=== PATIENT | male | born 1960 | race Caucasian/White ===

== ENCOUNTER 2022-11-29 22:46 | Inpatient (IN) | payer OTHER, SELFPAY ==
--- NOTE | 2022-11-29 | ECG_ITS ---
Test Reason : DYSPENA Blood Pressure : / mmHG Vent. Rate : 154 BPM Atrial Rate : 000 BPM P-R Int : 000 ms QRS Dur : 076 ms QT Int : 300 ms P-R-T Axes : 000 101 061 degrees QTc Int : 480 ms Atrial fibrillation with rapid ventricular response Rightward axis Septal infarct , age undetermined Abnormal ECG No previous ECGs available Referred By: Generic ED Physician Electronically Signed By:ABHISHEK HERNANDEZ
--- NOTE | ~2022-11-29 | XR_ITS ---
EXAMINATION: XR CHEST CLINICAL INFORMATION: SOB COMPARISON: None available. TECHNIQUE: Frontal view of the chest was obtained. FINDINGS: There is mild haziness along the right lung base likely from pleural effusion. There are bilateral patchy opacities throughout both lungs more prominent in the parahilar region suggestive of infiltrates. Heart size and pulmonary vascularity is normal. No gross bony abnormality. XR/XR chest 1V IMPRESSION: 1. Bilateral patchy opacities suggestive of infiltrates. 2. Suspect small to moderate right pleural effusion.
[2022-11-29 22:49] VITALS: BP 168/100; PULSE 95; O2SAT 93
[2022-11-29 22:58] VITALS: PULSE 92; RESP 20; O2SAT 95; BMI 24.5
--- NOTE | 2022-11-29 23:00 | MHC.EDTECH ---
patient came in via ems ,vitals sign taken pt was hooked up to residential monitor ,pt was change into hospital attire .
--- NOTE | 2022-11-29 23:10 | PC.NURSE ---
Valerie, management trainee program stores at at [facility] contacted for more detailed list of pts medications. states she will try to have someone drop it off.
--- NOTE | 2022-11-29 23:30 | ED.GENADULT ---
HPI - General Adult General Chief complaint: Dyspnea Stated complaint: SHORT OF BREATH Time Seen by Provider: 11/29/22 23:25 Source: patient and EMS Mode of arrival: EMS Limitations: no limitations History of Present Illness HPI narrative: 62-year-old male came in by ambulance for evaluation of shortness of breath. Patient has been having shortness of breath for the past 4 days that is worsening when he lay supine in bed, no chest pain, patient overall is a poor historian unable to provide adequate history known history of atrial fibrillation that patient is taking Eliquis for it. No recent travel, no recent prolonged immobilization. Related Data Allergies Allergy/AdvReac Type Severity Reaction Status Date / Time No Known Allergies Allergy Unverified 02/25/20 19:51 [No Known Allergies*] Review of Systems Review of Systems: All other systems are reviewed and are negative Constitutional: Reports as per HPI and Reports no additional constitutional complaints Eyes: Reports as per HPI and Reports no additional eye complaints Reports system reviewed and no additional complaints, except as documented Cardiovascular: Reports as per HPI and Reports no additional cardiovascular complaints Respiratory: Reports as per HPI and Reports no additional respiratory complaints Gastrointestinal: Reports as per HPI and Reports no additional gastrointestinal complaints Genitourinary: Reports no additional female genitourinary complaints Musculoskeletal: Reports no additional musculoskeletal complaints Skin/Breast: Reports system reviewed and no additional complaints, except as docu Psychiatric: Reports no additional psychiatric complaints Endocrine: Reports no additional endocrine complaints Hematologic/Lymphatic: Reports no additional hematologic/lymphatic complaints Allergic/Immunologic: Reports no additional allergic/immunologic complaints Reports system reviewed and no additional complaints, except as documented and Reports Abnormal speech present [facility] Social History Social History Advance Directives: No Advance Directives Information Provided: Yes Physical Exam ED Vital Signs: Vital Signs - 24 hr 11/29/22 22:58 11/29/22 23:32 11/29/22 23:40 Temperature 97.8 F Pulse Rate 92 144 H 161 H Respiratory Rate 20 18 19 Blood Pressure 158/86 H 167/96 H Pulse Oximetry 95 97 96 Oxygen Delivery Method Nasal Cannula Nasal Cannula Room Air Oxygen Flow Rate 2 11/30/22 00:01 11/30/22 00:10 11/30/22 00:32 Temperature Pulse Rate 167 H 155 H 119 H Respiratory Rate 20 20 20 Blood Pressure 148/97 H 143/94 H 128/96 H Pulse Oximetry 94 95 98 Oxygen Delivery Method Nasal Cannula Nasal Cannula Oxygen Flow Rate BMI result Body Mass Index 24.5 Vital signs have been reviewed as appeared to be correct. Blood pressure normal. Heart rate elevated. Respiration rate normal. Temperature normal. Oxygen saturation normal. Appearance: Alert. Oriented X3. No acute distress. Head: Normal external exam. Normocephalic. Atraumatic. No Parker signs noted. No raccoon eyes noted Eyes: PERRLA. EOMI. Conjunctiva and sclera normal. Eyelids normal. ENT: TM's Normal. Pharynx normal. Uvula midline. Moist mucous membranes. No trismus noted. No drooling noted. No muffled voice noted. Neck: Normal inspection. Neck supple. FROM. No adenopathy. Thyroid Normal. No meningeal signs. No neck mass noted. CVS: Irregular rapid heartbeat.. No murmurs noted. Pulses normal throughout. Respiratory: No respiratory distress. Painless inspiration. Breath sounds normal. No wheezes/rales/rhonchi noted. Chest nontender. No accessory muscle usage noted or decreased air movement noted. Abdomen: Soft and nontender. Bowel sounds normal in all 4 quadrants. No distention noted. No organomegaly noted. No visible injury noted. Back: No CVA tenderness. Full range of motion noted. Skin: Skin warm and dry. Normal skin color. Normal skin turgor. No rashes/lesions/lacerations noted. Extremities: No lower extremity edema. Extremities exhibit normal range of motion. Extremities nontender. Neuro: Oriented X 3. Cranial nerve exam: II-XII are grossly intact No motor deficit. No sensory deficit. Reflexes normal. Course Course Course Narrative: 62-year-old male presented with atrial fibrillation with RVR and shortness of breath with mild CHF, patient required multiple doses of Cardizem and started on Cardizem IV drip to control the heart rate. Patient feels better, heart rate now ranging from 80 to 110s. X-ray is suggestive for bilateral pneumonia no sirs criteria, no severe sepsis, no septic shock. Admit to the hospitalist service Medications Administered Generic Name Dose Route Start Last Admin Trade Name Freq PRN Reason Stop Dose Admin Diltiazem HCl 125 mg/ Sodium 125 mls @ 0 mls/hr 11/30/22 00:15 11/30/22 00:33 Chloride IVCONT 10 mg/hr .Q0M ROGE 10 mls/hr Administration Protocol Per Protocol Discontinued Medications Generic Name Dose Route Start Last Admin Trade Name Negrita PRN Reason Stop Dose Admin Diltiazem HCl 20 mg 11/29/22 23:29 11/29/22 23:48 Diltiazem Hcl 50 Mg/10 Ml Vial IVPUSH 11/29/22 23:30 20 mg STAT STA Administration Diltiazem HCl 20 mg 11/30/22 00:07 11/30/22 00:11 Diltiazem Hcl 50 Mg/10 Ml Vial IVPUSH 11/30/22 00:08 20 mg STAT STA Administration Medical Decision Making Differential Diagnosis Differential Diagnoses: The differential diagnosis associated with the presentation includes (AFib with RVR, ACS, CHF, electrolyte abnormalities, severe anemia.) Admission/Observation Consideration of admission/observation: Escalation of care including admission/observation considered Consult Healthcare Provider Management of the patient was discussed with: Hospitalist (Dr. Nagy.) Lab Data MDM Lab Attestation statement: I reviewed the patient's lab results. 11/29/22 23:30 11/29/22 23:30 Labs: Lab Results 11/29/22 11/29/22 11/29/22 Range/Units 23:30 23:30 23:30 WBC 8.6 (4.8-10.8) X10*3/uL RBC 3.87 L (4.60-5.80) X10*6/uL Hgb 11.1 L (14.0-18.0) g/dl Hct 34.6 L (42.0-52.0) % MCV 89.4 (80.0-98.0) fL MCH 28.7 (27.0-33.0) pg MCHC 32.1 (31.0-36.0) g/dl RDW 16.0 (11.0-16.0) % Plt Count 288 (160-400) X10*3/uL MPV 9.4 (9.4-12.4) fL Immature Gran % (Auto) 1.9 H (0.0-0.4) % Neut % (Auto) 72.3 (45-73) % Lymph % (Auto) 11.5 L (20-40) % Charles % (Auto) 13.0 H (2-11) % Eos % (Auto) 0.8 (0-4) % Baso % (Auto) 0.5 (0-2) % Lymph # (Auto) 1.0 L (1.2-4.9) X10*3/uL Charles # (Auto) 1.1 (0.1-1.2) X10*3/uL Eos # (Auto) 0.1 (0.0-0.4) X10*3/uL Baso # (Auto) 0.0 (0.0-0.2) X10*3/uL Abs Immat Gran (auto) 0.16 H (0.00-0.03) X10*3/uL Absolute Neuts (auto) 6.2 (2.0-8.3) x10*3/uL Absolute Nucleated RBC 0.000 (0.0-0.012) X10*3/uL Nucleated RBC % (auto) 0.0 (0.0-0.2) /100WBC PT (10.0-13.1) SEC INR (0.9-1.1) Sodium 134 L (135-145) mmol/L Potassium 4.4 (3.3-5.1) mmol/L Chloride 99 (96-108) mmol/L Carbon Dioxide 23 (22-29) mmol/L Anion Gap 16 (12-20) BUN 20 H (9-16) mg/dL Creatinine 0.82 (0.5-1.4) mg/dL Estim Creat Clear Calc 86.4 Estimated GFR > 60 Random Glucose 423 H* (60-115) mg/dL Lactic Acid (0.5-2.0) mmol/L Calcium 10.0 (8.4-10.2) mg/dL Total Bilirubin 1.7 H (0.0-1.0) mg/dL AST 61 H (5-37) U/L ALT 106 H (0-40) U/L Alkaline Phosphatase 207 H (39-117) U/L Troponin I High Sens (<3.5-35.0) ng/L B-Natriuretic Peptide 1261 H (<100) pg/mL Total Protein 6.9 (6.5-8.0) g/dL Albumin 3.7 (3.5-5.0) g/dL Urine Color Urine Appearance Urine pH (5.0-9.0) Ur Specific Raymond (1.005-1.025) Urine Protein (Neg-Trace) mg/dL Urine Glucose (UA) (Negative) mg/dL Urine Ketones (Negative) mg/dL Urine Blood (Negative) Urine Nitrite (Negative) Ur Leukocyte Esterase (Negative) Urine RBC (0-2) /HPF Urine WBC (0-5) /HPF Ur Squamous Epith Cells (0-2) /HPF Urine Bacteria (None Seen) Hyaline Casts (0-2) /LPF 11/29/22 11/29/22 11/29/22 Range/Units 23:30 23:30 23:36 WBC (4.8-10.8) X10*3/uL RBC (4.60-5.80) X10*6/uL Hgb (14.0-18.0) g/dl Hct (42.0-52.0) % MCV (80.0-98.0) fL MCH (27.0-33.0) pg MCHC (31.0-36.0) g/dl RDW (11.0-16.0) % Plt Count (160-400) X10*3/uL MPV (9.4-12.4) fL Immature Gran % (Auto) (0.0-0.4) % Neut % (Auto) (45-73) % Lymph % (Auto) (20-40) % Charles % (Auto) (2-11) % Eos % (Auto) (0-4) % Baso % (Auto) (0-2) % Lymph # (Auto) (1.2-4.9) X10*3/uL Charles # (Auto) (0.1-1.2) X10*3/uL Eos # (Auto) (0.0-0.4) X10*3/uL Baso # (Auto) (0.0-0.2) X10*3/uL Abs Immat Gran (auto) (0.00-0.03) X10*3/uL Absolute Neuts (auto) (2.0-8.3) x10*3/uL Absolute Nucleated RBC (0.0-0.012) X10*3/uL Nucleated RBC % (auto) (0.0-0.2) /100WBC PT 12.0 (10.0-13.1) SEC INR 1.0 (0.9-1.1) Sodium (135-145) mmol/L Potassium (3.3-5.1) mmol/L Chloride (96-108) mmol/L Carbon Dioxide (22-29) mmol/L Anion Gap (12-20) BUN (9-16) mg/dL Creatinine (0.5-1.4) mg/dL Estim Creat Clear Calc Estimated GFR Random Glucose (60-115) mg/dL Lactic Acid 2.5 H* (0.5-2.0) mmol/L Calcium (8.4-10.2) mg/dL Total Bilirubin (0.0-1.0) mg/dL AST (5-37) U/L ALT (0-40) U/L Alkaline Phosphatase (39-117) U/L Troponin I High Sens 69.6 H (<3.5-35.0) ng/L B-Natriuretic Peptide (<100) pg/mL Total Protein (6.5-8.0) g/dL Albumin (3.5-5.0) g/dL Urine Color Urine Appearance Urine pH (5.0-9.0) Ur Specific Raymond (1.005-1.025) Urine Protein (Neg-Trace) mg/dL Urine Glucose (UA) (Negative) mg/dL Urine Ketones (Negative) mg/dL Urine Blood (Negative) Urine Nitrite (Negative) Ur Leukocyte Esterase (Negative) Urine RBC (0-2) /HPF Urine WBC (0-5) /HPF Ur Squamous Epith Cells (0-2) /HPF Urine Bacteria (None Seen) Hyaline Casts (0-2) /LPF 11/30/22 Range/Units 00:00 WBC (4.8-10.8) X10*3/uL RBC (4.60-5.80) X10*6/uL Hgb (14.0-18.0) g/dl Hct (42.0-52.0) % MCV (80.0-98.0) fL MCH (27.0-33.0) pg MCHC (31.0-36.0) g/dl RDW (11.0-16.0) % Plt Count (160-400) X10*3/uL MPV (9.4-12.4) fL Immature Gran % (Auto) (0.0-0.4) % Neut % (Auto) (45-73) % Lymph % (Auto) (20-40) % Charles % (Auto) (2-11) % Eos % (Auto) (0-4) % Baso % (Auto) (0-2) % Lymph # (Auto) (1.2-4.9) X10*3/uL Charles # (Auto) (0.1-1.2) X10*3/uL Eos # (Auto) (0.0-0.4) X10*3/uL Baso # (Auto) (0.0-0.2) X10*3/uL Abs Immat Gran (auto) (0.00-0.03) X10*3/uL Absolute Neuts (auto) (2.0-8.3) x10*3/uL Absolute Nucleated RBC (0.0-0.012) X10*3/uL Nucleated RBC % (auto) (0.0-0.2) /100WBC PT (10.0-13.1) SEC INR (0.9-1.1) Sodium (135-145) mmol/L Potassium (3.3-5.1) mmol/L Chloride (96-108) mmol/L Carbon Dioxide (22-29) mmol/L Anion Gap (12-20) BUN (9-16) mg/dL Creatinine (0.5-1.4) mg/dL Estim Creat Clear Calc Estimated GFR Random Glucose (60-115) mg/dL Lactic Acid (0.5-2.0) mmol/L Calcium (8.4-10.2) mg/dL Total Bilirubin (0.0-1.0) mg/dL AST (5-37) U/L ALT (0-40) U/L Alkaline Phosphatase (39-117) U/L Troponin I High Sens (<3.5-35.0) ng/L B-Natriuretic Peptide (<100) pg/mL Total Protein (6.5-8.0) g/dL Albumin (3.5-5.0) g/dL Urine Color Yellow Urine Appearance Clear Urine pH 6.5 (5.0-9.0) Ur Specific Raymond >= 1.030 H (1.005-1.025) Urine Protein Trace (Neg-Trace) mg/dL Urine Glucose (UA) >=1000 H (Negative) mg/dL Urine Ketones Negative (Negative) mg/dL Urine Blood Negative (Negative) Urine Nitrite Negative (Negative) Ur Leukocyte Esterase Negative (Negative) Urine RBC 0-2 (0-2) /HPF Urine WBC 0-5 (0-5) /HPF Ur Squamous Epith Cells 0-2 (0-2) /HPF Urine Bacteria None Seen (None Seen) Hyaline Casts 0-2 (0-2) /LPF Independent Interpretation I performed an independent interpretation of an: EKG (Atrial fibrillation at 154 beats per minutes, right axis deviation, normal intervals, no ST-T changes, no old EKG to compare.) and Plain X-Ray (Chest: No acute intrathoracic pathology) Radiology Impression Discussion of test interpretation with radiology: I have reviewed the radiologist's reading. Discharge Plan Discharge Clinical Impression: Congestive heart failure, Atrial fibrillation with RVR, Pneumonia Patient Disposition: Admitted As Inpatient
[2022-11-29 23:32] VITALS: BP 158/86; PULSE 144; RESP 18; TEMP 36.6; O2SAT 97
[2022-11-29 23:40] VITALS: BP 167/96; PULSE 161; RESP 19; O2SAT 96
[2022-11-29 23:43] LABS: MANUAL DIFF FLAG NO
[2022-11-29 23:44] LABS: Basophils Percent Auto 0.5 % (0-2); Eosinophils Absolute Auto 0.1 X10*3/uL (0.0-0.4); Eosinophils Percent Auto 0.8 % (0-4); Hematocrit 34.6 % (42.0-52.0); Hemoglobin 11.1 g/dl (14.0-18.0); Imm Gran Abs Auto 0.16 X10*3/uL (0.00-0.03); Imm Gran Pct Auto 1.9 % (0.0-0.4); Lymphocytes Percent Auto 11.5 % (20-40); Mean Corpuscular HGB Conc 32.1 g/dl (31.0-36.0); Mean Corpuscular Hemoglobin 28.7 pg (27.0-33.0); Mean Corpuscular Volume 89.4 fL (80.0-98.0); Mean Platelet Volume 9.4 fL (9.4-12.4); Monocytes Absolute Auto 1.1 X10*3/uL (0.1-1.2); Neutrophils Absolute Auto 6.2 x10*3/uL (2.0-8.3); Neutrophils Percent Auto 72.3 % (45-73); Platelet Count 288 X10*3/uL (160-400); Red Blood Count 3.87 X10*6/uL (4.60-5.80); White Blood Count 8.6 X10*3/uL (4.8-10.8)
[2022-11-29] MEDS: dilTIAZem HCL 50 MG/10 ML VIAL 20 MG IVPUSH (23:48)
[2022-11-29 23:58] LABS: Lactic Acid 2.5 mmol/L (0.5-2.0)
--- NOTE | 2022-11-29 23:59 | MHC.EDTECH ---
PT 0000 ROUNDING DONE VITALS SIGN TAKEN ,EKG TAKEN AND WAS READ BY PROVIDER ,2ND SET BLOOD CULTURE DRAWN AND SENT TO LAB ,600 ML URINE EMPTY ,WARM BLANKET AND PILLOWS GIVEN ,PT DRANK 120 ML WATER .
[2022-11-30] VITALS (21 sets, daily range): BP systolic 110–188; BP diastolic 60–97; PULSE 67–167; RESP 16–24; TEMP 36.6–37.7; O2SAT 91–98; BMI 25.4
[2022-11-30 00:03] LABS: Alanine Aminotransferase 106 U/L (0-40); Albumin Level 3.7 g/dL (3.5-5.0); Alkaline Phosphatase 207 U/L (39-117); Anion Gap 16 (12-20); Aspartate Amino Transferase 61 U/L (5-37); B Type Natriuretic Peptide 1261 pg/mL (<100); Bilirubin Total 1.7 mg/dL (0.0-1.0); Blood Urea Nitrogen 20 mg/dL (9-16); Carbon Dioxide 23 mmol/L (22-29); Chloride 99 mmol/L (96-108); Creatinine Clr Calc Pharmacy 86.4; Estimated Glomerular Filt Rate > 60; Glucose Random 423 mg/dL (60-115); Potassium 4.4 mmol/L (3.3-5.1); Sodium 134 mmol/L (135-145); Total Protein 6.9 g/dL (6.5-8.0); Troponin-I High Sensitivity 69.6 ng/L (<3.5-35.0)
[2022-11-30] MEDS: dilTIAZem HCL 50 MG/10 ML VIAL 20 MG IVPUSH (00:11)
[2022-11-30 00:18] LABS: Appearance Urine Clear; Color Urine Yellow; Glucose Urine UA >=1000 mg/dL (Negative); Leukocyte Esterase Urine Negative (Negative); Nitrite Urine Negative (Negative); PH 6.5 (5.0-9.0); Specific Gravity - Urine >= 1.030 (1.005-1.025); UMIC TRIGGER UACC YES; Urine Blood Negative (Negative); Urine Ketones Negative (Negative); Urine Protein Trace mg/dL (Neg-Trace)
[2022-11-30 00:20] LABS: Bacteria Urine None Seen (None Seen); Hyaline Casts Urine 0-2 /LPF (0-2); RBC Urine 0-2 /HPF (0-2); Squamous Epithelial Cell Urine 0-2 /HPF (0-2); WBC Urine 0-5 /HPF (0-5)
[2022-11-30] MEDS: dilTIAZem HCL 125 MG in 0.9 % Sodium Chloride 100 ML 10 MG IVCONT (00:33)
--- NOTE | 2022-11-30 00:49 | P.HPHOSP_ITS ---
History of Present Illness Date of Service: 11/30/22 Chief Complaint: Dyspnea This is a 62-year-old male with pertinent history of congestive heart failure, unspecified ejection fraction, AFib on anticoagulation, mood disorder, insulin- dependent diabetes mellitus with neuropathy, essential hypertension, mixed hype rlipidemia presents to the emergency department for evaluation of dyspnea. Patient states he has been having dyspnea for the last 5 days. It has been progressive and worse with ambulation. Also complains of orthopnea and PND. Patient states he stopped taking his Lasix 1 week ago as it made him pee too much. Does endorse palpitations. He denies fever, chills, cough, chest discomfort, abdominal pain, changes in urinary or bowel habits. In the emergency department, patient was found to be in AFib with RVR. He was found to be hypoxemic and placed on supplemental oxygen Review of Systems Constitutional: Constitutional: Reports no additional constitutional complaints Cardiovascular: Cardiovascular: Reports dyspnea on exertion, Reports orthopnea and Reports paroxysmal nocturnal dyspnea Respiratory: Respiratory: Reports dyspnea on exertion Gastrointestinal: Gastrointestinal: Reports no additional gastrointestinal complaints Genitourinary: Genitourinary: Reports no additional male genitourinary complaints [facility] Medical History Atrial fibrillation with RVR Congestive heart failure Insulin dependent type 2 diabetes mellitus Mood disorder Peripheral neuropathy Pertinent family history: No family history of early CAD Social History Advance Directives: No Advance Directives Information Provided: Yes Meds Allergies Allergy/AdvReac Type Severity Reaction Status Date / Time No Known Allergies Allergy Unverified 02/25/20 19:51 [No Known Allergies*] Active Medications: Current Medications Dextrose (Dextrose 50 % 25 Gm/50 Ml Syringe) 25 gm IVPUSH Q15M PRN; Protocol PRN Reason: per Hypoglycemia Standing Ord. Furosemide (Furosemide 40 Mg/4 Ml Vial) 40 mg IVPUSH ONCE ONE; Protocol Stop: 11/30/22 00:42 Furosemide (Furosemide 40 Mg/4 Ml Vial) 40 mg IVPUSH DAILY ROGE; Protocol Glucose (Glucose Gel 15 Gm Gel..Gram.) 15 gm PO Q15M PRN; Protocol PRN Reason: per Hypoglycemia Standing Ord. Diltiazem HCl 125 mg/ Sodium (Chloride) 125 mls @ 0 mls/hr IVCONT .Q0M [facility]; Protocol Last Titration: 11/30/22 00:47 Dose: 15 mg/hr, 15 mls/hr Insulin Human Lispro (Insulin Lispro 100 Unit/Ml 3 Ml Vial) 0 unit SUBCUT QIDACHS [facility]; Protocol Pharmacy Consult (Consult Rx Perform Med Rec) 1 each MISCELLANE ONCE PRN PRN Reason: Consult order Pharmacy Consult (Consult Rx Perform Med Rec) 1 each MISCELLANE ONCE PRN PRN Reason: Consult order Trazodone HCl (Trazodone Hcl 100 Mg Tablet) 100 mg PO ONCE ONE Stop: 11/30/22 00:48 Physical Exam Vital Signs and Narrative: Vital Signs: Last Vital Signs Temp 97.8 F 11/29/22 23:32 Pulse 119 H 11/30/22 00:32 Resp 20 11/30/22 00:32 BP 128/96 H 11/30/22 00:32 Pulse Ox 98 11/30/22 00:32 O2 Del Method Nasal Cannula 11/30/22 00:32 O2 Flow Rate 2 11/29/22 23:32 Oxygen Flow Rate 3 11/29/22 22:58 BMI result Body Mass Index 24.5 Middle-aged male lying in bed in mild distress on supplemental oxygen Neck supple, JVD + Irregularly irregular, S1-S2 heard Bilateral crackles without wheezing Abdomen soft nontender, no guarding, no rigidity Patient is awake, alert and oriented to self, place, time and person ; no focal motor deficit Psych: Normal mood Bilateral pedal edema Results Labs 11/29/22 23:30 11/29/22 23:30 Labs: Laboratory Results - last 24 hr 11/29/22 11/29/22 11/29/22 23:30 23:30 23:30 MCV 89.4 MCH 28.7 MCHC 32.1 RDW 16.0 Plt Count 288 MPV 9.4 Immature Gran % (Auto) 1.9 H Neut % (Auto) 72.3 Lymph % (Auto) 11.5 L Clare % (Auto) 13.0 H Eos % (Auto) 0.8 Baso % (Auto) 0.5 Lymph # (Auto) 1.0 L Clare # (Auto) 1.1 Eos # (Auto) 0.1 Baso # (Auto) 0.0 Abs Immat Gran (auto) 0.16 H Absolute Neuts (auto) 6.2 Absolute Nucleated RBC 0.000 Nucleated RBC % (auto) 0.0 PT INR Anion Gap 16 Estim Creat Clear Calc 86.4 Estimated GFR > 60 Random Glucose 423 H* Lactic Acid Calcium 10.0 Total Bilirubin 1.7 H AST 61 H ALT 106 H Alkaline Phosphatase 207 H Troponin I High Sens B-Natriuretic Peptide 1261 H Total Protein 6.9 Albumin 3.7 Urine Color Urine Appearance Urine pH Ur Specific [place] Urine Protein Urine Glucose (UA) Urine Ketones Urine Blood Urine Nitrite Ur Leukocyte Esterase Urine RBC Urine WBC Ur Squamous Epith Cells Urine Bacteria Hyaline Casts 11/29/22 11/29/22 11/29/22 23:30 23:30 23:36 MCV MCH MCHC RDW Plt Count MPV Immature Gran % (Auto) Neut % (Auto) Lymph % (Auto) Clare % (Auto) Eos % (Auto) Baso % (Auto) Lymph # (Auto) Clare # (Auto) Eos # (Auto) Baso # (Auto) Abs Immat Gran (auto) Absolute Neuts (auto) Absolute Nucleated RBC Nucleated RBC % (auto) PT 12.0 INR 1.0 Anion Gap Estim Creat Clear Calc Estimated GFR Random Glucose Lactic Acid 2.5 H* Calcium Total Bilirubin AST ALT Alkaline Phosphatase Troponin I High Sens 69.6 H B-Natriuretic Peptide Total Protein Albumin Urine Color Urine Appearance Urine pH Ur Specific [place] Urine Protein Urine Glucose (UA) Urine Ketones Urine Blood Urine Nitrite Ur Leukocyte Esterase Urine RBC Urine WBC Ur Squamous Epith Cells Urine Bacteria Hyaline Casts 11/30/22 00:00 MCV MCH MCHC RDW Plt Count MPV Immature Gran % (Auto) Neut % (Auto) Lymph % (Auto) Clare % (Auto) Eos % (Auto) Baso % (Auto) Lymph # (Auto) Clare # (Auto) Eos # (Auto) Baso # (Auto) Abs Immat Gran (auto) Absolute Neuts (auto) Absolute Nucleated RBC Nucleated RBC % (auto) PT INR Anion Gap Estim Creat Clear Calc Estimated GFR Random Glucose Lactic Acid Calcium Total Bilirubin AST ALT Alkaline Phosphatase Troponin I High Sens B-Natriuretic Peptide Total Protein Albumin Urine Color Yellow Urine Appearance Clear Urine pH 6.5 Ur Specific [place] >= 1.030 H Urine Protein Trace Urine Glucose (UA) >=1000 H Urine Ketones Negative Urine Blood Negative Urine Nitrite Negative Ur Leukocyte Esterase Negative Urine RBC 0-2 Urine WBC 0-5 Ur Squamous Epith Cells 0-2 Urine Bacteria None Seen Hyaline Casts 0-2 Imaging Radiologist's Impressions: Impressions Chest X-Ray 11/29/22 23:40 IMPRESSION: 1. Bilateral patchy opacities suggestive of infiltrates. 2. Suspect small to moderate right pleural effusion. Assessment and Plan (1) Congestive heart failure: Status: Acute (2) Atrial fibrillation with RVR: Status: Acute Plan This is a 62-year-old male with pertinent history of congestive heart failure, unspecified ejection fraction, AFib on anticoagulation, mood disorder, insulin- dependent diabetes mellitus with neuropathy, essential hypertension, mixed hyperlipidemia presents to the emergency department for evaluation of dyspnea. #. Acute on chronic congestive heart failure, unspecified ejection fraction: Due to medication noncompliance. Will admit patient and initiate IV Lasix. Consulting Cardiology, appreciate assistance. Obtaining echocardiogram. Strict I's and O's and low-salt diet. On beta-magy and ARB #. AFib with RVR in the setting of above. On IV diltiazem drip in the ER. Obtain TSH and echo. Cardiology as above. Continue home rate and rhythm control agents #. Mood disorder. Continue home mood stabilizers #. Insulin-dependent mellitus with hyperglycemia. Initiating Accu-Cheks with sliding scale insulin before meals and at bedtime #. Acute lactic acidosis due to hepatic congestion in the setting of CHF. No sepsis #. Elevated transaminases due to hepatic congestion #. Elevated troponin, likely type 2 in the setting of increased demand Med rec pending DVT prophylaxis: On Eliquis Full code Cardiac diet Admit as inpatient and will require two night minimum hospital stay for IV d iuresis and close hemodynamic monitoring. Specialist consult pending Time Spent With Patient Time: Total time managing care of this patient today ____ minutes. Quality Stroke Does the patient have a stroke diagnosis?: No VTE Prior VTE?: No VTE Risk Level:: Medical - moderate - high VTE Device Contraindication: Treatment Not Indicated VTE Drug Contraindication: N/A - Med Ordered
--- NOTE | 2022-11-30 01:00 | PC.NURSE ---
Diltiazem turned down to 5mg/hr per Dr. Yakov fuchs order
[2022-11-30] MEDS: traZODone HCL 100 MG TABLET PO (01:02)
[2022-11-30] MEDS: Furosemide 40 MG/4 ML VIAL IVPUSH ×2 (01:02→07:22)
--- NOTE | 2022-11-30 01:39 | PC.NURSE ---
Medication list completed at this time minus inulin dosages. Of note pt is slightly irritable and unsure of times he receives the insulin.
[2022-11-30 01:40] LABS: Reflex Lactate? Lactic Acid Added
--- NOTE | 2022-11-30 01:53 | MHC.EDTECH ---
0200 ROUNDING DONE ,VITALS SIGN TAKEN ,1050 ML URINE EMPTY ,BELONGINGS LIST DONE ,PT AWAKE WATCHING TELEVISION .
[2022-11-30 02:25] LABS: Cancel Lactic Acid Canceled
--- NOTE | 2022-11-30 05:03 | PC.NURSE ---
Pt with intermittent episodes of increased HR to 150-160's when getting up to urinate. HR noted to be 57-82 BPM while resting/sleeping.
[2022-11-30 05:46] LABS: MANUAL DIFF FLAG NO
[2022-11-30 05:47] LABS: Basophils Percent Auto 0.3 % (0-2); Eosinophils Percent Auto 0.3 % (0-4); Hematocrit 32.7 % (42.0-52.0); Hemoglobin 10.7 g/dl (14.0-18.0); Imm Gran Abs Auto 0.08 X10*3/uL (0.00-0.03); Imm Gran Pct Auto 0.9 % (0.0-0.4); Lymphocytes Absolute Auto 1.1 X10*3/uL (1.2-4.9); Lymphocytes Percent Auto 12.6 % (20-40); Mean Corpuscular HGB Conc 32.7 g/dl (31.0-36.0); Mean Corpuscular Hemoglobin 28.8 pg (27.0-33.0); Mean Corpuscular Volume 87.9 fL (80.0-98.0); Mean Platelet Volume 9.4 fL (9.4-12.4); Monocytes Absolute Auto 1.4 X10*3/uL (0.1-1.2); Monocytes Percent Auto 15.1 % (2-11); Neutrophils Absolute Auto 6.3 x10*3/uL (2.0-8.3); Neutrophils Percent Auto 70.8 % (45-73); Platelet Count 288 X10*3/uL (160-400); Red Blood Count 3.72 X10*6/uL (4.60-5.80); Red Cell Distribution Width 15.9 % (11.0-16.0); White Blood Count 8.9 X10*3/uL (4.8-10.8)
[2022-11-30 06:19] LABS: Anion Gap 15 (12-20); Blood Urea Nitrogen 17 mg/dL (9-16); Calcium 9.4 mg/dL (8.4-10.2); Carbon Dioxide 25 mmol/L (22-29); Chloride 98 mmol/L (96-108); Creatinine Clr Calc Pharmacy 89.7; Estimated Glomerular Filt Rate > 60; Potassium 4.1 mmol/L (3.3-5.1); Sodium 134 mmol/L (135-145)
[2022-11-30 06:20] LABS: Glucose Random 365 mg/dL (60-115)
[2022-11-30 06:27] LABS: Thyroid Stimulating Hormone 1.77 uIU/mL (0.32-4.0)
--- NOTE | 2022-11-30 07:00 | CA_ITS ---
Transthoracic Echocardiogram Patient (Last, First, Middle): Isaias Greco, Gender: Male Date of : 1960 Age: 62 Procedure Date: 11/30/2022 Procedure Type: Transthoracic Echocardiogram Location: ER Height: 167.64 cm Weight: 69.85 kg BSA: 1.79 m2 Heart Rate: bpm BP: 130 / 85 mmHg Chief Dog License Inspector: TO Referring MD: Dashawn Nagy MD Symptoms: CHF Study Quality: Adequate ECG Rhythm: Sinus Conclusions: - The left ventricular systolic function is mild to moderately decreased. The calculated ejection fraction is 40% by biplane method. - There is mild to moderate mitral valve regurgitation. - There is mild tricuspid valve regurgitation. - Mild to moderate pulmonary hypertension is present. Findings Left Ventricle Normal left ventricular cavity size. There is moderately increased left ventricular wall thickness. The left ventricular systolic function is mild to moderately decreased. The calculated ejection fraction is 40% by biplane method. There is moderate global hypokinesis. E/E prime ratio is >15, consistent with elevated filling pressures. Evidence suggests grade III (severe) diastolic dysfunction. LV peak GLS -8.3%. Right Ventricle Mildly increased right ventricular cavity size. There is mildly decreased right ventricular systolic function. Atria Both atria are normal in size. Aortic Valve There is a normal trileaflet aortic valve. There is no aortic valve stenosis. There is no aortic valve regurgitation. Mitral Valve There is mild anterior and posterior mitral leaflet thickening. The posterior mitral leaflet has restricted mobility. There is mild to moderate mitral valve regurgitation. There is no mitral valve stenosis. Pulmonic Valve The pulmonic valve is likely normal. Tricuspid Valve There is mild tricuspid valve regurgitation. Mild to moderate pulmonary hypertension is present. Great Vessels The asc aorta is normal in size. Venous The inferior vena cava is mildly dilated and collapses less than 50% with inspiration. There is evidence of a dilated coronary sinus. Pericardium/Pleural There is a trivial pericardial effusion. Prior Study Comparison No prior study available for comparison. Measurements 2D Linear Measurements IVSd: 1.29 0.6-0.9/0.6-1.0 cm LVIDd: 5.35 3.9-5.3/4.2-5.9 cm LVIDd Index: 2.99 2.4-3.2/2.2-3.1 cm/m2 LVIDs: 3.85 2.0-3.6 cm LVPWd: 1.22 0.7-1.1 cm LA Diam: 4.30 2.7-3.8/3.0-4.0 cm LAIDs Index: 2.40 1.5-2.3 cm/m2 LV Mass: 345.76 67-162/88-224 g LV Mass Index: 193.16 43-95/49-115 g/m2 LVOT Diam: 2.00 3.0+(-)1.3 cm 2D Systolic Function EF 4C: 38.60 >55% EF 2C: 44.10 >55% EF BiP: 40.10 >55% Mitral Valve MV Pk E: 1.05 MV PK A: 0.26 MV Decel Time: 190.00 E/A: 4.00 E'Lateral: 7.29 E'Medial: 5.22 E/E' Med: 20.10 E/E' Lat: 14.40 PHT: 56.00 MVA PHT: 3.93 Decel [place]: 5.50 MR Vol - PW Dopp: 33.00 MR VTI: 1.50 MR ERO: 22.00 MR Alias Oliverio: 0.39 MR RAD: 0.70 Aortic Valve AoV Pk Oliverio: 1.62 AoV Mn Oliverio: 1.00 AoV VTI: 0.26 AoV Pk Grad: 10.00 Aov Mn Grad: 5.00 JACKIE Cont.VTI: 2.11 LVOT LVOT Pk Oliverio: 0.99 LVOT Mn Oliverio: 0.58 LVOT VTI: 0.18 LVOT Pk Grad: 4.00 LVOT Mn Grad: 2.00 LVOT Diam: 2.00 LVOT Area: 3.14 Diastolic Function MV Pk E: 1.05 MV Pk A: 0.26 E/A: 4.00 E'Medial: 5.22 E/E' Med: 20.10 E' Laterial: 7.29 E/E' Lat: 14.40 Right Ventricle TAPSE (mm): 18.40 TVS' Oliverio: 12.30 Tricuspid Valve TR Pk Oliverio: 3.11 TR Pk Grad: 39.00 RA Press: 15.00 RVSP: 54.00 Great Vessels Aorta Sinus of Valsalva: 3.05 2.0-3.[address] [place]: 2.80 1.7-3.4 cm Ao Asc: 3.60 2.1-3.4 cm Updated in Other Vendor System with Status of Final Turner Garcia MD electronically signed on 12/01/2022 9:28:56 AM with status of Final
[2022-11-30 07:12] LABS: Glucose, Whole Blood 310 mg/dL (60-115)
[2022-11-30] MEDS: Insulin Lispro 100 UNIT/ML 3 ML VIAL SUBCUT ×4 (07:19→20:24)
--- NOTE | 2022-11-30 08:59 | ECG_ITS ---
Test Reason : afib Blood Pressure : / mmHG Vent. Rate : 086 BPM Atrial Rate : 086 BPM P-R Int : 158 ms QRS Dur : 078 ms QT Int : 362 ms P-R-T Axes : -09 086 139 degrees QTc Int : 433 ms Normal sinus rhythm Septal infarct (cited on or before 29-NOV-2022) Abnormal ECG When compared with ECG of 29-NOV-2022 23:18, Sinus rhythm has replaced Atrial fibrillation Vent. rate has decreased BY 68 BPM Referred By: Abhishek Hernandez Electronically Signed By:ABHISHEK HERNANDEZ
--- NOTE | 2022-11-30 09:14 | MHC.EDTECH ---
EKG was done at 09:03:00 but cant document on worklist it was never added, this pct will document under worklist once added to worklist RN aware
--- NOTE | 2022-11-30 10:09 | PC.NURSE ---
Cardizem stopped, Pt in normal sinus. Pt request sandwich stating he was hungry, educated on elevated glucose levels and eating a healthy snack but continued to request sandwich. sandwich given.
--- NOTE | 2022-11-30 10:31 | PM.CNCAR ---
History of Present Illness History of Present Illness Date of Service: 11/30/22 Chief complaint: Dyspnea Narrative: This is a cardiology consultation regarding atrial fibrillation. Patient has a stated history of congestive heart failure, atrial fibrillation, diabetes and multiple comorbidities. He states that he is homeless. Present complaints for shortness of breath. He has not been able to take medications because of homelessness, per patient. Upon arrival, found to be in atrial fibrillation rapid rate. He has been put on a Cardizem drip. Otherwise, treated for congestive heart failure. We have been asked to see him for further management. Currently, he states he is feeling comfortable. Shortness of breath is somewhat better. No anginal-type chest pains. Does not feel any palpitations. Review of Systems Review of Systems: Yes all other systems are reviewed and are negative Constitutional: Constitutional: Reports as per HPI and Reports no additional constitutional complaints Eyes: Eyes: Reports as per HPI and Denies no additional eye complaints ENT: Denies system reviewed and no additional complaints, except as documented and Reports as per HPI Cardiovascular: Cardiovascular: Reports as per HPI, Reports no additional cardiovascular complaints, Denies acrocyanosis, Denies cool extremities, Denies chest pain, Denies leg edema, Denies lightheadedness, Denies palpitations and Reports dyspnea Respiratory: Respiratory: Reports as per HPI, Denies no additional respiratory complaints and Reports dyspnea Gastrointestinal: Gastrointestinal: Reports as per HPI and Denies no additional gastrointestinal complaints Genitourinary: Genitourinary: Reports no additional male genitourinary complaints and Reports as per HPI Musculoskeletal: Musculoskeletal: Reports no additional musculoskeletal complaints and Reports as per HPI Integumentary/Breasts: Skin/Breast: Reports system reviewed and no additional complaints, except as docu Neurologic: Reports system reviewed and no additional complaints, except as documented and Reports as per HPI Psychiatric: Psychiatric: Reports no additional psychiatric complaints and Reports as per HPI Endocrine: Endocrine: Reports no additional endocrine complaints, Reports as per HPI and Denies palpitations Hematologic/Lymphatic: Hematologic/Lymphatic: Reports no additional hematologic/lymphatic complaints and Reports as per HPI Allergic/Immunologic: Allergic/Immunologic: Reports no additional allergic/immunologic complaints and Reports as per HPI [facility] Past Medical History Medical History Atrial fibrillation with RVR Congestive heart failure Insulin dependent type 2 diabetes mellitus Mood disorder Peripheral neuropathy Family History Pertinent family history: No pertinent family history Social History Social History Advance Directives: Yes Advance Directives on File: Yes Advance Directives Date on File: 11/30/22 Meds Allergies Allergy/AdvReac Type Severity Reaction Status Date / Time No Known Allergies Allergy Unverified 02/25/20 19:51 [No Known Allergies*] Active Medications: Current Medications Acetaminophen (Acetaminophen 325 Mg Tablet) 650 mg PO Q6H PRN PRN Reason: Pain, Mild (Pain Scale 1-3) Dextrose (Dextrose 50 % 25 Gm/50 Ml Syringe) 25 gm IVPUSH Q15M PRN; Protocol PRN Reason: per Hypoglycemia Standing Ord. Furosemide (Furosemide 40 Mg/4 Ml Vial) 40 mg IVPUSH DAILY [facility]; Protocol Last Admin: 11/30/22 07:22 Dose: 40 mg Glucose (Glucose Gel 15 Gm Gel..Gram.) 15 gm PO Q15M PRN; Protocol PRN Reason: per Hypoglycemia Standing Ord. Diltiazem HCl 125 mg/ Sodium (Chloride) 125 mls @ 0 mls/hr IVCONT .Q0M [facility]; Protocol Last Titration: 11/30/22 10:08 Dose: Infused Insulin Human Lispro (Insulin Lispro 100 Unit/Ml 3 Ml Vial) 0 unit SUBCUT QIDACHS [facility]; Protocol Last Admin: 11/30/22 07:19 Dose: 8 unit Melatonin (Melatonin 3 Mg Tablet) 6 mg PO BEDTIME PRN PRN Reason: Insomnia Ondansetron HCl (Ondansetron Hcl 4 Mg/2 Ml Vial) 4 mg IVPUSH Q8H PRN PRN Reason: Nausea and Vomiting Pharmacy Consult (Consult Rx Perform Med Rec) 1 each MISCELLANE ONCE PRN PRN Reason: Consult order Pharmacy Consult (Consult Rx Perform Med Rec) 1 each MISCELLANE ONCE PRN PRN Reason: Consult order Sodium Chloride (0.9 % Sodium Chloride Flush 3 Ml Syringe) 3 ml IVFLUSH QSHIFT [facility] Last Admin: 11/30/22 08:12 Dose: Not Given Home Medications Medication Instructions Recorded Confirmed Last Taken Type albuterol sulfate 90 mcg/actuation 2 puff inhalation NEEDED PRN 11/30/22 11/30/22 Unknown History aerosol inhaler (Ventolin HFA) Shortness Of Breath Or Wheezing apixaban 5 mg tablet (Eliquis) 5 mg PO BID 11/30/22 11/30/22 Unknown History aspirin 81 mg tablet,delayed 81 mg PO DAILY 11/30/22 11/30/22 Unknown History release atorvastatin 40 mg tablet 40 mg PO DAILY 11/30/22 11/30/22 Unknown History baclofen 5 mg tablet 5 mg PO TID 11/30/22 11/30/22 Unknown History duloxetine 30 mg capsule,delayed 30 mg PO DAILY 11/30/22 11/30/22 Unknown History release furosemide 40 mg tablet 40 mg PO DAILY 11/30/22 11/30/22 Unknown History gabapentin 100 mg capsule 200 mg PO TID 11/30/22 11/30/22 Unknown History gabapentin 600 mg tablet 600 mg PO TID 11/30/22 11/30/22 Unknown History insulin aspart U-100 100 unit/mL subcut 11/30/22 Unknown History subcutaneous solution (Novolog U-100 Insulin aspart) insulin glargine 100 unit/mL (3 unit subcut 11/30/22 Unknown History mL) subcutaneous pen (Lantus Solostar U-100 Insulin) labetalol 200 mg tablet 200 mg PO BID 11/30/22 11/30/22 Unknown History lisinopril 5 mg tablet 5 mg PO DAILY 11/30/22 11/30/22 Unknown History metformin 1,000 mg tablet 1,000 mg PO BID 11/30/22 11/30/22 Unknown History Physical Exam Vital Signs: Vital Signs: Last Vital Signs Temp 97.9 F 11/30/22 01:46 Pulse 82 11/30/22 06:35 Resp 20 11/30/22 06:35 BP 130/85 11/30/22 06:35 Pulse Ox 93 11/30/22 06:35 O2 Del Method Nasal Cannula 11/30/22 06:35 O2 Flow Rate 4 11/30/22 06:35 Oxygen Flow Rate 3 11/29/22 22:58 BMI result Body Mass Index 24.5 Const: General: comfortable and no acute distress Orientation/consciousness: patient oriented x3 HEENT: Other: Unremarkable Head: Yes normal to inspection Neck: Neck: Yes normal visual inspection Chest: Chest palpation & inspection: normal inspection of the chest Resp: Auscultation: clear to auscultation bilaterally Cardio: Palpation: normal PMI Heart sounds: S1 normal heart sound present, S2 normal heart sound present, no gallops, no murmurs and no rubs GI: Palpation (GI): Soft to palpation Back/Spine/Pelvis: Other: unremarkable Skin: General skin exam: no rashes or lesions noted Neuro: General: patient oriented x3 Extrem: General: Yes normal to inspection Psych: Mental Status: mental status grossly normal Objective Labs and Meds 11/30/22 05:41 11/30/22 05:41 Lab results: Laboratory Results - last 24 hr 11/29/22 11/29/22 11/29/22 23:30 23:30 23:30 WBC 8.6 RBC 3.87 L Hgb 11.1 L Hct 34.6 L MCV 89.4 MCH 28.7 MCHC 32.1 RDW 16.0 Plt Count 288 MPV 9.4 Immature Gran % (Auto) 1.9 H Neut % (Auto) 72.3 Lymph % (Auto) 11.5 L [place] % (Auto) 13.0 H Eos % (Auto) 0.8 Baso % (Auto) 0.5 Lymph # (Auto) 1.0 L [place] # (Auto) 1.1 Eos # (Auto) 0.1 Baso # (Auto) 0.0 Abs Immat Gran (auto) 0.16 H Absolute Neuts (auto) 6.2 Absolute Nucleated RBC 0.000 Nucleated RBC % (auto) 0.0 PT INR Sodium 134 L Potassium 4.4 Chloride 99 Carbon Dioxide 23 Anion Gap 16 BUN 20 H Creatinine 0.82 Estim Creat Clear Calc 86.4 Estimated GFR > 60 POC Glucose Random Glucose 423 H* Lactic Acid Calcium 10.0 Total Bilirubin 1.7 H AST 61 H ALT 106 H Alkaline Phosphatase 207 H Troponin I High Sens B-Natriuretic Peptide 1261 H Total Protein 6.9 Albumin 3.7 TSH Urine Color Urine Appearance Urine pH Ur Specific [place] Urine Protein Urine Glucose (UA) Urine Ketones Urine Blood Urine Nitrite Ur Leukocyte Esterase Urine RBC Urine WBC Ur Squamous Epith Cells Urine Bacteria Hyaline Casts 11/29/22 11/29/22 11/29/22 23:30 23:30 23:36 WBC RBC Hgb Hct MCV MCH MCHC RDW Plt Count MPV Immature Gran % (Auto) Neut % (Auto) Lymph % (Auto) [place] % (Auto) Eos % (Auto) Baso % (Auto) Lymph # (Auto) [place] # (Auto) Eos # (Auto) Baso # (Auto) Abs Immat Gran (auto) Absolute Neuts (auto) Absolute Nucleated RBC Nucleated RBC % (auto) PT 12.0 INR 1.0 Sodium Potassium Chloride Carbon Dioxide Anion Gap BUN Creatinine Estim Creat Clear Calc Estimated GFR POC Glucose Random Glucose Lactic Acid 2.5 H* Calcium Total Bilirubin AST ALT Alkaline Phosphatase Troponin I High Sens 69.6 H B-Natriuretic Peptide Total Protein Albumin TSH Urine Color Urine Appearance Urine pH Ur Specific [place] Urine Protein Urine Glucose (UA) Urine Ketones Urine Blood Urine Nitrite Ur Leukocyte Esterase Urine RBC Urine WBC Ur Squamous Epith Cells Urine Bacteria Hyaline Casts 11/30/22 11/30/22 11/30/22 00:00 01:05 05:41 WBC RBC Hgb Hct MCV MCH MCHC RDW Plt Count MPV Immature Gran % (Auto) Neut % (Auto) Lymph % (Auto) [place] % (Auto) Eos % (Auto) Baso % (Auto) Lymph # (Auto) [place] # (Auto) Eos # (Auto) Baso # (Auto) Abs Immat Gran (auto) Absolute Neuts (auto) Absolute Nucleated RBC Nucleated RBC % (auto) PT INR Sodium Potassium Chloride Carbon Dioxide Anion Gap BUN Creatinine Estim Creat Clear Calc Estimated GFR POC Glucose Random Glucose Lactic Acid 2.0 Calcium Total Bilirubin AST ALT Alkaline Phosphatase Troponin I High Sens B-Natriuretic Peptide Total Protein Albumin TSH 1.77 Urine Color Yellow Urine Appearance Clear Urine pH 6.5 Ur Specific [place] >= 1.030 H Urine Protein Trace Urine Glucose (UA) >=1000 H Urine Ketones Negative Urine Blood Negative Urine Nitrite Negative Ur Leukocyte Esterase Negative Urine RBC 0-2 Urine WBC 0-5 Ur Squamous Epith Cells 0-2 Urine Bacteria None Seen Hyaline Casts 0-2 11/30/22 11/30/22 11/30/22 05:41 05:41 07:08 WBC 8.9 RBC 3.72 L Hgb 10.7 L Hct 32.7 L MCV 87.9 MCH 28.8 MCHC 32.7 RDW 15.9 Plt Count 288 MPV 9.4 Immature Gran % (Auto) 0.9 H Neut % (Auto) 70.8 Lymph % (Auto) 12.6 L [place] % (Auto) 15.1 H Eos % (Auto) 0.3 Baso % (Auto) 0.3 Lymph # (Auto) 1.1 L [place] # (Auto) 1.4 H Eos # (Auto) 0.0 Baso # (Auto) 0.0 Abs Immat Gran (auto) 0.08 H Absolute Neuts (auto) 6.3 Absolute Nucleated RBC 0.000 Nucleated RBC % (auto) 0.0 PT INR Sodium 134 L Potassium 4.1 Chloride 98 Carbon Dioxide 25 Anion Gap 15 BUN 17 H Creatinine 0.79 Estim Creat Clear Calc 89.7 Estimated GFR > 60 POC Glucose 310 H Random Glucose 365 H* Lactic Acid Calcium 9.4 Total Bilirubin AST ALT Alkaline Phosphatase Troponin I High Sens B-Natriuretic Peptide Total Protein Albumin TSH Urine Color Urine Appearance Urine pH Ur Specific [place] Urine Protein Urine Glucose (UA) Urine Ketones Urine Blood Urine Nitrite Ur Leukocyte Esterase Urine RBC Urine WBC Ur Squamous Epith Cells Urine Bacteria Hyaline Casts ECG Interpretation: EKG was sinus rhythm at 86/Min; cannot exclude old septal infarct; nonspecific T inversions in the anterolateral leads. In the initial EKG, he was in atrial fibrillation with rapid rate. 154/Min. Imaging Radiologist's impression: Impressions Chest X-Ray 11/29/22 23:40 IMPRESSION: 1. Bilateral patchy opacities suggestive of infiltrates. 2. Suspect small to moderate right pleural effusion. Assessment and Plan (1) Atrial fibrillation with RVR: Status: Acute (2) Acute CHF: Status: Acute Plan In the initial EKG, he was in atrial fibrillation rapid ventricular rate. Now in normal sinus rhythm. High sensitivity troponin 69.6. Cardiac BNP is 1261. Other labs reviewed. Overall, atrial fibrillation rapid rate, acute heart failure, noncompliance, homelessness, social issues. Resume his home medications as listed. IV diuretics. Echocardiogram. Optimal management will be limited due to homelessness and social issues. Time Spent With Patient Time: Total time managing care of this patient today ____ minutes. Procedures Date of Service Date of Service: 11/30/22
--- NOTE | 2022-11-30 10:37 | PHA.MEDREC ---
Pharmacy Consult ? Medication Reconciliation Pharmacy has reviewed the medication reconciliation completed by Radha. Multiple discrepancies based off of list given by groups home Spoke with CECY Peraza clinical coordinator as well. Meds not yet order by provider. Patient not on amiodarone, folic acid, methocarbamol, metorpolol, terbinafine, thiamine or trazdone. Gabapentin dose was updated. Insulin - Lantus and Novolog - was add to list. Yennifer Menjivar, PharmD
--- NOTE | 2022-11-30 10:41 | MHC.CM.PN ---
Met with patient in regards to discharge planning. Patient has been homeless for 10 years. He has specific spots that he will stay. Patient was discharged from [facility] due to ETOH abuse on 11/29 to [facility] in [place]. Patient was then transferred to [facility] due to shortness of breath. Patient ambulates independently. No other services prior to coming to the ER. PCP verified. Copy of HCP verified to be on file. IMM explained and signed. Patient is vaxxed and boosted x3. Anticipate patient will return to [facility] when medically stable. Continue to monitor for d/c needs.
[2022-11-30 12:21] LABS: Glucose, Whole Blood 321 mg/dL (60-115)
[2022-11-30 16:21] LABS: Glucose, Whole Blood 229 mg/dL (60-115)
[2022-11-30] MEDS: 0.9 % Sodium Chloride Flush 3 ML SYRINGE IVFLUSH ×2 (16:48→20:14)
[2022-11-30] MEDS: Aspirin Enteric Coated 81 MG TABLET.DR PO (17:25)
[2022-11-30] MEDS: DULoxetine HCl 30 MG CAPSULE.DR PO (17:25)
[2022-11-30] MEDS: lisinopriL 5 MG TABLET PO (17:26)
[2022-11-30] MEDS: Gabapentin 100 MG CAPSULE 200 MG PO (20:14)
[2022-11-30] MEDS: Gabapentin 600 MG TABLET PO (20:14)
[2022-11-30] MEDS: Labetalol HCL 200 MG TABLET PO (20:14)
[2022-11-30] MEDS: Apixaban 5 MG TABLET PO (20:14)
[2022-11-30] MEDS: Melatonin 3 MG TABLET 6 MG PO (20:16)
[2022-11-30 20:27] LABS: Glucose, Whole Blood 243 mg/dL (60-115)
[2022-11-30] MEDS: Albuterol Sulfate 90 MCG 8 GM INHALER 2 PUFF INHALE (20:57)
--- NOTE | 2022-11-30 22:56 | PC.NURSE ---
2100 pts heart rate 140's-150's sustained for 1/2 hr received his labetalol 200mg po at 2014 bp-139/93 notified ordered iv lopressor but at that time heart rate came down into the 80's iv lopressor held.
[2022-11-30] MEDS: Metoprolol Tartrate 5 MG/5 ML VIAL IVPUSH (23:35)
--- NOTE | 2022-11-30 23:56 | PC.NURSE ---
2330 heart rate back up into 130's-140's bp-110/60 notified ordered iv lopressor 5mg given at 2335.Pt asymptomatic will continue to monitor.
[2022-12-01] VITALS (8 sets, daily range): BP systolic 106–158; BP diastolic 50–101; PULSE 67–143; RESP 17–20; TEMP 36.1–37.2; O2SAT 93–99
--- NOTE | 2022-12-01 04:10 | PC.NURSE ---
0240 pt back in sinus rhythm heart rate in 70's.
[2022-12-01] MEDS: ondansetron HCL 4 MG/2 ML VIAL IVPUSH (05:16)
[2022-12-01] MEDS: Metoprolol Tartrate 5 MG/5 ML VIAL IVPUSH (05:46)
--- NOTE | 2022-12-01 05:50 | PC.NURSE ---
pts heart rate back up into 140's-150's bp-139/101 notified ordered 5mg iv lopressor given at 0545.
[2022-12-01 08:03] LABS: Glucose, Whole Blood 312 mg/dL (60-115)
--- NOTE | 2022-12-01 08:22 | P.PNIM_ITS ---
Subjective Subjective Date of Service: 12/01/22 Interval History: f/u on heart failure, overall feels beter Physical Exam Vital Signs: Vital Signs: Last Vital Signs Temp 97.3 F 12/01/22 07:15 Pulse 85 12/01/22 07:15 Resp 20 12/01/22 07:15 BP 158/95 H 12/01/22 07:15 Pulse Ox 98 12/01/22 07:15 O2 Del Method Room Air 12/01/22 07:15 O2 Flow Rate 4 11/30/22 06:35 Oxygen Flow Rate 3 11/29/22 22:58 BMI result Body Mass Index 25.4 Const: Other: General: AO X 3, no acute distress Resp: CTA bilateral CVS: S1,S2, iregular iregular GI: +BS, NT, no distention Skin: No rash Neuro: motor grossly intact Psych: appropriate affect Objective Data Active Medications Acetaminophen (Acetaminophen 325 Mg Tablet) 650 mg PO Q6H PRN PRN Reason: Pain, Mild (Pain Scale 1-3) Acetaminophen (Acetaminophen 325 Mg Tablet) 975 mg PO TID PRN PRN Reason: PAIN Albuterol Sulfate (Albuterol Sulfate 90 Mcg 8 Gm Inhaler) 2 puff INHALE Q4H PRN PRN Reason: Shortness Of Breath Or Wheezing Last Admin: 11/30/22 20:57 Dose: 2 puff Documented By: DARIA Apixaban (Apixaban 5 Mg Tablet) 5 mg PO BID [facility] Last Admin: 11/30/22 20:14 Dose: 5 mg Documented By: DARIA Aspirin (Aspirin Enteric Coated 81 Mg Tablet.) 81 mg PO DAILY [facility] Last Admin: 11/30/22 17:25 Dose: 81 mg Documented By: JESSE Atorvastatin Calcium (Atorvastatin Calcium 40 Mg Tablet) 40 mg PO DAILY [facility] Baclofen (Baclofen 10 Mg Tablet) 5 mg PO TID PRN PRN Reason: Muscle Spasm Dextrose (Dextrose 50 % 25 Gm/50 Ml Syringe) 25 gm IVPUSH Q15M PRN; Protocol PRN Reason: per Hypoglycemia Standing Ord. Duloxetine HCl (Duloxetine Hcl 30 Mg Capsule.) 30 mg PO DAILY [facility] Last Admin: 11/30/22 17:25 Dose: 30 mg Documented By: COTEMA Furosemide (Furosemide 40 Mg/4 Ml Vial) 40 mg IVPUSH DAILY [facility]; Protocol Last Admin: 11/30/22 07:22 Dose: 40 mg Documented By: LOLY Furosemide (Furosemide 40 Mg Tablet) 40 mg PO DAILY [facility]; Protocol Gabapentin (Gabapentin 100 Mg Capsule) 200 mg PO TID [facility] Last Admin: 11/30/22 20:14 Dose: 200 mg Documented By: DARIA Gabapentin (Gabapentin 600 Mg Tablet) 600 mg PO TID [facility] Last Admin: 11/30/22 20:14 Dose: 600 mg Documented By: DARIA Glucose (Glucose Gel 15 Gm Gel..Gram.) 15 gm PO Q15M PRN; Protocol PRN Reason: per Hypoglycemia Standing Ord. Diltiazem HCl 125 mg/ Sodium (Chloride) 125 mls @ 0 mls/hr IVCONT .Q0M [facility]; Protocol Last Titration: 11/30/22 10:08 Dose: 0 mg/hr, 0 mls/hr Documented By: LOLY Insulin Glargine (Insulin Glargine,Hum.Rec.Anlog 100 Unit/Ml 10 Ml Vial) 42 unit SUBCUT DAILY [facility] Insulin Human Lispro (Insulin Lispro 100 Unit/Ml 3 Ml Vial) 0 unit SUBCUT QIDACHS [facility]; Protocol Last Admin: 11/30/22 20:24 Dose: 4 unit Documented By: DARIA Labetalol HCl (Labetalol Hcl 200 Mg Tablet) 200 mg PO BID [facility]; Protocol Last Admin: 11/30/22 20:14 Dose: 200 mg Documented By: DARIA Lisinopril (Lisinopril 5 Mg Tablet) 5 mg PO DAILY [facility]; Protocol Last Admin: 11/30/22 17:26 Dose: 5 mg Documented By: ELLIOTEMA Melatonin (Melatonin 3 Mg Tablet) 6 mg PO BEDTIME PRN PRN Reason: Insomnia Last Admin: 11/30/22 20:16 Dose: 6 mg Documented By: DARIA Metformin HCl (Metformin Hcl 1,000 Mg Tablet) 1,000 mg PO BIDWM [facility] Ondansetron HCl (Ondansetron Hcl 4 Mg/2 Ml Vial) 4 mg IVPUSH Q8H PRN PRN Reason: Nausea and Vomiting Last Admin: 12/01/22 05:16 Dose: 4 mg Documented By: DARIA Pharmacy Consult (Consult Rx Perform Med Rec) 1 each MISCELLANE ONCE PRN PRN Reason: Consult order Sodium Chloride (0.9 % Sodium Chloride Flush 3 Ml Syringe) 3 ml IVFLUSH QSHIFT [facility] Last Admin: 11/30/22 20:14 Dose: 3 ml Documented By: DARIA Labs 11/30/22 05:41 11/30/22 05:41 Labs: Laboratory Results - last 24 hr 11/30/22 11/30/22 11/30/22 12:18 16:17 20:21 POC Glucose 321 H 229 H 243 H 12/01/22 07:51 POC Glucose 312 H Microbiology Microbiology Results: Microbiology 11/29/22 23:55 Blood Culture - Preliminary Blood - Venous No growth after 24 hours. 11/29/22 23:30 Blood Culture - Preliminary Blood - Venous No growth after 24 hours. Assessment and Plan (1) Acute CHF: Status: Acute (2) Atrial fibrillation with RVR: Status: Acute Plan 62-year-old male with pertinent history of congestive heart failure, unspecified ejection fraction, AFib on anticoagulation, mood disorder, insulin- dependent diabetes mellitus with neuropathy, essential hypertension, mixed hyperlipidemia presents to the emergency department for evaluation of dyspnea. #.? Acute on chronic congestive heart failure, unspecified ejection fraction:? Due to medication noncompliance due homelessness and social issues.? -continjue IV lasix, I/O, weight monitoring, echo report pending, continue BB and ARB. Cardiology following #.? AFib with RVR in the setting of above, HR is better, dc IV cardizem, ad m etoprolol and dc labetalol #.? Mood disorder.? Continue home mood stabilizers #.? Insulin-dependent mellitus with hyperglycemia.? continue lantus, ssi #.? Acute lactic acidosis due to hepatic congestion in the setting of CHF.? No sepsis #.? Elevated transaminases due to hepatic congestion #.? Elevated troponin, likely type 2 in the setting of increased demand DVT prophylaxis:? On Eliquis Full code Cardiac diet need for inpatient Heart failure management Time Spent With Patient Time: Total time managing care of this patient today ____ minutes. Quality Stroke Does the patient have a stroke diagnosis?: No VTE Prior VTE?: No VTE Risk Level:: Medical - moderate - high VTE Device Contraindication: Treatment Not Indicated VTE Drug Contraindication: N/A - Med Ordered
[2022-12-01] MEDS: metFORMIN HCl 1,000 MG TABLET 1000 MG PO ×2 (08:23→16:33)
[2022-12-01] MEDS: Gabapentin 600 MG TABLET PO ×3 (08:23→21:38)
[2022-12-01] MEDS: Labetalol HCL 200 MG TABLET PO (08:23)
[2022-12-01] MEDS: Atorvastatin Calcium 40 MG TABLET PO (08:23)
[2022-12-01] MEDS: Gabapentin 100 MG CAPSULE 200 MG PO ×3 (08:23→21:37)
[2022-12-01] MEDS: Apixaban 5 MG TABLET PO ×2 (08:23→21:37)
[2022-12-01] MEDS: DULoxetine HCl 30 MG CAPSULE.DR PO (08:23)
[2022-12-01] MEDS: Aspirin Enteric Coated 81 MG TABLET.DR PO (08:23)
[2022-12-01] MEDS: lisinopriL 5 MG TABLET PO (08:23)
[2022-12-01] MEDS: Furosemide 40 MG/4 ML VIAL IVPUSH (08:24)
[2022-12-01] MEDS: Insulin Lispro 100 UNIT/ML 3 ML VIAL SUBCUT ×4 (08:24→21:37)
[2022-12-01] MEDS: Insulin Glargine,Hum.rec.anlog 100 UNIT/ML 10 ML VIAL 42 UNIT SUBCUT (08:24)
[2022-12-01] MEDS: Baclofen 10 MG TABLET 5 MG PO (08:30)
[2022-12-01] MEDS: Metoprolol Tartrate 25 MG TABLET PO ×4 (09:34→21:37)
[2022-12-01] MEDS: dilTIAZem HCL 125 MG in 0.9 % Sodium Chloride 100 ML 10 MG IVCONT (09:43)
[2022-12-01 11:18] LABS: Glucose, Whole Blood 322 mg/dL (60-115)
[2022-12-01] MEDS: Albuterol Sulfate 90 MCG 8 GM INHALER 2 PUFF INHALE (11:45)
[2022-12-01 16:00] LABS: Glucose, Whole Blood 188 mg/dL (60-115)
[2022-12-01 20:18] LABS: Glucose, Whole Blood 254 mg/dL (60-115)
[2022-12-01] MEDS: 0.9 % Sodium Chloride Flush 3 ML SYRINGE IVFLUSH (21:38)
[2022-12-02 03:26] VITALS: BP 134/76; PULSE 71; RESP 18; TEMP 36.4; O2SAT 94
[2022-12-02 07:38] VITALS: BP 152/89; PULSE 77; RESP 19; TEMP 35.9; O2SAT 93
[2022-12-02 08:01] LABS: Glucose, Whole Blood 175 mg/dL (60-115)
[2022-12-02] MEDS: Furosemide 40 MG/4 ML VIAL IVPUSH (08:23)
[2022-12-02] MEDS: Aspirin Enteric Coated 81 MG TABLET.DR PO (08:24)
[2022-12-02] MEDS: Insulin Lispro 100 UNIT/ML 3 ML VIAL SUBCUT ×3 (08:24→20:19)
[2022-12-02] MEDS: lisinopriL 5 MG TABLET PO (08:24)
[2022-12-02] MEDS: Apixaban 5 MG TABLET PO ×2 (08:24→20:20)
[2022-12-02] MEDS: Albuterol Sulfate 90 MCG 8 GM INHALER 2 PUFF INHALE ×2 (08:24→22:53)
[2022-12-02] MEDS: Metoprolol Tartrate 25 MG TABLET PO ×2 (08:25→17:16)
[2022-12-02] MEDS: metFORMIN HCl 1,000 MG TABLET 1000 MG PO ×2 (08:25→17:15)
[2022-12-02] MEDS: DULoxetine HCl 30 MG CAPSULE.DR PO (08:25)
[2022-12-02] MEDS: Atorvastatin Calcium 40 MG TABLET PO (08:25)
[2022-12-02] MEDS: Gabapentin 100 MG CAPSULE 200 MG PO ×3 (08:25→20:20)
[2022-12-02] MEDS: Gabapentin 600 MG TABLET PO ×3 (08:25→20:19)
[2022-12-02] MEDS: 0.9 % Sodium Chloride Flush 3 ML SYRINGE IVFLUSH ×3 (08:26→23:43)
[2022-12-02] MEDS: Insulin Glargine,Hum.rec.anlog 100 UNIT/ML 10 ML VIAL 42 UNIT SUBCUT (08:26)
[2022-12-02 08:54] LABS: Anion Gap 16 (12-20); Blood Urea Nitrogen 24 mg/dL (9-16); Calcium 9.8 mg/dL (8.4-10.2); Carbon Dioxide 25 mmol/L (22-29); Chloride 98 mmol/L (96-108); Creatinine Clr Calc Pharmacy 93.2; Estimated Glomerular Filt Rate > 60; Glucose Random 157 mg/dL (60-115); Potassium 4.5 mmol/L (3.3-5.1); Sodium 134 mmol/L (135-145)
--- NOTE | 2022-12-02 11:23 | P.PNIM_ITS ---
Subjective Subjective Date of Service: 12/02/22 Interval History: Hadley is here for exacerbation of heart failure and AFIB with RVR, he's doing better now, HR is now controlled, and is in sinus rythm Physical Exam Vital Signs: Vital Signs: Last Vital Signs Temp 96.7 F L 12/02/22 07:38 Pulse 77 12/02/22 07:38 Resp 19 12/02/22 07:38 BP 152/89 H 12/02/22 07:38 Pulse Ox 93 12/02/22 07:38 O2 Del Method Room Air 12/02/22 07:38 O2 Flow Rate 4 11/30/22 06:35 Oxygen Flow Rate 3 11/29/22 22:58 BMI result Body Mass Index 25.4 Const: Other: General: AO X 3, no acute distress Resp: CTA bilateral CVS: S1,S2, regular rate , trace leg edema GI: +BS, NT, no distention Skin: No rash Neuro: motor grossly intact Psych: appropriate affect Objective Data Active Medications Acetaminophen (Acetaminophen 325 Mg Tablet) 650 mg PO Q6H PRN PRN Reason: Pain, Mild (Pain Scale 1-3) Acetaminophen (Acetaminophen 325 Mg Tablet) 975 mg PO TID PRN PRN Reason: PAIN Albuterol Sulfate (Albuterol Sulfate 90 Mcg 8 Gm Inhaler) 2 puff INHALE Q4H PRN PRN Reason: Shortness Of Breath Or Wheezing Last Admin: 12/02/22 08:24 Dose: 2 puff Documented By: DICK Apixaban (Apixaban 5 Mg Tablet) 5 mg PO BID [facility] Last Admin: 12/02/22 08:24 Dose: 5 mg Documented By: DICK Aspirin (Aspirin Enteric Coated 81 Mg Tablet.) 81 mg PO DAILY [facility] Last Admin: 12/02/22 08:24 Dose: 81 mg Documented By: DICK Atorvastatin Calcium (Atorvastatin Calcium 40 Mg Tablet) 40 mg PO DAILY [facility] Last Admin: 12/02/22 08:25 Dose: 40 mg Documented By: DICK Baclofen (Baclofen 10 Mg Tablet) 5 mg PO TID PRN PRN Reason: Muscle Spasm Last Admin: 12/01/22 08:30 Dose: 5 mg Documented By: DICK Dextrose (Dextrose 50 % 25 Gm/50 Ml Syringe) 25 gm IVPUSH Q15M PRN; Protocol PRN Reason: per Hypoglycemia Standing Ord. Duloxetine HCl (Duloxetine Hcl 30 Mg Capsule.Dr) 30 mg PO DAILY [facility] Last Admin: 12/02/22 08:25 Dose: 30 mg Documented By: DICK Furosemide (Furosemide 40 Mg/4 Ml Vial) 40 mg IVPUSH DAILY [facility]; Protocol Last Admin: 12/02/22 08:23 Dose: 40 mg Documented By: DICK Gabapentin (Gabapentin 100 Mg Capsule) 200 mg PO TID [facility] Last Admin: 12/02/22 08:25 Dose: 200 mg Documented By: DICK Gabapentin (Gabapentin 600 Mg Tablet) 600 mg PO TID [facility] Last Admin: 12/02/22 08:25 Dose: 600 mg Documented By: DICK Glucose (Glucose Gel 15 Gm Gel..Gram.) 15 gm PO Q15M PRN; Protocol PRN Reason: per Hypoglycemia Standing Ord. Diltiazem HCl 125 mg/ Sodium (Chloride) 125 mls @ 0 mls/hr IVCONT .Q0M [facility]; Protocol Last Titration: 12/01/22 11:46 Dose: 0 mg/hr, 0 mls/hr Documented By: KATY Insulin Glargine (Insulin Glargine,Hum.Rec.Anlog 100 Unit/Ml 10 Ml Vial) 42 unit SUBCUT DAILY [facility] Last Admin: 12/02/22 08:26 Dose: 42 unit Documented By: DICK Insulin Human Lispro (Insulin Lispro 100 Unit/Ml 3 Ml Vial) 0 unit SUBCUT QIDACHS [facility]; Protocol Last Admin: 12/02/22 08:24 Dose: 2 unit Documented By: DICK Lisinopril (Lisinopril 5 Mg Tablet) 5 mg PO DAILY [facility]; Protocol Last Admin: 12/02/22 08:24 Dose: 5 mg Documented By: DICK Melatonin (Melatonin 3 Mg Tablet) 6 mg PO BEDTIME PRN PRN Reason: Insomnia Last Admin: 11/30/22 20:16 Dose: 6 mg Documented By: DARIA Metformin HCl (Metformin Hcl 1,000 Mg Tablet) 1,000 mg PO BIDWM [facility] Last Admin: 12/02/22 08:25 Dose: 1,000 mg Documented By: DICK Metoprolol Tartrate (Metoprolol Tartrate 25 Mg Tablet) 25 mg PO QID [facility]; Protocol Last Admin: 12/02/22 08:25 Dose: 25 mg Documented By: DICK Ondansetron HCl (Ondansetron Hcl 4 Mg/2 Ml Vial) 4 mg IVPUSH Q8H PRN PRN Reason: Nausea and Vomiting Last Admin: 12/01/22 05:16 Dose: 4 mg Documented By: DARIA Pharmacy Consult (Consult Rx Perform Med Rec) 1 each MISCELLANE ONCE PRN PRN Reason: Consult order Sodium Chloride (0.9 % Sodium Chloride Flush 3 Ml Syringe) 3 ml IVFLUSH [facility] Last Admin: 12/02/22 08:26 Dose: 3 ml Documented By: DICK Labs 11/30/22 05:41 12/02/22 08:04 Labs: Laboratory Results - last 24 hr 12/01/22 12/01/22 12/02/22 15:38 19:59 07:40 Anion Gap Estim Creat Clear Calc Estimated GFR POC Glucose 188 H 254 H 175 H Random Glucose Calcium 12/02/22 08:04 Anion Gap 16 Estim Creat Clear Calc 93.2 Estimated GFR > 60 POC Glucose Random Glucose 157 H Calcium 9.8 Microbiology Microbiology Results: Microbiology 11/29/22 23:55 Blood Culture - Preliminary Blood - Venous No growth after 48 hours. 11/29/22 23:30 Blood Culture - Preliminary Blood - Venous No growth after 48 hours. Assessment and Plan (1) Acute CHF: Status: Acute (2) Atrial fibrillation with RVR: Status: Acute Plan 62-year-old male with congestive heart failure, unspecified ejection fraction, AFib on anticoagulation, mood disorder, insulin-dependent diabetes mellitus with neuropathy, essential hypertension, mixed hyperlipidemia presents to the emergency department with dyspnea and noted to be in heart failure and AFIB with RVR. Acute on chronic HFpEF exacerbation, likely due to AFIB with RVR and non compliant with meds. He has been treated with IV Lasix with good effect, presently negative 4 Liters. Leg edema much reduced. Will transition to oral Lasix 40 daily (home dose), to continue Lisinopril 5 mg and adding Metoprolol 50 mg twice and stop Labetalol. Echo 11/30 showed EF of 40 %. Cardiology sawy him and recommends resuming home meds with change of Labetalol to Metoprolol. AFib with RVR, likely from non-compliant with meds, He has been on IV cardizem and has converted to sinus rythm now. Changing Labetalol to Metoprolol 50 bid, and to continue Eliquis 5 mg daily. Mood disorder.? Continue home mood stabilizers (Doloxitine) Insulin-dependent mellitus with hyperglycemia.? continue Lantus, Metformin and SSI, diabetic diet Acute lactic acidosis due to hepatic congestion in the setting of CHF.? No se psis Elevated transaminases due to hepatic congestion Elevated troponin, likely type 2 in the setting of increased demand DVT prophylaxis:? On Eliquis Full code Cardiac diet anticipated dc in 24 with home services need for inpatient Heart failure management Time Spent With Patient Time: Total time managing care of this patient today ____ minutes. Quality Stroke Does the patient have a stroke diagnosis?: No VTE Prior VTE?: No VTE Risk Level:: Medical - moderate - high VTE Device Contraindication: Treatment Not Indicated VTE Drug Contraindication: N/A - Med Ordered
[2022-12-02 11:25] VITALS: BP 158/94; PULSE 75; RESP 19; TEMP 36.8; O2SAT 94
[2022-12-02 11:48] LABS: Glucose, Whole Blood 230 mg/dL (60-115)
[2022-12-02] MEDS: Baclofen 10 MG TABLET 5 MG PO (11:56)
--- NOTE | 2022-12-02 12:34 | P.PNCA_ITS ---
Subjective Subjective Date of Service: 12/02/22 Interval history: Feels better. No new complaints. Review of Systems Review of Systems Yes all other systems are reviewed and are negative Constitutional: Reports as per HPI and Reports no additional constitutional complaints Eyes: Reports as per HPI and Denies no additional eye complaints Denies system reviewed and no additional complaints, except as documented and Reports as per HPI Cardiovascular: Reports as per HPI, Reports no additional cardiovascular complaints, Denies acrocyanosis, Denies cool extremities, Denies chest pain, Denies leg edema, Denies lightheadedness, Denies palpitations and Denies dyspnea Respiratory: Reports as per HPI, Denies no additional respiratory complaints and Denies dyspnea Gastrointestinal: Reports as per HPI and Denies no additional gastrointestinal complaints Genitourinary: Reports no additional male genitourinary complaints and Reports as per HPI Musculoskeletal: Reports no additional musculoskeletal complaints and Reports as per HPI Skin/Breast: Reports system reviewed and no additional complaints, except as docu Reports system reviewed and no additional complaints, except as documented and Reports as per HPI Psychiatric: Reports no additional psychiatric complaints and Reports as per HPI Endocrine: Reports no additional endocrine complaints, Reports as per HPI and Denies palpitations Hematologic/Lymphatic: Reports no additional hematologic/lymphatic complaints and Reports as per HPI Allergic/Immunologic: Reports no additional allergic/immunologic complaints and Reports as per HPI Physical Exam Vital Signs: Last Vital Signs Temp 98.2 F 12/02/22 11:25 Pulse 75 12/02/22 11:25 Resp 19 12/02/22 11:25 BP 158/94 H 12/02/22 11:25 Pulse Ox 94 12/02/22 11:25 O2 Del Method Room Air 12/02/22 11:25 O2 Flow Rate 4 11/30/22 06:35 Oxygen Flow Rate 3 11/29/22 22:58 BMI result Body Mass Index 25.4 Const General: comfortable and no acute distress Orientation/consciousness: patient oriented x3 HEENT Other: Unremarkable Head: Yes normal to inspection Neck Neck: Yes normal visual inspection Chest Chest palpation & inspection: normal inspection of the chest Resp Auscultation: clear to auscultation bilaterally Cardio Palpation: normal PMI Heart sounds: S1 normal heart sound present, S2 normal heart sound present, no gallops, no murmurs and no rubs GI Palpation (GI): Soft to palpation Back/Spine/Pelvis Other: unremarkable Skin General skin exam: no rashes or lesions noted Neuro General: patient oriented x3 Extrem General: Yes normal to inspection Psych Mental Status: mental status grossly normal Objective Labs and Meds 11/30/22 05:41 12/02/22 08:04 Lab results: Laboratory Results - last 24 hr 12/01/22 12/01/22 12/02/22 15:38 19:59 07:40 Sodium Potassium Chloride Carbon Dioxide Anion Gap BUN Creatinine Estim Creat Clear Calc Estimated GFR POC Glucose 188 H 254 H 175 H Random Glucose Calcium 12/02/22 12/02/22 08:04 11:28 Sodium 134 L Potassium 4.5 Chloride 98 Carbon Dioxide 25 Anion Gap 16 BUN 24 H Creatinine 0.76 Estim Creat Clear Calc 93.2 Estimated GFR > 60 POC Glucose 230 H Random Glucose 157 H Calcium 9.8 Progress Note: A&P Assessment and plan (1) Acute on chronic systolic and diastolic heart failure, NYHA class 3: Status: Acute (2) Atrial fibrillation with RVR: Status: Acute Plan In the initial EKG, he was in atrial fibrillation rapid ventricular rate. Telemetry in the last 24 hours had some episodes of atrial fibrillation rapid rate but overnight essentially been in sinus rhythm. Overall, mainly issues are social, being homelessness and other things that go a long with. Compliance issues again possibly financial. May not be able to use all the guideline based therapies due to the above issues, but at least keep on diuretics and some essential medications like diuretic/beta-blockers/ANDI inhibitors. With regard to anticoagulation, may use if he can take it reliably. LFTs seem elevated. Caution with statins. If cannot be monitored as an outpatient, then probably not use. Discussed with Dr. Cazares. Time Spent With Patient Time: Total time managing care of this patient today 45 minutes. This includes time spent in review of chart, laboratory data, imaging studies, review of telemetry, counseling patient, discussion with hospitalist, RN, documentation, coordination of care. Progress Note: Quality Stroke Does the patient have a stroke diagnosis?: No Procedures Date of Service Date of Service: 12/02/22
[2022-12-02 14:22] LABS: Alanine Aminotransferase 56 U/L (0-40); Albumin Level 3.6 g/dL (3.5-5.0); Alkaline Phosphatase 198 U/L (39-117); Aspartate Amino Transferase 26 U/L (5-37); Bilirubin Direct 0.3 mg/dL (0.0-0.5); Total Protein 6.8 g/dL (6.5-8.0)
[2022-12-02 15:31] LABS: Glucose, Whole Blood 84 mg/dL (60-115)
[2022-12-02 15:47] VITALS: BP 180/85; PULSE 81; RESP 18; TEMP 37.1; O2SAT 93
[2022-12-02 19:35] VITALS: BP 172/86; PULSE 76; RESP 18; TEMP 36.3; O2SAT 93
[2022-12-02 20:09] LABS: Glucose, Whole Blood 199 mg/dL (60-115)
[2022-12-02] MEDS: Metoprolol Tartrate 50 MG TABLET PO (20:20)
[2022-12-02] MEDS: Melatonin 3 MG TABLET 6 MG PO (20:20)
[2022-12-02 22:55] VITALS: BP 150/90; PULSE 68; RESP 18; TEMP 36.8; O2SAT 97
[2022-12-03] VITALS (7 sets, daily range): BP systolic 156–181; BP diastolic 70–102; PULSE 72–163; RESP 17–20; TEMP 36.1–36.9; O2SAT 93–99
[2022-12-03] MEDS: Albuterol Sulfate 90 MCG 8 GM INHALER 2 PUFF INHALE (05:47)
[2022-12-03 07:53] LABS: Glucose, Whole Blood 398 mg/dL (60-115)
[2022-12-03] MEDS: Insulin Lispro 100 UNIT/ML 3 ML VIAL SUBCUT ×2 (08:09→19:59)
[2022-12-03] MEDS: Furosemide 40 MG/4 ML VIAL IVPUSH ×2 (08:09→10:58)
[2022-12-03] MEDS: DULoxetine HCl 30 MG CAPSULE.DR PO (08:09)
[2022-12-03] MEDS: Insulin Glargine,Hum.rec.anlog 100 UNIT/ML 10 ML VIAL 42 UNIT SUBCUT (08:09)
[2022-12-03] MEDS: Apixaban 5 MG TABLET PO ×2 (08:09→19:59)
[2022-12-03] MEDS: Atorvastatin Calcium 40 MG TABLET PO (08:10)
[2022-12-03] MEDS: Metoprolol Tartrate 50 MG TABLET PO ×3 (08:10→19:59)
[2022-12-03] MEDS: Aspirin Enteric Coated 81 MG TABLET.DR PO (08:10)
[2022-12-03] MEDS: Gabapentin 100 MG CAPSULE 200 MG PO ×3 (08:10→19:59)
[2022-12-03] MEDS: metFORMIN HCl 1,000 MG TABLET 1000 MG PO ×2 (08:10→16:44)
[2022-12-03] MEDS: Gabapentin 600 MG TABLET PO ×3 (08:10→19:59)
[2022-12-03] MEDS: lisinopriL 5 MG TABLET PO (08:10)
[2022-12-03] MEDS: 0.9 % Sodium Chloride Flush 3 ML SYRINGE IVFLUSH ×3 (08:11→20:02)
[2022-12-03] MEDS: Digoxin 0.5 MG/2 ML AMPUL 0.25 MG IVPUSH ×2 (10:58→16:44)
[2022-12-03 11:29] LABS: Glucose, Whole Blood 76 mg/dL (60-115)
--- NOTE | 2022-12-03 11:29 | ECG_ITS ---
Test Reason : afib Blood Pressure : / mmHG Vent. Rate : 167 BPM Atrial Rate : 000 BPM P-R Int : 000 ms QRS Dur : 082 ms QT Int : 288 ms P-R-T Axes : 000 097 -46 degrees QTc Int : 480 ms Atrial fibrillation with rapid ventricular response Rightward axis Septal infarct (cited on or before 29-NOV-2022) Abnormal ECG When compared with ECG of 30-NOV-2022 09:03, Atrial fibrillation has replaced Sinus rhythm Vent. rate has increased BY [address] now depressed in Inferior leads Nonspecific T wave abnormality has replaced inverted T waves in Lateral leads Referred By: Aime Pratt Electronically Signed By:ABHISHEK HERNANDEZ
[2022-12-03] MEDS: Dextrose 50 % 25 GM/50 ML SYRINGE IVPUSH (11:36)
[2022-12-03 11:39] LABS: Glucose, Whole Blood 57 mg/dL (60-115)
[2022-12-03] MEDS: dilTIAZem HCL 50 MG/10 ML VIAL 10 MG IVPUSH (11:41)
[2022-12-03 12:17] LABS: Glucose, Whole Blood 132 mg/dL (60-115)
--- NOTE | 2022-12-03 13:24 | MHC.CM.PN ---
PER MULTIDISCIPLINARY ROUNDS PT NOT YET READY FOR D/C, CM WILL CONT TO FOLLOW D/C NEEDS.
--- NOTE | 2022-12-03 14:05 | HO.PM.IMPN ---
Subjective Subjective Date of Service: 12/03/22 Interval History: patient complained of lightheadedness and dizziness noted to be diaphoretic with ventricular rate in 160-180 range denied chest pain, no palpitations, no headache, no weakness noted to have blood sugar of 57 with systolic blood pressure greater than 200, patient denied fever, no chills, no cough, no urinary symptoms of urgency or frequency, tele monitor showed in and out of atrial fibrillation. Review of Systems all other system reviewed and negative. Physical Exam Vital Signs: Vital Signs: Last Vital Signs Temp 97.9 F 12/03/22 13:39 Pulse 142 H 12/03/22 13:39 Resp 20 12/03/22 11:02 BP 156/102 H 12/03/22 13:39 Pulse Ox 96 12/03/22 11:02 O2 Del Method Room Air 12/03/22 11:02 O2 Flow Rate 4 11/30/22 06:35 Oxygen Flow Rate 3 11/29/22 22:58 BMI result Body Mass Index 25.4 Const: Other: General diaphoretic, pale Neck supple no JVD. CVS irregularly irregular rate rhythm, Respiratory lungs clear to auscultation, no respiratory distress, no wheeze, no rhonchi. Gastrointestinal abdomen soft, nontender, bowel sounds audible, no guarding , no rigidity. Extremities no edema. Neuro nonfocal moving all 4 extremity speech clear. Skin no rash psych appropriate affect Objective Data Active Medications Acetaminophen (Acetaminophen 325 Mg Tablet) 650 mg PO Q6H PRN PRN Reason: Pain, Mild (Pain Scale 1-3) Acetaminophen (Acetaminophen 325 Mg Tablet) 975 mg PO TID PRN PRN Reason: PAIN Albuterol Sulfate (Albuterol Sulfate 90 Mcg 8 Gm Inhaler) 2 puff INHALE Q4H PRN PRN Reason: Shortness Of Breath Or Wheezing Last Admin: 12/03/22 05:47 Dose: 2 puff Documented By: AGA Apixaban (Apixaban 5 Mg Tablet) 5 mg PO BID [facility] Last Admin: 12/03/22 08:09 Dose: 5 mg Documented By: SUKHDEEP Aspirin (Aspirin Enteric Coated 81 Mg Tablet.) 81 mg PO DAILY [facility] Last Admin: 12/03/22 08:10 Dose: 81 mg Documented By: SUKHDEEP Atorvastatin Calcium (Atorvastatin Calcium 40 Mg Tablet) 40 mg PO DAILY [facility] Last Admin: 12/03/22 08:10 Dose: 40 mg Documented By: SUKHDEEP Baclofen (Baclofen 10 Mg Tablet) 5 mg PO TID PRN PRN Reason: Muscle Spasm Last Admin: 12/02/22 11:56 Dose: 5 mg Documented By: KATY Dextrose (Dextrose 50 % 25 Gm/50 Ml Syringe) 25 gm IVPUSH Q15M PRN; Protocol PRN Reason: per Hypoglycemia Standing Ord. Last Admin: 12/03/22 11:36 Dose: 25 gm Documented By: SUKHDEEP Digoxin (Digoxin 0.5 Mg/2 Ml Ampul) 0.25 mg IVPUSH Q6H [facility] Stop: 12/03/22 16:46 Last Admin: 12/03/22 10:58 Dose: 0.25 mg Documented By: SUKHDEEP Duloxetine HCl (Duloxetine Hcl 30 Mg Capsule.Dr) 30 mg PO DAILY [facility] Last Admin: 12/03/22 08:09 Dose: 30 mg Documented By: SUKHDEEP Furosemide (Furosemide 40 Mg Tablet) 40 mg PO DAILY [facility]; Protocol Last Admin: 12/03/22 09:49 Dose: Not Given Documented By: SUKHDEEP Non-Admin Reason: GIVEN IV LASIX Gabapentin (Gabapentin 100 Mg Capsule) 200 mg PO TID [facility] Last Admin: 12/03/22 08:10 Dose: 200 mg Documented By: SUKHDEEP Gabapentin (Gabapentin 600 Mg Tablet) 600 mg PO TID [facility] Last Admin: 12/03/22 08:10 Dose: 600 mg Documented By: SUKHDEEP Glucose (Glucose Gel 15 Gm Gel..Gram.) 15 gm PO Q15M PRN; Protocol PRN Reason: per Hypoglycemia Standing Ord. Insulin Glargine (Insulin Glargine,Hum.Rec.Anlog 100 Unit/Ml 10 Ml Vial) 42 unit SUBCUT DAILY [facility] Last Admin: 12/03/22 08:09 Dose: 42 unit Documented By: SUKHDEEP Insulin Human Lispro (Insulin Lispro 100 Unit/Ml 3 Ml Vial) 0 unit SUBCUT QIDACHS [facility]; Protocol Last Admin: 12/03/22 11:42 Dose: Not Given Documented By: SUKHDEEP Non-Admin Reason: No Insulin Coverage Lisinopril (Lisinopril 5 Mg Tablet) 5 mg PO DAILY [facility]; Protocol Last Admin: 12/03/22 08:10 Dose: 5 mg Documented By: SUKHDEEP Melatonin (Melatonin 3 Mg Tablet) 6 mg PO BEDTIME PRN PRN Reason: Insomnia Last Admin: 12/02/22 20:20 Dose: 6 mg Documented By: AGA Metformin HCl (Metformin Hcl 1,000 Mg Tablet) 1,000 mg PO BIDWM [facility] Last Admin: 12/03/22 08:10 Dose: 1,000 mg Documented By: SUKHDEEP Metoprolol Tartrate (Metoprolol Tartrate 50 Mg Tablet) 50 mg PO BID [facility]; Protocol Last Admin: 12/03/22 08:10 Dose: 50 mg Documented By: SUKHDEEP Ondansetron HCl (Ondansetron Hcl 4 Mg/2 Ml Vial) 4 mg IVPUSH Q8H PRN PRN Reason: Nausea and Vomiting Last Admin: 12/01/22 05:16 Dose: 4 mg Documented By: DARIA Pharmacy Consult (Consult Rx Perform Med Rec) 1 each MISCELLANE ONCE PRN PRN Reason: Consult order Sodium Chloride (0.9 % Sodium Chloride Flush 3 Ml Syringe) 3 ml IVFLUSH QSTXFT [facility] Last Admin: 12/03/22 08:11 Dose: 3 ml Documented By: SUKHDEEP Labs 11/30/22 05:41 12/02/22 08:04 Labs: Laboratory Results - last 24 hr 12/02/22 12/02/22 12/02/22 08:04 15:18 20:03 POC Glucose 84 199 H Total Bilirubin 1.0 Direct Bilirubin 0.3 AST 26 ALT 56 H Alkaline Phosphatase 198 H Total Protein 6.8 Albumin 3.6 12/03/22 12/03/22 12/03/22 07:16 11:00 11:34 POC Glucose 398 H* 76 57 L* Total Bilirubin Direct Bilirubin AST ALT Alkaline Phosphatase Total Protein Albumin 12/03/22 12:13 POC Glucose 132 H Total Bilirubin Direct Bilirubin AST ALT Alkaline Phosphatase Total Protein Albumin Assessment and Plan (1) Acute CHF: Status: Acute (2) Atrial fibrillation with RVR: Status: Acute Plan 62-year-old male with congestive heart failure, unspecified ejection fraction, AFib on anticoagulation, mood disorder, insulin-dependent diabetes mellitus with neuropathy, essential hypertension, mixed hyperlipidemia presents to the emergency department with dyspnea and noted to be in heart failure and AFIB with RVR. Acute on chronic systolic and diastolic heart failure exacerbation, likely due to AFIB with RVR and non compliant with meds. treated with IV Lasix with good effect, presently negative 6 Liters. Leg edema reduced, will continue IV Lasix 1 more day. continue Lisinopril 5 mg Echo 11/30 showed EF of 40 %. Cardiology saw him and recommends resuming home meds with change of Labetalol to Metoprolol. AFib with RVR, patient noted to be in and out of atrial fibrillation this morning noted to be in atrial fibrillation with ventricular rate in 160-180 range became symptomatic with elevated blood pressure and diaphoresis treated with IV Cardizem, digoxin with good affect will increase dose of metoprolol to 50 mg t.i.d. for better heart rate control follow clinical course, continue Eliquis 5 mg b.i.d. recommend compliance with home medications. patient previously was on labetalol that has been substituted by metoprolol. Mood disorder.? Continue home mood stabilizers (Duloxetine) Insulin-dependent mellitus with hyperglycemia.? noted to have fluctuating blood sugars, continue Lantus, Metformin and SSI, will check hemoglobin A1c, and diet changed to diabetic. hypoglycemia patient noted to be diaphoretic with blood sugar of 57 treated with D5, blood sugar improved to 130s. Acute lactic acidosis due to hepatic congestion in the setting of CHF.? No sepsis Elevated transaminases due to hepatic congestion, trending down Elevated troponin, likely type 2 in the setting of increased demand, no chest pain, echo showed EF 50% with global hypokinesis, being followed by Cardiology due to noncompliance, homelessness and social issues Cardio recommend medical management with beta blockers , Yobani inhibitors, diuretics and statins. DVT prophylaxis:? On Eliquis Full code need for inpatient Heart failure management and AFib with RVR Time Spent With Patient Time: Total time managing care of this patient today ____ minutes. Quality Stroke Does the patient have a stroke diagnosis?: No VTE Prior VTE?: No VTE Risk Level:: Medical - moderate - high VTE Device Contraindication: Treatment Not Indicated VTE Drug Contraindication: N/A - Med Ordered
[2022-12-03 16:06] LABS: Glucose, Whole Blood 178 mg/dL (60-115)
--- NOTE | 2022-12-03 18:23 | PC.NURSE ---
Pt converted to sinus rhythm at this time, provider notified.
[2022-12-03] MEDS: Nicotine 21 MG PATCH.TD24 TRANSDERMA (18:28)
[2022-12-03 19:50] LABS: Glucose, Whole Blood 279 mg/dL (60-115)
[2022-12-03] MEDS: Melatonin 3 MG TABLET 6 MG PO (22:37)
[2022-12-03] MEDS: Acetaminophen 325 MG TABLET 650 MG PO (22:38)
[2022-12-03] MEDS: Metoprolol Tartrate 5 MG/5 ML VIAL IVPUSH (23:12)
[2022-12-04] MEDS: dilTIAZem HCL 50 MG/10 ML VIAL 10 MG IVPUSH (02:19)
[2022-12-04 04:30] LABS: Glucose, Whole Blood 188 mg/dL (60-115)
[2022-12-04 07:06] LABS: B Type Natriuretic Peptide 1370 pg/mL (<100)
[2022-12-04 07:09] LABS: Blood Urea Nitrogen 20 mg/dL (9-16); Calcium 9.6 mg/dL (8.4-10.2); Creatinine Clr Calc Pharmacy 94.5; Estimated Glomerular Filt Rate > 60; Glucose Random 250 mg/dL (60-115)
[2022-12-04 07:15] LABS: Anion Gap 13 (12-20); Carbon Dioxide 32 mmol/L (22-29); Chloride 97 mmol/L (96-108); Potassium 4.8 mmol/L (3.3-5.1); Sodium 137 mmol/L (135-145)
[2022-12-04 07:18] VITALS: BP 148/81; PULSE 69; RESP 18; TEMP 36.8; O2SAT 99
[2022-12-04 07:27] LABS: Glucose, Whole Blood 216 mg/dL (60-115)
[2022-12-04 08:31] LABS: Estimated Average Glucose 243 mg/dL; Hemoglobin A1c % 10.1 %
[2022-12-04] MEDS: Insulin Glargine,Hum.rec.anlog 100 UNIT/ML 10 ML VIAL 42 UNIT SUBCUT (08:47)
[2022-12-04] MEDS: Aspirin Enteric Coated 81 MG TABLET.DR PO (08:48)
[2022-12-04] MEDS: Nicotine 21 MG PATCH.TD24 TRANSDERMA (08:48)
[2022-12-04] MEDS: 0.9 % Sodium Chloride Flush 3 ML SYRINGE IVFLUSH ×3 (08:49→21:01)
[2022-12-04] MEDS: Gabapentin 100 MG CAPSULE 200 MG PO ×3 (08:49→20:54)
[2022-12-04] MEDS: Metoprolol Tartrate 50 MG TABLET PO ×3 (08:49→20:55)
[2022-12-04] MEDS: DULoxetine HCl 30 MG CAPSULE.DR PO (08:49)
[2022-12-04] MEDS: Gabapentin 600 MG TABLET PO ×3 (08:49→20:54)
[2022-12-04] MEDS: Atorvastatin Calcium 40 MG TABLET PO (08:49)
[2022-12-04] MEDS: Apixaban 5 MG TABLET PO ×2 (08:49→20:55)
[2022-12-04] MEDS: metFORMIN HCl 1,000 MG TABLET 1000 MG PO (08:49)
[2022-12-04] MEDS: lisinopriL 5 MG TABLET PO (08:49)
--- NOTE | 2022-12-04 10:31 | P.PNIM_ITS ---
Subjective Subjective Date of Service: 12/04/22 Interval History: complaining of shortness of breath overnight noted to be in atrial fibrillation required 1 dose of IV Cardizem, denies chest pain, no palpitations, no lightheadedness or dizziness requesting for more food, no recurrent episodes of hypoglycemia, no fevers no chills tolerating diet with no nausea, no vomiting, no abdominal pain. Review of Systems All other system reviewed and negative. Physical Exam Vital Signs: Vital Signs: Last Vital Signs Temp 98.3 F 12/04/22 07:18 Pulse 69 12/04/22 07:18 Resp 18 12/04/22 07:18 BP 148/81 H 12/04/22 07:18 Pulse Ox 99 12/04/22 07:18 O2 Del Method Room Air 12/04/22 07:18 O2 Flow Rate 4 11/30/22 06:35 Oxygen Flow Rate 3 11/29/22 22:58 BMI result Body Mass Index 25.4 Const: Other: General? awake alert x3 no acute distress Neck supple no JVD. CVS? regularly ,rate, rhythm, Respiratory lungs clear to auscultation, no respiratory distress, no wheeze, no rhonchi. Gastrointestinal abdomen soft, non tender, bowel sounds audible, no guarding , no rigidity. Extremities mild left leg edema. Neuro nonfocal moving all 4 extremity speech clear. Skin no rash psych appropriate affect Objective Data Active Medications Acetaminophen (Acetaminophen 325 Mg Tablet) 650 mg PO Q6H PRN PRN Reason: Pain, Mild (Pain Scale 1-3) Last Admin: 12/03/22 22:38 Dose: 650 mg Documented By: OMAR Acetaminophen (Acetaminophen 325 Mg Tablet) 975 mg PO TID PRN PRN Reason: PAIN Albuterol Sulfate (Albuterol Sulfate 90 Mcg 8 Gm Inhaler) 2 puff INHALE Q4H PRN PRN Reason: Shortness Of Breath Or Wheezing Last Admin: 12/03/22 05:47 Dose: 2 puff Documented By: AGA Apixaban (Apixaban 5 Mg Tablet) 5 mg PO BID [facility] Last Admin: 12/04/22 08:49 Dose: 5 mg Documented By: SUKHDEEP Aspirin (Aspirin Enteric Coated 81 Mg Tablet.) 81 mg PO DAILY [facility] Last Admin: 12/04/22 08:48 Dose: 81 mg Documented By: SUKHDEEP Atorvastatin Calcium (Atorvastatin Calcium 40 Mg Tablet) 40 mg PO DAILY [facility] Last Admin: 12/04/22 08:49 Dose: 40 mg Documented By: SUKHDEEP Baclofen (Baclofen 10 Mg Tablet) 5 mg PO TID PRN PRN Reason: Muscle Spasm Last Admin: 12/02/22 11:56 Dose: 5 mg Documented By: KATY Dextrose (Dextrose 50 % 25 Gm/50 Ml Syringe) 25 gm IVPUSH Q15M PRN; Protocol PRN Reason: per Hypoglycemia Standing Ord. Last Admin: 12/03/22 11:36 Dose: 25 gm Documented By: SUKHDEEP Duloxetine HCl (Duloxetine Hcl 30 Mg Capsule.Dr) 30 mg PO DAILY [facility] Last Admin: 12/04/22 08:49 Dose: 30 mg Documented By: SUKHDEEP Furosemide (Furosemide 40 Mg/4 Ml Vial) 40 mg IVPUSH DAILY [facility]; Protocol Gabapentin (Gabapentin 100 Mg Capsule) 200 mg PO TID [facility] Last Admin: 12/04/22 08:49 Dose: 200 mg Documented By: SUKHDEEP Gabapentin (Gabapentin 600 Mg Tablet) 600 mg PO TID [facility] Last Admin: 12/04/22 08:49 Dose: 600 mg Documented By: SUKHDEEP Glucose (Glucose Gel 15 Gm Gel..Gram.) 15 gm PO Q15M PRN; Protocol PRN Reason: per Hypoglycemia Standing Ord. Insulin Glargine (Insulin Glargine,Hum.Rec.Anlog 100 Unit/Ml 10 Ml Vial) 42 unit SUBCUT DAILY [facility] Last Admin: 12/04/22 08:47 Dose: 42 unit Documented By: SUKHDEEP Insulin Human Lispro (Insulin Lispro 100 Unit/Ml 3 Ml Vial) 0 unit SUBCUT QIDACHS [facility]; Protocol Last Admin: 12/04/22 08:50 Dose: Not Given Documented By: SUKHDEEP Non-Admin Reason: HOLD PER PROVIDER Lisinopril (Lisinopril 5 Mg Tablet) 5 mg PO DAILY [facility]; Protocol Last Admin: 12/04/22 08:49 Dose: 5 mg Documented By: SUKHDEEP Melatonin (Melatonin 3 Mg Tablet) 6 mg PO BEDTIME PRN PRN Reason: Insomnia Last Admin: 12/03/22 22:37 Dose: 6 mg Documented By: OMAR Metformin HCl (Metformin Hcl 1,000 Mg Tablet) 1,000 mg PO BIDWM [facility] Last Admin: 12/04/22 08:49 Dose: 1,000 mg Documented By: SUKHDEEP Metoprolol Tartrate (Metoprolol Tartrate 50 Mg Tablet) 50 mg PO BID [facility]; Protocol Last Admin: 12/04/22 08:49 Dose: 50 mg Documented By: SUKHDEEP Nicotine (Nicotine 21 Mg Patch.Td24) 21 mg TRANSDERMA DAILY [facility] Last Admin: 12/04/22 08:48 Dose: 21 mg Documented By: SUKHDEEP Ondansetron HCl (Ondansetron Hcl 4 Mg/2 Ml Vial) 4 mg IVPUSH Q8H PRN PRN Reason: Nausea and Vomiting Last Admin: 12/01/22 05:16 Dose: 4 mg Documented By: DARIA Pharmacy Consult (Consult Rx Perform Med Rec) 1 each MISCELLANE ONCE PRN PRN Reason: Consult order Sodium Chloride (0.9 % Sodium Chloride Flush 3 Ml Syringe) 3 ml IVFLUSH QSHIFT [facility] Last Admin: 12/04/22 08:49 Dose: 3 ml Documented By: SUKHDEEP Labs 11/30/22 05:41 12/04/22 05:56 Labs: Laboratory Results - last 24 hr 12/03/22 12/03/22 12/03/22 11:00 11:34 12:13 Anion Gap Estim Creat Clear Calc Estimated GFR POC Glucose 76 57 L* 132 H Random Glucose Estimat Average Glucose Hemoglobin A1c % Calcium B-Natriuretic Peptide 12/03/22 12/03/22 12/04/22 15:58 19:43 04:25 Anion Gap Estim Creat Clear Calc Estimated GFR POC Glucose 178 H 279 H 188 H Random Glucose Estimat Average Glucose Hemoglobin A1c % Calcium B-Natriuretic Peptide 12/04/22 12/04/22 12/04/22 05:56 05:56 05:56 Anion Gap 13 Estim Creat Clear Calc 94.5 Estimated GFR > 60 POC Glucose Random Glucose 250 H Estimat Average Glucose 243 Hemoglobin A1c % 10.1 Calcium 9.6 B-Natriuretic Peptide 1370 H 12/04/22 07:18 Anion Gap Estim Creat Clear Calc Estimated GFR POC Glucose 216 H Random Glucose Estimat Average Glucose Hemoglobin A1c % Calcium B-Natriuretic Peptide Assessment and Plan (1) Acute CHF: Status: Acute (2) Atrial fibrillation with RVR: Status: Acute Plan 62-year-old male with congestive heart failure, unspecified ejection fraction, AFib on anticoagulation, mood disorder, insulin-dependent diabetes mellitus with neuropathy, essential hypertension, mixed hyperlipidemia presents to the emergency department with dyspnea and noted to be in heart failure and AFIB with RVR. Acute on chronic systolic and diastolic heart failure exacerbation, likely due to AFIB with RVR and non compliant with meds. 9 L negative since admission will give IV Lasix 40 mg today and transition to home dose of Lasix 40 mg starting tomorrow, continue Lisinopril 5 mg Echo 11/30 showed EF of 40 %. Cardiology saw him and recommends resuming home meds with change of Labetalol to Metoprolol. AFib with RVR, patient noted to be in and out of atrial fibrillation on metoprolol 50 mg b.i.d. receiving iv Cardizem will increase dose of metoprolol to 50 mg t.i.d., will treat underlying CHF, continue Eliquis 5 mg b.i.d. recommend compliance with home medications. patient previously was on labetalol that has been substituted by metoprolol. Mood disorder.? Continue home mood stabilizers (Duloxetine) Insulin-dependent mellitus with hyperglycemia.? noted to have fluctuating blood sugars, continue Lantus, Metformin and SSI hemoglobin A1c 10.1, average blood sugar around 250 hypoglycemia resolved with no recurrent episode x 24 mm Acute lactic acidosis due to hepatic congestion in the setting of CHF.? No sepsis Elevated transaminases due to hepatic congestion, LFTs trending down. Elevated troponin, likely type 2 in the setting of increased demand, no chest pain, echo showed EF 50% with global hypokinesis, being followed by Cardiology due to noncompliance, homelessness and social issues Cardio recommend medical m anagement with beta blockers , Yobani inhibitors, diuretics and statins. DVT prophylaxis:? On Eliquis Full code need for inpatient Heart failure management and AFib with RVR Time Spent With Patient Time: Total time managing care of this patient today ____ minutes. Quality Stroke Does the patient have a stroke diagnosis?: No VTE Prior VTE?: No VTE Risk Level:: Medical - moderate - high VTE Device Contraindication: Treatment Not Indicated VTE Drug Contraindication: N/A - Med Ordered
[2022-12-04] MEDS: Furosemide 40 MG/4 ML VIAL IVPUSH (11:00)
[2022-12-04 11:30] VITALS: BP 159/78; PULSE 68; RESP 18; TEMP 37.1; O2SAT 98
[2022-12-04] MEDS: Insulin Lispro 100 UNIT/ML 3 ML VIAL SUBCUT ×2 (11:40→20:54)
[2022-12-04 11:41] LABS: Glucose, Whole Blood 281 mg/dL (60-115)
[2022-12-04 15:09] VITALS: BP 169/70; PULSE 75; RESP 20; TEMP 36.7; O2SAT 97
[2022-12-04 16:13] LABS: Glucose, Whole Blood 74 mg/dL (60-115)
[2022-12-04 16:30] LABS: Glucose, Whole Blood 85 mg/dL (60-115)
[2022-12-04 17:19] LABS: Glucose, Whole Blood 94 mg/dL (60-115)
[2022-12-04 18:57] VITALS: BP 160/80; PULSE 70; RESP 20; TEMP 36.4; O2SAT 99
[2022-12-04 19:41] LABS: Glucose, Whole Blood 227 mg/dL (60-115)
[2022-12-04] MEDS: Acetaminophen 325 MG TABLET 975 MG PO (20:55)
[2022-12-04] MEDS: Melatonin 3 MG TABLET 6 MG PO (20:56)
[2022-12-04 23:23] VITALS: BP 154/87; PULSE 68; RESP 14; TEMP 37; O2SAT 97
[2022-12-05 03:01] VITALS: BP 165/93; PULSE 67; RESP 14; TEMP 36.4; O2SAT 98
[2022-12-05 07:01] LABS: Anion Gap 14 (12-20); Blood Urea Nitrogen 19 mg/dL (9-16); Carbon Dioxide 29 mmol/L (22-29); Chloride 98 mmol/L (96-108); Creatinine Clr Calc Pharmacy 97.1; Estimated Glomerular Filt Rate > 60; Glucose Random 197 mg/dL (60-115); Potassium 4.3 mmol/L (3.3-5.1); Sodium 137 mmol/L (135-145)
[2022-12-05 07:17] VITALS: BP 162/91; PULSE 68; RESP 20; TEMP 36.9; O2SAT 99
[2022-12-05 07:36] LABS: Glucose, Whole Blood 256 mg/dL (60-115)
[2022-12-05] MEDS: Gabapentin 100 MG CAPSULE 200 MG PO ×3 (08:09→20:33)
[2022-12-05] MEDS: Furosemide 40 MG/4 ML VIAL IVPUSH (08:09)
[2022-12-05] MEDS: DULoxetine HCl 30 MG CAPSULE.DR PO (08:09)
[2022-12-05] MEDS: lisinopriL 5 MG TABLET PO (08:09)
[2022-12-05] MEDS: Gabapentin 600 MG TABLET PO ×3 (08:10→20:33)
[2022-12-05] MEDS: metFORMIN HCl 1,000 MG TABLET 1000 MG PO ×2 (08:10→16:23)
[2022-12-05] MEDS: Aspirin Enteric Coated 81 MG TABLET.DR PO (08:10)
[2022-12-05] MEDS: Apixaban 5 MG TABLET PO ×2 (08:10→20:33)
[2022-12-05] MEDS: Metoprolol Tartrate 50 MG TABLET PO ×3 (08:10→20:33)
[2022-12-05] MEDS: Insulin Lispro 100 UNIT/ML 3 ML VIAL SUBCUT ×2 (08:10→20:34)
[2022-12-05] MEDS: Atorvastatin Calcium 40 MG TABLET PO (08:10)
[2022-12-05] MEDS: Insulin Glargine,Hum.rec.anlog 100 UNIT/ML 10 ML VIAL 42 UNIT SUBCUT (08:11)
[2022-12-05] MEDS: Nicotine 21 MG PATCH.TD24 TRANSDERMA (08:12)
[2022-12-05] MEDS: 0.9 % Sodium Chloride Flush 3 ML SYRINGE IVFLUSH ×3 (08:13→20:34)
[2022-12-05 08:20] LABS: B Type Natriuretic Peptide 1207 pg/mL (<100)
[2022-12-05 11:08] VITALS: BP 150/72; PULSE 68; RESP 18; TEMP 36.4; O2SAT 98
[2022-12-05 11:19] LABS: Glucose, Whole Blood 89 mg/dL (60-115)
--- NOTE | 2022-12-05 13:41 | MHC.CM.PN ---
EMR REVIEWED, PER HOSPITALIST ANTIC PT WILL BE READY FOR D/C TOMORROW, CM MET W/PT WHO REQUESTED CM ATTEMPT TO CONTACT [facility] ON HIS BEHALF HE KEPT GETTING A BUSY SIGNAL, CM ATTEMPTED TO CONTACT THEM WELL AND UNABLE TO GET THROUGH D/T BUSY SIGNAL, CM ALSO CONTACTED [facility] OUTPT LOCATION AND WAS UNABLE TO GET THROUGH TO THAT NUMBER WELL D/T BUSY SIGNAL, CM WILL CONT TO TRY AND FOLLOW D/C NEEDS, CM CAN PROVIDE LYFT TRANSPORT BACK TO [facility] IF NEEDED.
--- NOTE | 2022-12-05 14:58 | P.PNIM_ITS ---
Subjective Subjective Date of Service: 12/05/22 Interval History: feeling better this morning less short of breath, denies chest pain, no lightheadedness, no dizziness, requesting for sleeping a since not sleeping well at night, no acute events overnight, remained in normal sinus rhythm with no episodes of atrial fibrillation in last 24 hours. Review of Systems all other system reviewed and negative. Physical Exam Vital Signs: Vital Signs: Last Vital Signs Temp 97.6 F 12/05/22 11:08 Pulse 68 12/05/22 11:08 Resp 18 12/05/22 11:08 BP 150/72 H 12/05/22 11:08 Pulse Ox 98 12/05/22 11:08 O2 Del Method Room Air 12/05/22 11:08 O2 Flow Rate 4 11/30/22 06:35 Oxygen Flow Rate 3 11/29/22 22:58 BMI result Body Mass Index 25.4 Const: Other: General?? awake alert x3 no acute distress Neck supple ,+ JVD. CVS? regularly ,rate, rhythm, Respiratory lungs clear to auscultation, no respiratory distress, no wheeze, no rhonchi. Gastrointestinal abdomen soft, non tender, bowel sounds audible, no guarding , no rigidity. Extremities mild left leg edema. Neuro nonfocal moving all 4 extremity speech clear. Skin no rash psych appropriate affect Objective Data Active Medications Acetaminophen (Acetaminophen 325 Mg Tablet) 650 mg PO Q6H PRN PRN Reason: Pain, Mild (Pain Scale 1-3) Last Admin: 12/03/22 22:38 Dose: 650 mg Documented By: OMAR Acetaminophen (Acetaminophen 325 Mg Tablet) 975 mg PO TID PRN PRN Reason: PAIN Last Admin: 12/04/22 20:55 Dose: 975 mg Documented By: KASHMIR Albuterol Sulfate (Albuterol Sulfate 90 Mcg 8 Gm Inhaler) 2 puff INHALE Q4H PRN PRN Reason: Shortness Of Breath Or Wheezing Last Admin: 12/03/22 05:47 Dose: 2 puff Documented By: AGA Apixaban (Apixaban 5 Mg Tablet) 5 mg PO BID [facility] Last Admin: 12/05/22 08:10 Dose: 5 mg Documented By: ALPA Aspirin (Aspirin Enteric Coated 81 Mg Tablet.) 81 mg PO DAILY [facility] Last Admin: 12/05/22 08:10 Dose: 81 mg Documented By: ALPA Atorvastatin Calcium (Atorvastatin Calcium 40 Mg Tablet) 40 mg PO DAILY [facility] Last Admin: 12/05/22 08:10 Dose: 40 mg Documented By: ALPA Baclofen (Baclofen 10 Mg Tablet) 5 mg PO TID PRN PRN Reason: Muscle Spasm Last Admin: 12/02/22 11:56 Dose: 5 mg Documented By: KATY Dextrose (Dextrose 50 % 25 Gm/50 Ml Syringe) 25 gm IVPUSH Q15M PRN; Protocol PRN Reason: per Hypoglycemia Standing Ord. Last Admin: 12/03/22 11:36 Dose: 25 gm Documented By: ZACHERYSCAMADO Duloxetine HCl (Duloxetine Hcl 30 Mg Capsule.Dr) 30 mg PO DAILY [facility] Last Admin: 12/05/22 08:09 Dose: 30 mg Documented By: ALPA Furosemide (Furosemide 40 Mg/4 Ml Vial) 40 mg IVPUSH DAILY [facility]; Protocol Last Admin: 12/05/22 08:09 Dose: 40 mg Documented By: ALPA Gabapentin (Gabapentin 100 Mg Capsule) 200 mg PO TID [facility] Last Admin: 12/05/22 08:09 Dose: 200 mg Documented By: ALPA Gabapentin (Gabapentin 600 Mg Tablet) 600 mg PO TID [facility] Last Admin: 12/05/22 08:10 Dose: 600 mg Documented By: ALPA Glucose (Glucose Gel 15 Gm Gel..Gram.) 15 gm PO Q15M PRN; Protocol PRN Reason: per Hypoglycemia Standing Ord. Insulin Glargine (Insulin Glargine,Hum.Rec.Anlog 100 Unit/Ml 10 Ml Vial) 42 unit SUBCUT DAILY [facility] Last Admin: 12/05/22 08:11 Dose: 42 unit Documented By: ALPA Insulin Human Lispro (Insulin Lispro 100 Unit/Ml 3 Ml Vial) 0 unit SUBCUT QIDACHS [facility]; Protocol Last Admin: 12/05/22 11:12 Dose: Not Given Documented By: ALPA Non-Admin Reason: No Insulin Coverage Lisinopril (Lisinopril 5 Mg Tablet) 5 mg PO DAILY [facility]; Protocol Last Admin: 12/05/22 08:09 Dose: 5 mg Documented By: ALPA Melatonin (Melatonin 3 Mg Tablet) 6 mg PO BEDTIME PRN PRN Reason: Insomnia Last Admin: 12/04/22 20:56 Dose: 6 mg Documented By: KASHMIR Metformin HCl (Metformin Hcl 1,000 Mg Tablet) 1,000 mg PO BIDWM [facility] Last Admin: 12/05/22 08:10 Dose: 1,000 mg Documented By: ALPA Metoprolol Tartrate (Metoprolol Tartrate 50 Mg Tablet) 50 mg PO TID [facility]; Protocol Last Admin: 12/05/22 08:10 Dose: 50 mg Documented By: ALPA Nicotine (Nicotine 21 Mg Patch.Td24) 21 mg TRANSDERMA DAILY [facility] Last Admin: 12/05/22 08:12 Dose: 21 mg Documented By: ALPA Ondansetron HCl (Ondansetron Hcl 4 Mg/2 Ml Vial) 4 mg IVPUSH Q8H PRN PRN Reason: Nausea and Vomiting Last Admin: 12/01/22 05:16 Dose: 4 mg Documented By: DARIA Pharmacy Consult (Consult Rx Perform Med Rec) 1 each MISCELLANE ONCE PRN PRN Reason: Consult order Sodium Chloride (0.9 % Sodium Chloride Flush 3 Ml Syringe) 3 ml IVFLUSH QSHIFT [facility] Last Admin: 12/05/22 08:13 Dose: 3 ml Documented By: ALPA Labs 11/30/22 05:41 12/05/22 06:22 Labs: Laboratory Results - last 24 hr 12/04/22 12/04/22 12/04/22 16:05 16:27 17:15 Anion Gap Estim Creat Clear Calc Estimated GFR POC Glucose 74 85 94 Random Glucose Calcium B-Natriuretic Peptide 12/04/22 12/05/22 12/05/22 19:34 06:22 06:22 Anion Gap 14 Estim Creat Clear Calc 97.1 Estimated GFR > 60 POC Glucose 227 H Random Glucose 197 H Calcium 10.0 B-Natriuretic Peptide 1207 H 12/05/22 12/05/22 07:20 11:07 Anion Gap Estim Creat Clear Calc Estimated GFR POC Glucose 256 H 89 Random Glucose Calcium B-Natriuretic Peptide Microbiology Microbiology Results: Microbiology 11/29/22 23:55 Blood Culture - Final Blood - Venous No growth after 5 days. 11/29/22 23:30 Blood Culture - Final Blood - Venous No growth after 5 days. Assessment and Plan (1) Acute CHF: Status: Acute (2) Atrial fibrillation with RVR: Status: Acute Plan 62-year-old male with congestive heart failure, unspecified ejection fraction, AFib on anticoagulation, mood disorder, insulin-dependent diabetes mellitus with neuropathy, essential hypertension, mixed hyperlipidemia presents to the emergency department with dyspnea and noted to be in heart failure and AFIB with RVR. Acute on chronic systolic and diastolic heart failure exacerbation, likely due to AFIB with RVR and non compliance with meds. 9 L negative since admission will give IV Lasix 40 mg today and reassess at a.m.for continued IV lasix vs po lasix 40mg home dose, continue Lisinopril 5 mg Echo 11/30 showed EF of 40 %. Cardiology saw him and recommends resuming home meds with change of Labetalol to Metoprolol. AFib with RVR, patient noted to be in and out of atrial fibrillation therefore placed on metoprolol to 50 mg t.i.d., continue Eliquis 5 mg b.i.d. recommend compliance with home medications. patient previously was on labetalol that has been substituted by metoprolol. will transition to metoprolol 75 mg b.i.d. at a.m. if remains stable in next 24 hours Mood disorder.? Continue home mood stabilizers (Duloxetine) Insulin-dependent mellitus with hyperglycemia.? noted to have fluctuating blood sugars, continue Lantus, diabetic diet,Metformin and SSI hemoglobin A1c 10.1, average blood sugar around 250 hypoglycemia resolved with no recurrent episode Acute lactic acidosis due to hepatic congestion in the setting of CHF.? No sepsis Elevated transaminases due to hepatic congestion, LFTs trending down, will continue statins and recommend close outpatient follow-up. cardiology concern about use of statins with elevated LFTs Elevated troponin, likely type 2 in the setting of increased demand, no chest pain, echo showed EF 50% with global hypokinesis, being followed by Cardiology due to noncompliance, homelessness and social issues Cardio recommend medical management with beta blockers , Yobani inhibitors, diuretics and statins. tobacco use disorder continue nicotine patch DVT prophylaxis:? On Eliquis Full code need inpatient Heart failure management and AFib with RVR . Time Spent With Patient Time: Total time managing care of this patient today ____ minutes. Quality Stroke Does the patient have a stroke diagnosis?: No VTE Prior VTE?: No VTE Risk Level:: Medical - moderate - high VTE Device Contraindication: Treatment Not Indicated VTE Drug Contraindication: N/A - Med Ordered
[2022-12-05 15:57] VITALS: BP 130/70; PULSE 74; RESP 20; TEMP 36.7; O2SAT 98
[2022-12-05 16:16] LABS: Glucose, Whole Blood 146 mg/dL (60-115)
[2022-12-05] MEDS: Acetaminophen 325 MG TABLET 650 MG PO (16:29)
[2022-12-05] MEDS: Baclofen 10 MG TABLET 5 MG PO (16:30)
[2022-12-05 19:21] VITALS: BP 122/84; PULSE 73; RESP 18; TEMP 35.6; O2SAT 97
[2022-12-05 20:23] LABS: Glucose, Whole Blood 160 mg/dL (60-115)
[2022-12-05] MEDS: traZODone HCL 100 MG TABLET PO (20:33)
[2022-12-05] MEDS: Metoprolol Tartrate 5 MG/5 ML VIAL IVPUSH (22:00)
--- NOTE | 2022-12-05 22:17 | PC.NURSE ---
220 pts went into at fib with heart rate 130'-140's. notified and pt medicated with lopressor 5mg IV.at 2214 pt was sinus rhythm heart rate 60's.few minutes later back in at fib in the 130's-140's again.
[2022-12-05 23:50] VITALS: BP 102/64; PULSE 62; RESP 20; TEMP 36.1; O2SAT 94
--- NOTE | 2022-12-06 00:07 | PC.NURSE ---
2300 pt back in sinus rhythm.
[2022-12-06 03:17] VITALS: BP 108/57; PULSE 62; RESP 20; TEMP 36.1; O2SAT 96
[2022-12-06 07:28] LABS: Alanine Aminotransferase 25 U/L (0-40); Albumin Level 2.9 g/dL (3.5-5.0); Alkaline Phosphatase 118 U/L (39-117); Anion Gap 10 (12-20); Aspartate Amino Transferase 21 U/L (5-37); Bilirubin Direct 0.2 mg/dL (0.0-0.5); Bilirubin Total 0.4 mg/dL (0.0-1.0); Blood Urea Nitrogen 22 mg/dL (9-16); Calcium 9.9 mg/dL (8.4-10.2); Carbon Dioxide 31 mmol/L (22-29); Chloride 101 mmol/L (96-108); Creatinine Clr Calc Pharmacy 90.8; Estimated Glomerular Filt Rate > 60; Glucose Random 182 mg/dL (60-115); Potassium 4.4 mmol/L (3.3-5.1); Sodium 138 mmol/L (135-145); Total Protein 5.5 g/dL (6.5-8.0)
[2022-12-06 07:37] LABS: Glucose, Whole Blood 215 mg/dL (60-115)
[2022-12-06 08:00] VITALS: BP 145/70; PULSE 66; RESP 18; TEMP 36.3; O2SAT 97
[2022-12-06] MEDS: Gabapentin 100 MG CAPSULE 200 MG PO ×3 (08:02→20:43)
[2022-12-06] MEDS: Furosemide 40 MG/4 ML VIAL IVPUSH (08:03)
[2022-12-06] MEDS: metFORMIN HCl 1,000 MG TABLET 1000 MG PO ×2 (08:03→15:52)
[2022-12-06] MEDS: Metoprolol Tartrate 50 MG TABLET PO (08:03)
[2022-12-06] MEDS: Gabapentin 600 MG TABLET PO ×3 (08:03→20:43)
[2022-12-06] MEDS: DULoxetine HCl 30 MG CAPSULE.DR PO (08:03)
[2022-12-06] MEDS: Apixaban 5 MG TABLET PO ×2 (08:03→20:44)
[2022-12-06] MEDS: Atorvastatin Calcium 40 MG TABLET PO (08:03)
[2022-12-06] MEDS: Aspirin Enteric Coated 81 MG TABLET.DR PO (08:03)
[2022-12-06] MEDS: lisinopriL 5 MG TABLET PO (08:03)
[2022-12-06] MEDS: Insulin Glargine,Hum.rec.anlog 100 UNIT/ML 10 ML VIAL 42 UNIT SUBCUT (08:04)
[2022-12-06] MEDS: Insulin Lispro 100 UNIT/ML 3 ML VIAL SUBCUT ×3 (08:04→20:43)
[2022-12-06] MEDS: Nicotine 21 MG PATCH.TD24 TRANSDERMA (08:10)
[2022-12-06] MEDS: 0.9 % Sodium Chloride Flush 3 ML SYRINGE IVFLUSH ×3 (08:11→20:44)
[2022-12-06] MEDS: Acetaminophen 325 MG TABLET 975 MG PO ×2 (08:15→15:52)
--- NOTE | 2022-12-06 09:11 | HO.PM.IMPN ---
Subjective Subjective Date of Service: 12/06/22 Interval History: Feels better, no sob, remains in sinus Physical Exam Vital Signs: Vital Signs: Last Vital Signs Temp 97.3 F 12/06/22 08:00 Pulse 66 12/06/22 08:00 Resp 18 12/06/22 08:00 BP 145/70 H 12/06/22 08:00 Pulse Ox 97 12/06/22 08:00 O2 Del Method Room Air 12/06/22 08:00 O2 Flow Rate 4 11/30/22 06:35 Oxygen Flow Rate 3 11/29/22 22:58 BMI result Body Mass Index 25.4 Const: Other: General?? awake alert x3 no acute distress Neck supple ,+ JVD. CVS? regularly ,rate, rhythm, Respiratory lungs clear to auscultation, no respiratory distress, no wheeze, no rhonchi. Gastrointestinal abdomen soft, non tender, bowel sounds audible, no guarding , no rigidity. Extremities mild left leg edema. Neuro nonfocal moving all 4 extremity speech clear. Skin no rash psych appropriate affect Objective Data Active Medications Acetaminophen (Acetaminophen 325 Mg Tablet) 650 mg PO Q6H PRN PRN Reason: Pain, Mild (Pain Scale 1-3) Last Admin: 12/05/22 16:29 Dose: 650 mg Documented By: VANDANA Acetaminophen (Acetaminophen 325 Mg Tablet) 975 mg PO TID PRN PRN Reason: PAIN Last Admin: 12/06/22 08:15 Dose: 975 mg Documented By: YSABEL Albuterol Sulfate (Albuterol Sulfate 90 Mcg 8 Gm Inhaler) 2 puff INHALE Q4H PRN PRN Reason: Shortness Of Breath Or Wheezing Last Admin: 12/03/22 05:47 Dose: 2 puff Documented By: AGA Apixaban (Apixaban 5 Mg Tablet) 5 mg PO BID [facility] Last Admin: 12/06/22 08:03 Dose: 5 mg Documented By: YSABEL Aspirin (Aspirin Enteric Coated 81 Mg Tablet.) 81 mg PO DAILY [facility] Last Admin: 12/06/22 08:03 Dose: 81 mg Documented By: YSABEL Atorvastatin Calcium (Atorvastatin Calcium 40 Mg Tablet) 40 mg PO DAILY [facility] Last Admin: 12/06/22 08:03 Dose: 40 mg Documented By: YSABEL Baclofen (Baclofen 10 Mg Tablet) 5 mg PO TID PRN PRN Reason: Muscle Spasm Last Admin: 12/05/22 16:30 Dose: 5 mg Documented By: VANDANA Dextrose (Dextrose 50 % 25 Gm/50 Ml Syringe) 25 gm IVPUSH Q15M PRN; Protocol PRN Reason: per Hypoglycemia Standing Ord. Last Admin: 12/03/22 11:36 Dose: 25 gm Documented By: SUKHDEEP Duloxetine HCl (Duloxetine Hcl 30 Mg Capsule.Dr) 30 mg PO DAILY [facility] Last Admin: 12/06/22 08:03 Dose: 30 mg Documented By: YSABEL Furosemide (Furosemide 40 Mg Tablet) 40 mg PO DAILY [facility]; Protocol Gabapentin (Gabapentin 100 Mg Capsule) 200 mg PO TID [facility] Last Admin: 12/06/22 08:02 Dose: 200 mg Documented By: YSABEL Gabapentin (Gabapentin 600 Mg Tablet) 600 mg PO TID [facility] Last Admin: 12/06/22 08:03 Dose: 600 mg Documented By: YSABEL Glucose (Glucose Gel 15 Gm Gel..Gram.) 15 gm PO Q15M PRN; Protocol PRN Reason: per Hypoglycemia Standing Ord. Insulin Glargine (Insulin Glargine,Hum.Rec.Anlog 100 Unit/Ml 10 Ml Vial) 42 unit SUBCUT DAILY [facility] Last Admin: 12/06/22 08:04 Dose: 42 unit Documented By: YSABEL Insulin Human Lispro (Insulin Lispro 100 Unit/Ml 3 Ml Vial) 0 unit SUBCUT QIDACHS [facility]; Protocol Last Admin: 12/06/22 08:04 Dose: 4 unit Documented By: YSABEL Lisinopril (Lisinopril 5 Mg Tablet) 5 mg PO DAILY [facility]; Protocol Last Admin: 12/06/22 08:03 Dose: 5 mg Documented By: YSABEL Melatonin (Melatonin 3 Mg Tablet) 6 mg PO BEDTIME PRN PRN Reason: Insomnia Last Admin: 12/04/22 20:56 Dose: 6 mg Documented By: KASHMIR Metformin HCl (Metformin Hcl 1,000 Mg Tablet) 1,000 mg PO BIDWM [facility] Last Admin: 12/06/22 08:03 Dose: 1,000 mg Documented By: YSABEL Metoprolol Tartrate (Metoprolol Tartrate 50 Mg Tablet) 50 mg PO TID [facility]; Protocol Last Admin: 12/06/22 08:03 Dose: 50 mg Documented By: YSABEL Nicotine (Nicotine 21 Mg Patch.Td24) 21 mg TRANSDERMA DAILY [facility] Last Admin: 12/06/22 08:10 Dose: 21 mg Documented By: YSABEL Ondansetron HCl (Ondansetron Hcl 4 Mg/2 Ml Vial) 4 mg IVPUSH Q8H PRN PRN Reason: Nausea and Vomiting Last Admin: 12/01/22 05:16 Dose: 4 mg Documented By: DARIA Pharmacy Consult (Consult Rx Perform Med Rec) 1 each MISCELLANE ONCE PRN PRN Reason: Consult order Sodium Chloride (0.9 % Sodium Chloride Flush 3 Ml Syringe) 3 ml IVFLUSH [facility] Last Admin: 12/06/22 08:11 Dose: 3 ml Documented By: YSABEL Trazodone HCl (Trazodone Hcl 100 Mg Tablet) 100 mg PO BEDTIME PRN PRN Reason: Insomnia Last Admin: 12/05/22 20:33 Dose: 100 mg Documented By: ODRISM Labs 11/30/22 05:41 12/06/22 06:42 Labs: Laboratory Results - last 24 hr 12/05/22 12/05/22 12/05/22 11:07 16:09 20:07 Anion Gap Estim Creat Clear Calc Estimated GFR POC Glucose 89 146 H 160 H Random Glucose Calcium Total Bilirubin Direct Bilirubin AST ALT Alkaline Phosphatase Total Protein Albumin 12/06/22 12/06/22 06:42 07:05 Anion Gap 10 L Estim Creat Clear Calc 90.8 Estimated GFR > 60 POC Glucose 215 H Random Glucose 182 H Calcium 9.9 Total Bilirubin 0.4 Direct Bilirubin 0.2 AST 21 ALT 25 Alkaline Phosphatase 118 H Total Protein 5.5 L Albumin 2.9 L Assessment and Plan (1) Acute on chronic systolic and diastolic heart failure, NYHA class 3: Status: Acute (2) Acute CHF: Status: Acute (3) Peripheral neuropathy: Status: Acute (4) Mood disorder: Status: Acute Plan 62-year-old male with congestive heart failure, unspecified ejection fraction, AFib on anticoagulation, mood disorder, insulin-dependent diabetes mellitus with neuropathy, essential hypertension, mixed hyperlipidemia presents to the emergency department with dyspnea and noted to be in heart failure and AFIB with RVR. Acute on chronic systolic and diastolic heart failure exacerbation, likely due to AFIB with RVR and non compliance with meds. 10 L negative since admission. Change IV Lasix to PO starting tomorrow, continue Lisinopril 5 mg Echo 11/30 showed EF of 40 %. Cardiology saw him and recommends resuming home meds and to change of Labetalol to Metoprolol. AFib with RVR, patient noted to be in and out of atrial fibrillation therefore placed on metoprolol to 50 mg t.i.d., continue Eliquis 5 mg b.i.d. recommend compliance with home medications. patient previously was on labetalol that has been substituted by metoprolol. will transition to metoprolol 75 mg b.i.d. today Mood disorder.? Continue home mood stabilizers (Duloxetine) Insulin-dependent mellitus with hyperglycemia.? noted to have fluctuating blood sugars, continue Lantus, diabetic diet,Metformin and SSI hemoglobin A1c 10.1, average blood sugar around 250 hypoglycemia resolved with no recurrent episode Acute lactic acidosis due to hepatic congestion in the setting of CHF.? No sepsis Elevated transaminases due to hepatic congestion, LFTs trending down, will continue statins and recommend close outpatient follow-up. cardiology concern about use of statins with elevated LFTs Elevated troponin, likely type 2 in the setting of increased demand, no chest pain, echo showed EF 50% with global hypokinesis, being followed by Cardiology due to noncompliance, homelessness and social issues Cardio recommend medical management with beta blockers , Yobani inhibitors, diuretics and statins. tobacco use disorder continue nicotine patch DVT prophylaxis:? On Eliquis Full code need inpatient Heart failure management and AFib with RVR . Time Spent With Patient Time: Total time managing care of this patient today ____ minutes. Quality Stroke Does the patient have a stroke diagnosis?: No VTE Prior VTE?: No VTE Risk Level:: Medical - moderate - high VTE Device Contraindication: Treatment Not Indicated VTE Drug Contraindication: N/A - Med Ordered
[2022-12-06 11:39] VITALS: BP 136/68; PULSE 68; RESP 18; TEMP 36.7; O2SAT 98
[2022-12-06 11:52] LABS: Glucose, Whole Blood 157 mg/dL (60-115)
--- NOTE | 2022-12-06 12:04 | MHC.CM.PN ---
EMR REVIEWED, PT W/HEART FAILURE AND AFIB W/RVR, PE HOSPITALIST PLAN TO CHANGE IV LASIX TO PO TOMORROW, NO PLAN FOR D/C AT THIS TIME, PLAN CONT'S TO BE RETURN TP [facility] IN [place], CM HAS REATTEMPTED TO CONTACT [place] W/BUSY SIGNAL. CM WILL CONT TO FOLLOW D/C NEEDS.
[2022-12-06 15:41] VITALS: BP 140/70; PULSE 72; RESP 20; TEMP 36; O2SAT 100
[2022-12-06 16:04] LABS: Glucose, Whole Blood 113 mg/dL (60-115)
[2022-12-06 19:28] VITALS: BP 159/84; PULSE 76; RESP 18; TEMP 36.9; O2SAT 98
[2022-12-06 20:40] LABS: Glucose, Whole Blood 185 mg/dL (60-115)
[2022-12-06] MEDS: Metoprolol Tartrate 25 MG TABLET 75 MG PO (20:43)
[2022-12-06] MEDS: traZODone HCL 100 MG TABLET PO (20:43)
[2022-12-06 23:29] VITALS: BP 128/80; PULSE 61; RESP 16; TEMP 36.9; O2SAT 98
[2022-12-07 03:46] VITALS: BP 125/67; PULSE 64; RESP 18; TEMP 37.1; O2SAT 96
[2022-12-07 07:15] VITALS: BP 131/76; PULSE 69; RESP 20; TEMP 36.8; O2SAT 96
[2022-12-07 07:28] LABS: Glucose, Whole Blood 225 mg/dL (60-115)
[2022-12-07] MEDS: Gabapentin 100 MG CAPSULE 200 MG PO ×3 (07:56→20:52)
[2022-12-07] MEDS: Apixaban 5 MG TABLET PO ×2 (07:57→20:52)
[2022-12-07] MEDS: Furosemide 40 MG TABLET PO (07:57)
[2022-12-07] MEDS: lisinopriL 5 MG TABLET PO (07:57)
[2022-12-07] MEDS: DULoxetine HCl 30 MG CAPSULE.DR PO (07:57)
[2022-12-07] MEDS: Gabapentin 600 MG TABLET PO ×3 (07:57→20:52)
[2022-12-07] MEDS: metFORMIN HCl 1,000 MG TABLET 1000 MG PO ×2 (07:57→16:17)
[2022-12-07] MEDS: Metoprolol Tartrate 25 MG TABLET 75 MG PO ×2 (07:57→20:52)
[2022-12-07] MEDS: Atorvastatin Calcium 40 MG TABLET PO (07:57)
[2022-12-07] MEDS: Acetaminophen 325 MG TABLET 975 MG PO (07:58)
[2022-12-07] MEDS: Insulin Lispro 100 UNIT/ML 3 ML VIAL SUBCUT ×3 (07:58→20:49)
[2022-12-07] MEDS: Aspirin Enteric Coated 81 MG TABLET.DR PO (07:58)
[2022-12-07] MEDS: Insulin Glargine,Hum.rec.anlog 100 UNIT/ML 10 ML VIAL 42 UNIT SUBCUT (07:59)
[2022-12-07] MEDS: 0.9 % Sodium Chloride Flush 3 ML SYRINGE IVFLUSH ×3 (07:59→20:52)
[2022-12-07] MEDS: Nicotine 21 MG PATCH.TD24 TRANSDERMA (07:59)
--- NOTE | 2022-12-07 08:54 | MHC.CM.PN ---
Addendum entered by Nani Ceja RN 12/07/22 12:58: [facility] UNABLE TO ACCOMMODATE, [employer] WILL PROVIDE SERVICES Addendum entered by Nani Ceja RN 12/07/22 11:43: CM CONTACTED MICHELLE AT [phone] WHO REQUESTED CM CLEAR RETURN BACK TO PROGRAM W/JEY [facility]ICOL[facility] [phone] Addendum entered by Nani Ceaj RN 12/07/22 11:41: [facility] [employer] [facility] [phone] Original Note: ANTIC PT WILL BE MEDICALLY CLEARED FOR DC BACK TO [facility], CM WILL PROVIDE TRANSPORT
--- NOTE | 2022-12-07 10:33 | PM.DS ---
DS: Providers Provider Date of Service: 12/07/22 Date of admission: 11/30/22 00:48 Primary care physician: Gera Braun MD Consults: 11/30/22 00:42 Consult to Cardiology Routine Consulting Provider: [facility] Reason for consultation: CHF Has provider been notified: Yes DS: Diagnosis Discharge Diagnosis (1) Acute on chronic systolic and diastolic heart failure, NYHA class 3: Status: Acute (2) Acute CHF: Status: Acute (3) Peripheral neuropathy: Status: Acute (4) Mood disorder: Status: Acute DS: Summary Hospital Course Hospital Course: Chief Complaint: Dyspnea This is a 62-year-old male with pertinent history of congestive heart failure, unspecified ejection fraction, AFib on anticoagulation, mood disorder, insulin-dependent diabetes mellitus with neuropathy, essential hypertension, mixed hyperlipidemia presents to the emergency department for evaluation of dyspnea.? Patient states he has been having dyspnea for the last 5 days.? It has been progressive and worse with ambulation.? Also complains of orthopnea and PND.? Patient states he stopped taking his Lasix 1 week ago as it made him pee too much.? Does endorse palpitations.? He denies fever, chills, cough, chest discomfort, abdominal pain, changes in urinary or bowel habits. In the emergency department, patient was found to be in AFib with RVR.? He was found to be hypoxemic and placed on supplemental oxygen Hospital course: Patient with known AFIB andn heart failure and not regular with medications and presented with shortness of breath and found to have acute heart failure by clinically, radiographic finding and high BNP, he was also noted to be in AFIB with RVR..He has not been compliant with his meds and was in florid heart failure. Acute on chronic? systolic and diastolic heart failure exacerbation, likely due to AFIB with RVR and non compliance with meds. He was treated with IV Lasis with good effect and ahs diuressed negative 11 liters and clinically feels great leg edema resolved, lungs clear. He is to return to usual home regimen with Lsix 40 daily , Lisinopril 5. Metoprolol to replace Labetalol. Had Echo on 11/30 with EF of 40 Dr. Garcia and Kev followed him while in the hospital and should continue follow him on outpatient. ?AFib with RVR, ? He has been flutuating back and forth with AFIB and sinus rythm, initially required IV cardizem drip to cntrol RVR, he presently in sinus. His labetalol 200 bid is been replaced by Metoprolol 75 bid, presntly HR in 60 sinus, to continue eliquis at 5 bid for stroke prevention. Mood disorder.? Continue home mood stabilizers (Duloxetine) Insulin-dependent mellitus with hyperglycemia.? noted to have fluctuating blood sugars, continue Lantus,? diabetic diet, Metformin and SSI hemoglobin A1c 10.1, average blood sugar around 250, to follow up with PCP and to consdier for insulin hypoglycemia? resolved with no recurrent episode Acute lactic acidosis due to hepatic congestion in the setting of CHF.? No sepsis Elevated transaminases due to hepatic congestion, LFTs trending down, will continue statins and recommend close outpatient follow-up. cardiology concern about use of statins with elevated LFTs Elevated troponin, likely type 2 in the setting of increased demand, no chest pain, echo showed EF 50% with global hypokinesis, being followed by Cardiology? due to noncompliance, homelessness and social issues Cardio recommend medical management with beta blockers , Yobani inhibitors, diuretics and statins. tobacco use disorder continue nicotine patch Time Spent with Patient Time attestation: Total time managing care of this patient today ____ minutes. Discharge coordination time: Greater than 30 minutes Quality: Safe Use of Opioids Does Pt have an Active Cancer Diagnosis on the Problem List?: No Quality: Stroke Does the patient have a stroke diagnosis?: No Physical Exam Vital Signs: Vital Signs: Last Vital Signs Temp 98.3 F 12/07/22 07:15 Pulse 69 12/07/22 07:15 Resp 20 12/07/22 07:15 BP 131/76 12/07/22 07:15 Pulse Ox 96 12/07/22 07:15 O2 Del Method Room Air 12/07/22 07:15 O2 Flow Rate 4 11/30/22 06:35 Oxygen Flow Rate 3 11/29/22 22:58 BMI result Body Mass Index 25.4 Const: Other: General: AO X 3, no acute distress Resp: CTA bilateral CVS: S1,S2,RRR GI: +BS, NT, no distention Skin: No rash Neuro: motor grossly intact Psych: appropriate affect DS: Data Data Completed and Pending Labs on day of discharge: Laboratory Results - last 24 hr 12/06/22 12/06/22 12/06/22 11:14 15:56 20:33 POC Glucose 157 H 113 185 H 12/07/22 07:17 POC Glucose 225 H Discharge Plan Discharge Anticipated Discharge Date/Time: 12/07/22 10:27 Patient Disposition: Home Health Service Discharge Diagnosis: Acute heart failure, AFIB with RVR Referrals: [facility] [Outside] - 1 Day ([facility]) Gera Braun MD [Primary Care Provider] - 1 Week Discharge Medications: New metoprolol tartrate 25 mg Tablet 75 mg PO BID Qty: 60 0RF Protocol: Hold for SBP/HR < HOLD for SBP < : 90 HOLD for HR < : 60 Continued baclofen 5 mg tablet 5 mg PO TID PRN (Reason: Muscle Spasm) furosemide 40 mg tablet 40 mg PO DAILY atorvastatin 40 mg tablet 40 mg PO DAILY aspirin 81 mg tablet,delayed release (DR/EC) 81 mg PO DAILY metformin 1,000 mg tablet 1,000 mg PO BIDWM gabapentin 100 mg capsule 200 mg PO TID albuterol sulfate [Ventolin HFA] 90 mcg/actuation HFA aerosol inhaler 2 puff inhalation Q4H PRN (Reason: Shortness Of Breath Or Wheezing) duloxetine 30 mg capsule,delayed release(DR/EC) 30 mg PO DAILY Eliquis 5 mg tablet 5 mg PO BID lisinopril 5 mg tablet 5 mg PO DAILY insulin aspart U-100 [Novolog U-100 Insulin aspart] 100 unit/mL solution See Protocol subcut QIDACHS Protocol: Insulin Correction Scale Less than or equal to 110 ---- Give (units): 0 111 to 150 Give (units): 0 151 to 200 Give (units): 2 201 to 250 Give (units): 4 251 to 300 Give (units): 6 301 to 350 Give (units): 8 Greater than 350 Give (units): 10 Call MD if Blood Glucose > : 350 insulin glargine [Lantus Solostar U-100 Insulin] 100 unit/mL (3 mL) insulin pen 42 unit subcut DAILY gabapentin 600 mg tablet 600 mg PO TID acetaminophen 500 mg tablet 1,000 mg PO TID PRN (Reason: PAIN) Discontinued labetalol 200 mg tablet 200 mg PO BID Discharge Orders: Discharge Order (Routine); Ordered 12/07/22 Ordered By: Jona Cazares Diet: Diabetic diet Activity on Discharge: As tolerated Stand Alone Forms: Patient Portal Discharge page Care Plan Goals: Full recovery from atrial fibriation and heart failure Health Concerns: chronic heart failure Atrial fibrilation Plan of Treatment: Take all your medication as redommended, only change made to your medication is that we stopped Labetalol and replaced with Metoprolol Follow up with you Doctor in aweek to 2, follow up with you heart doctor in a week to 2, do no skip any of your medicaions Assessment: see above
[2022-12-07 11:18] VITALS: BP 131/63; PULSE 66; RESP 20; TEMP 36.4; O2SAT 99
[2022-12-07 11:29] LABS: Glucose, Whole Blood 200 mg/dL (60-115)
--- NOTE | 2022-12-07 11:49 | W.MHC.F2F ---
Service Date Service Date: 12/07/22 Encounter Date of encounter: 12/07/22 Reasons for Services Signs and symptoms assessed: shortness of breath due to heart failure Reason for longterm: medication management and medication treatment Homebound: Leaving the home is medically contraindicated at this time without the asist of a device and/or another person due th the listed conditions above and below. Reason homebound: fall risk related to blood pressure changes and weakness related to hospital stay Homebound supporting statement: Homebound due to shortness of breath with minimal exertion, related to heart failure and therefore needs the assitance of another person Certification: Based on the above findings, I certify that this patient is confined to the home and needs intermittent longterm care, physical therapy and/or speech therapy, or continues to need occupational therapy. The patient is under my care, and I have initiated the establishment of the plan of care. The patient will be followed by a physician who will periodically review the plan of care. Time Spent With Patient Time: Total time managing care of this patient today ____ minutes.
--- NOTE | 2022-12-07 14:31 | MHC.CM.PN ---
Addendum entered by Nani Ceja RN 12/07/22 16:18: PER [facility] STAFF PLEASE CALL DANY [phone] FOR SATURDAY D/C. Addendum entered by Nani Ceja RN 12/07/22 15:51: PER HOSPITALIST PT IN AFIB AND WILL NEED CARDIOLOGY INPUT, STEPHAN ATTEMPTED TO CONTACT MICHELLE AT [facility] TO CANCEL D/C AND RIDE HOWEVER NO ANSWER, MESSAGE LEFT. Original Note: CM RECEIVED CALL FROM [facility]'S INFORMATION AND DATA ARCHITECT ANALYST, MICHELLE REPORTED STAFF CAN PICK PT UP AT 3:30PM, PT DOES NOT NEED TO BE TRANSPORTED.
[2022-12-07 15:13] VITALS: BP 161/97; PULSE 119; RESP 20; TEMP 36.4; O2SAT 97
[2022-12-07 16:01] LABS: Glucose, Whole Blood 113 mg/dL (60-115)
[2022-12-07 19:09] VITALS: BP 162/92; PULSE 76; RESP 20; TEMP 36.3; O2SAT 98
[2022-12-07 19:45] LABS: Glucose, Whole Blood 175 mg/dL (60-115)
[2022-12-07] MEDS: Melatonin 3 MG TABLET 6 MG PO (20:55)
[2022-12-07] MEDS: traZODone HCL 100 MG TABLET PO (20:55)
[2022-12-07] MEDS: Acetaminophen 325 MG TABLET 650 MG PO (20:58)
[2022-12-07 23:31] VITALS: BP 118/63; PULSE 60; RESP 18; TEMP 36.5; O2SAT 97
[2022-12-08 03:20] VITALS: BP 117/72; PULSE 61; RESP 18; TEMP 36; O2SAT 100
[2022-12-08 07:16] VITALS: BP 126/71; PULSE 65; RESP 20; TEMP 36.1; O2SAT 97
[2022-12-08] MEDS: Insulin Lispro 100 UNIT/ML 3 ML VIAL SUBCUT ×2 (07:51→11:46)
[2022-12-08] MEDS: Atorvastatin Calcium 40 MG TABLET PO (07:52)
[2022-12-08] MEDS: Gabapentin 600 MG TABLET PO ×2 (07:52→14:58)
[2022-12-08] MEDS: Insulin Glargine,Hum.rec.anlog 100 UNIT/ML 10 ML VIAL 42 UNIT SUBCUT (07:52)
[2022-12-08] MEDS: Metoprolol Tartrate 25 MG TABLET 75 MG PO (07:52)
[2022-12-08] MEDS: Apixaban 5 MG TABLET PO (07:53)
[2022-12-08] MEDS: DULoxetine HCl 30 MG CAPSULE.DR PO (07:53)
[2022-12-08] MEDS: Furosemide 40 MG TABLET PO (07:53)
[2022-12-08] MEDS: Gabapentin 100 MG CAPSULE 200 MG PO ×2 (07:53→14:58)
[2022-12-08] MEDS: metFORMIN HCl 1,000 MG TABLET 1000 MG PO (07:53)
[2022-12-08] MEDS: Aspirin Enteric Coated 81 MG TABLET.DR PO (07:53)
[2022-12-08] MEDS: lisinopriL 5 MG TABLET PO (07:53)
[2022-12-08] MEDS: Nicotine 21 MG PATCH.TD24 TRANSDERMA (07:55)
[2022-12-08] MEDS: 0.9 % Sodium Chloride Flush 3 ML SYRINGE IVFLUSH (08:04)
--- NOTE | 2022-12-08 11:08 | MHC.CM.PN ---
inquired from this RNCM if Pt could return to his home today; this RNCM called both Mackenzie (android programmer) and Shahrzad (RN) to inquire RE Pt's return for today. Both calls ended in voice mail. Pending return calls for Pt's D/C. notified. CM to follow.
[2022-12-08 11:10] VITALS: BP 155/80; PULSE 68; RESP 20; TEMP 36.4; O2SAT 98
--- NOTE | 2022-12-08 12:33 | MHC.CM.PN ---
Sheryl cordoba of manager program management. She is very concerned if he can be managed in a non-medical facility (house is non-medical). She has asked that MD give her a call to discuss Pt's medical needs and F/U post D/C. This CM did confirm that the [facility] does ensure medication administration and F/U appt needs are met for Pts, but there is no other medical care given. Mackenzie did confirm that [facility]NA is permitted to come in and perform VNA duties to their residents should it be required. Messaged MD to call this CM to discuss conversation with Mackenzie, and then request that he give her a call. CM to follow.
--- NOTE | 2022-12-08 14:32 | MHC.CM.PN ---
Confirmed with Mackenzie Pt can return today. Communicated w/nurse for D/C time for 4pm. Will set lyft for 4pm.
--- NOTE | 2022-12-08 15:28 | MHC.CM.PN ---
Lyft scheduled for clam picker for Pt for within 25 minutes, per lyft site. Nurse notified. Special instructions for armored car guard and driver documented in lyft system: Under no circumstances are there to be any stops between clam picker address and final destination; request per senior java programmer.
--- NOTE | 2022-12-08 15:47 | MHC.CM.PN ---
Mackenzie Jules (didactic program in dietetics director) just called requesting this RNCM cancel lyft transport. She is having staff member (Elvi) come to pick him up at the front entrance presently. Lyft canceled per request. Nurse notified via [facility] (who is currently with Pt at front hospital entrance).
== END 2022-12-08 16:08 | disposition home health service (06) | DRG 291 ==
LOC: HO.ED 11-30 00:36 → HO.EDOVER 11-30 00:52 → HO.IMC 11-30 15:05
PROVIDERS: Hospitalist; Internal Medicine; Admitting Provider Student in an Organized Health Care Education/Training Program; Emergency Provider Emergency Medicine; PCP Internal Medicine; Visit Provider Hospitalist
DX: I11.0 Hypertensive heart disease with heart failure (principal); I50.43 Acute on chronic combined systolic (congestive) and diastolic (congestive) heart failure; E87.21 Acute metabolic acidosis; I48.20 Chronic atrial fibrillation, unspecified; I24.8 Other forms of acute ischemic heart disease; E11.42 Type 2 diabetes mellitus with diabetic polyneuropathy; E11.65 Type 2 diabetes mellitus with hyperglycemia; K76.1 Chronic passive congestion of liver; Z91.148 Patient's other noncompliance with medication regimen for other reason; F17.210 Nicotine dependence, cigarettes, uncomplicated; E11.649 Type 2 diabetes mellitus with hypoglycemia without coma; E78.2 Mixed hyperlipidemia; Z71.6 Tobacco abuse counseling; Z59.02 Unsheltered homelessness; Z79.4 Long term (current) use of insulin; Z79.01 Long term (current) use of anticoagulants; Z79.82 Long term (current) use of aspirin; Z79.899 Other long term (current) drug therapy
CPT/HCPCS: 36415; 71045; 80048; 80053; 80076; 81001; 82947; 83036; 83605; 83880; 84443; 84484; 85025; 85610; 87040; 93005; 93306; 93356; 99285; J1160; J1940; J2405; Q9957

== ENCOUNTER 2023-01-01 09:07 | Outpatient (AMB) | payer OTHER, SELFPAY ==
--- NOTE | 2023-01-01 10:17 | AM.OFFWIN_ITS ---
Intake Vital Signs 01/01/23 10:20 BP 120/80 Blood Pressure Location Rt brachial Position Sitting Pulse 90 Pulse Source Pulse Oximeter Temp 98 F Temp Source Temporal Artery Scan Pulse Oximetry (%) 97 Oxygen Delivery Method Room Air Intake Visit Reasons: LIBRARY INFORMATION TECHNICIAN, Cough, Flu? Intake Note: Patient here for mild cough for about a week, he has complaints of bodyaches, loss of taste and smell,headaches, fatigue. Patient Tobacco Use Status: Current someday Tobacco user Allergies No Known Allergies [No Known Allergies*] Allergy (Unverified 01/02/23 06:00) Medication List - Last Reconciled 01/01/23 by Josh Almendarez MD acetaminophen 1,000 mg PO TID PRN albuterol sulfate 90 mcg/actuation (Ventolin HFA) 2 puffs inhalation Q4H PRN apixaban (Eliquis) 5 mg PO BID aspirin 81 mg PO DAILY atorvastatin 40 mg PO DAILY baclofen 5 mg PO TID PRN blood sugar diagnostic ([employer] Verio test strips) Test blood sugar 3 times per day blood-glucose meter ([employer] Verio Flex Start kit) As directed duloxetine 30 mg PO DAILY furosemide 40 mg PO DAILY gabapentin 200 mg PO TID gabapentin 600 mg PO TID insulin aspart U-100 (Novolog U-100 Insulin aspart) See Protocol sliding scale doses subcut QIDACHS insulin glargine (Lantus Solostar U-100 Insulin) 42 units subcut DAILY lancets (1st Tier Unilet ComforTouch Lancet) As directed lancets (OneTouch Delica Plus Lancet) test blood sugar 3 times a day lisinopril 5 mg PO DAILY metformin 1,000 mg PO BIDWM metoprolol tartrate 75 mg See Protocol PO BID pen needle, diabetic (Ultracare Pen Needle) As directed Do you need a note to return to daycare/school/sports/work: No HPI LIBRARY INFORMATION TECHNICIAN, Cough, Flu? HPI Details Patient presents for a sick visit. Reporting symptoms of sinus congestion, sore throat and difficulty swallowing. Low-grade fever. No family member is sick. No recent travel. Patient reports symptoms of malaise and fatigue. [facility] Medical History Atrial fibrillation with RVR Congestive heart failure Insulin dependent type 2 diabetes mellitus Mood disorder Peripheral neuropathy Social History Household Members: None Housing: Homeless Do you presently have visiting nurse or other home services: No Patient Tobacco Use Status: Current someday Tobacco user Tobacco use type: Cigarette Cigarette Packs Per Day: 1 Cigarettes Per Day: 20.0 Second Hand Smoke Exposure: No Substance Use Type: Crack/Cocaine Advance Directives Date on File: 11/30/22 service: No Physical Exam Vital Signs: Last Vital Signs Temp 98 F 01/01/23 10:20 Pulse 90 01/01/23 10:20 BP 120/80 01/01/23 10:20 Pulse Ox 97 01/01/23 10:20 Oxygen Delivery Method Room Air 01/01/23 10:20 Const General: cooperative and healthy appearing Nutritional Appearance: well nourished Orientation/consciousness: patient oriented x3 Limitations: no limitations HEENT Head: Yes normal to inspection Eyes General: appearance normal, both eyes and all related structures Neck Neck: Yes normal visual inspection Chest Chest palpation & inspection: normal palpation of entire chest wall Resp Effort & Inspection: normal respiratory effort Neuro General: patient oriented x3 Results AMB Random Glucose (hemocue) AMB Random Glucose (hemocue) 361 mg/dL Last Edit by SUDHA Elliott on 01/01/23 10:47 Results Reviewed Results Reviewed: Laboratory Last Values Random Glu (Clinic) 361 mg/dL 01/01/23 10:46 Assessment & Plan Assessment & Plan (1) Insulin dependent type 2 diabetes mellitus: Code(s): E11.9 - Type 2 diabetes mellitus without complications; Z79.4 - FPC (current) use of insulin Plan: Random blood sugar was greater than 200. Part of his symptoms can be attributed to hyperglycemia. I instructed him to increase his Lantus insulin by 10 units. (2) Upper respiratory tract infection: Code(s): J06.9 - Acute upper respiratory infection, unspecified Plan: Antibiotics ordered. Increase fluid intake. Tylenol for aches and pains. If symptoms worsen, follow-up here for a recheck. Orders: Orders AMB Random Glucose (hemocue) 01/01/23 E11.9 - Type 2 diabetes mellitus without complications, Z79.4 - resident physician (current) use of insulin Medications: New azithromycin take 500 mg today (day 1), then 250 mg for 4 days (days 2-5) PO 6 tabs 0RF benzonatate 100 mg PO TID 30 caps 0RF Coding Level of Care Code Est Pt Level 4 (28397) Diagnoses Insulin dependent type 2 diabetes mellitus E11.9; Z79.4 Upper respiratory tract infection J06.9
[2023-01-01 10:20] VITALS: BP 120/80; PULSE 90; TEMP 36.6; O2SAT 97
== END 2023-01-01 13:36 | disposition home or self-care (01) ==
PROVIDERS: PCP Internal Medicine; Visit Provider Internal Medicine
DX: E11.9 Type 2 diabetes mellitus without complications (principal); Z79.4 Long term (current) use of insulin; J06.9 Acute upper respiratory infection, unspecified
CPT/HCPCS: 82948; 99214

== ENCOUNTER 2023-01-03 09:57 | Inpatient (IN) | payer OTHER, SELFPAY ==
--- NOTE | ~2023-01-03 | XR_ITS ---
EXAMINATION: XR CHEST CLINICAL INFORMATION: Chest radiograph dated 11/29/2022. COMPARISON: 11/29/2022 chest radiograph. TECHNIQUE: Frontal view of the chest was obtained. FINDINGS: Small bilateral pleural effusions, left greater than right are seen. The heart and mediastinal structures are unremarkable. XR/XR chest 1V IMPRESSION: Small bilateral pleural effusions, left greater than right. The left pleural effusion appears mildly increased in the right pleural effusion is decreased. Interval resolution of bilateral patchy infiltrates.
[2023-01-03 09:59] VITALS: BP 136/77; PULSE 84; RESP 20; TEMP 36.3; O2SAT 99; BMI 25.8
--- NOTE | 2023-01-03 10:03 | ECG_ITS ---
Test Reason : CHEST PAIN/SHORT OF BREATH Blood Pressure : / mmHG Vent. Rate : 080 BPM Atrial Rate : 080 BPM P-R Int : 150 ms QRS Dur : 080 ms QT Int : 398 ms P-R-T Axes : 039 060 105 degrees QTc Int : 459 ms Normal sinus rhythm Possible Left atrial enlargement Nonspecific T wave abnormality Abnormal ECG When compared with ECG of 03-DEC-2022 11:26, Significant changes have occurred Referred By: Generic ED Physician Electronically Signed By:FRANSISCA PÉREZ MD
[2023-01-03 10:32] LABS: MANUAL DIFF FLAG NO
[2023-01-03 10:34] LABS: Basophils Percent Auto 0.2 % (0-2); Eosinophils Absolute Auto 0.2 X10*3/uL (0.0-0.4); Eosinophils Percent Auto 2.4 % (0-4); Hematocrit 35.1 % (42.0-52.0); Hemoglobin 11.4 g/dl (14.0-18.0); Imm Gran Abs Auto 0.06 X10*3/uL (0.00-0.03); Imm Gran Pct Auto 0.7 % (0.0-0.4); Lymphocytes Absolute Auto 1.5 X10*3/uL (1.2-4.9); Lymphocytes Percent Auto 19.1 % (20-40); Mean Corpuscular HGB Conc 32.5 g/dl (31.0-36.0); Mean Corpuscular Hemoglobin 27.5 pg (27.0-33.0); Mean Corpuscular Volume 84.8 fL (80.0-98.0); Mean Platelet Volume 8.7 fL (9.4-12.4); Monocytes Absolute Auto 0.6 X10*3/uL (0.1-1.2); Monocytes Percent Auto 7.3 % (2-11); Neutrophils Absolute Auto 5.7 x10*3/uL (2.0-8.3); Neutrophils Percent Auto 70.3 % (45-73); Platelet Count 226 X10*3/uL (160-400); Red Blood Count 4.14 X10*6/uL (4.60-5.80); Red Cell Distribution Width 14.3 % (11.0-16.0); White Blood Count 8.1 X10*3/uL (4.8-10.8)
[2023-01-03 10:50] LABS: Anion Gap 16 (12-20); Blood Urea Nitrogen 20 mg/dL (9-16); Calcium 9.7 mg/dL (8.4-10.2); Carbon Dioxide 20 mmol/L (22-29); Chloride 104 mmol/L (96-108); Creatinine Clr Calc Pharmacy 84.3; Estimated Glomerular Filt Rate > 60; Glucose Random 226 mg/dL (60-115); Potassium 4.4 mmol/L (3.3-5.1); Sodium 136 mmol/L (135-145)
[2023-01-03 11:06] LABS: Troponin-I High Sensitivity 112.8 ng/L (<3.5-35.0)
[2023-01-03 11:34] VITALS: BP 138/81; PULSE 84; RESP 15; TEMP 37.1; O2SAT 99
--- NOTE | 2023-01-03 11:37 | ED_ITS ---
HPI - SOB/Dyspnea General Chief Complaint: Dyspnea Stated Complaint: sob Time Seen by Provider: 01/03/23 11:10 Source: patient Mode of arrival: ambulatory Limitations: no limitations History of Present Illness HPI Narrative: 62-year-old male with pertinent history of congestive heart failure w/ EF 30- 40%, AFib on eliquis, mood disorder, insulin-dependent diabetes mellitus with neuropathy, essential hypertension, mixed hyperlipidemia, COPD (former tobacco smoker), former alcohol abuse here with complaints of one week of FRAZIER, orthopnea, productive cough with white sputum, chest tightness. No fevers, chills. +bilateral leg swelling. Has not taken his lasix >1 month. Currently living in a sober house. Also complaining of left lower back pain for the last 2 weeks with no known injury or trauma. Pain radiates down the left leg into the left knee. He denies any numbness in the groin. Denies any bowel or bladder incontinence. No fevers or chills. Patient reports history of back pain. Related Data Home Medications Medication Instructions Recorded Confirmed acetaminophen 500 mg tablet 500 mg PO TID PRN PAIN 11/30/22 01/03/23 albuterol sulfate 90 mcg/actuation 2 puff inhalation Q4H PRN 11/30/22 01/03/23 aerosol inhaler (Ventolin HFA) Shortness Of Breath Or Wheezing apixaban 5 mg tablet (Eliquis) 5 mg PO BID 11/30/22 01/03/23 aspirin 81 mg tablet,delayed 81 mg PO DAILY 11/30/22 01/03/23 release atorvastatin 40 mg tablet 40 mg PO DAILY 11/30/22 01/03/23 baclofen 5 mg tablet 5 mg PO TID PRN Muscle Spasm 11/30/22 01/03/23 duloxetine 30 mg capsule,delayed 30 mg PO DAILY 11/30/22 01/03/23 release furosemide 40 mg tablet 40 mg PO DAILY 11/30/22 01/03/23 gabapentin 100 mg capsule 200 mg PO TID 11/30/22 01/03/23 gabapentin 600 mg tablet 600 mg PO TID 11/30/22 01/03/23 insulin aspart U-100 100 unit/mL See Protocol subcut QIDACHS 11/30/22 01/03/23 subcutaneous solution (Novolog U-100 Insulin aspart) insulin glargine 100 unit/mL (3 52 unit subcut DAILY 11/30/22 01/03/23 mL) subcutaneous pen (Lantus Solostar U-100 Insulin) lisinopril 5 mg tablet 5 mg PO DAILY 11/30/22 01/03/23 metformin 1,000 mg tablet 1,000 mg PO BIDWM 11/30/22 01/03/23 lancets 30 gauge (1st Tier Unilet 12/10/22 01/01/23 ComforTouch Lancet) pen needle, diabetic 31 gauge x #1,200 ea 12/10/22 01/01/23/ (Ultracare Pen Needle) benzonatate 100 mg capsule 100 mg PO TID PRN Cough 01/03/23 01/03/23 trazodone 50 mg tablet 150 mg PO BEDTIME 01/03/23 01/03/23 Previous Rx's Medication Instructions Recorded metoprolol tartrate 25 mg tablet 75 mg PO BID #60 tabs 12/07/22 blood sugar diagnostic (OneTouch #100 ea 12/17/22 Verio test strips) blood-glucose meter (OneTouch #1 ea 12/17/22 Verio Flex Start kit) lancets 33 gauge (OneTouch Delica #100 ea 12/17/22 Plus Lancet) azithromycin 250 mg tablet See Rx Instructions PO .COMPLEX #6 01/01/23 tabs Allergies Allergy/AdvReac Type Severity Reaction Status Date / Time No Known Allergies Allergy Unverified 01/02/23 06:00 [No Known Allergies*] Review of Systems Review of Systems: Yes all other systems are reviewed and are negative Constitutional: Constitutional: Reports no additional constitutional complaints, Denies body ache(s), Denies chills, Denies fever(s), Denies headache(s) and Denies weakness Eyes: Eyes: Reports no additional eye complaints and Denies change in vision ENT: Reports system reviewed and no additional complaints, except as documented, Denies dizziness, Denies headache(s), Denies nasal congestion, Denies nasal discharge and Denies neck pain Cardiovascular: Cardiovascular: Reports no additional cardiovascular complaints, Reports chest pain, Reports leg edema and Reports dyspnea Respiratory: Respiratory: Reports no additional respiratory complaints, Reports cough and Reports dyspnea Gastrointestinal: Gastrointestinal: Reports no additional gastrointestinal complaints, Denies abdominal pain, Denies diarrhea, Denies nausea and Denies vomiting Genitourinary: Genitourinary: Denies urinary incontinence Musculoskeletal: Musculoskeletal: Reports no additional musculoskeletal complaints, Denies back pain, Denies arthralgias, Denies joint swelling, Denies neck pain, Denies numbness and Denies tingling Integumentary/Breasts: Skin/Breast: Reports system reviewed and no additional complaints, except as docu and Denies rash Neurologic: Reports system reviewed and no additional complaints, except as documented, Denies Abnormal speech present, Denies dizziness, Denies headache(s), Denies numbness, Denies tingling and Denies weakness FOR[facility]LY [facility], [facility] Past Medical History Attestation statement: The following information was validated with the patient. Source: old records reviewed and nursing notes reviewed Medical History Atrial fibrillation with RVR Congestive heart failure Insulin dependent type 2 diabetes mellitus Mood disorder Peripheral neuropathy Social History Social History Household Members: None Housing: Homeless Do you presently have visiting nurse or other home services: No Alcohol intake: never Patient Tobacco Use Status: Current someday Tobacco user Tobacco use type: Cigarette Cigarette Packs Per Day: 1 Cigarettes Per Day: 20.0 Smoked in Last 30 Days: No Second Hand Smoke Exposure: No Use of substances other than those prescribed or required for medical reasons: No Substance Use Type: Crack/Cocaine Advance Directives: Yes Advance Directives on File: Yes Advance Directives Date on File: 11/30/22 service: No Physical Exam Vital Signs: Vital Signs: Last Vital Signs Temp 98.4 F 01/03/23 15:26 Pulse 90 01/03/23 15:26 Resp 16 01/03/23 15:26 BP 148/82 H 01/03/23 15:26 Pulse Ox 95 01/03/23 15:26 O2 Del Method Room Air 01/03/23 15:26 BMI result Body Mass Index 25.8 Const: General: cooperative, healthy appearing, comfortable and no acute distress Orientation/consciousness: patient oriented x3 Limitations: no limitations HEENT: Head: Yes normal to inspection Ears: hearing grossly normal bilaterally General nose exam: Normal external nose present Face and sinus: Yes normal facial exam Mouth: Normal oral and palatal mucosa present Throat: Yes posterior oropharynx normal Eyes: General: appearance normal, both eyes and all related structures Pupils: Equal, round and reactive pupils present Neck: Neck: Yes normal visual inspection Chest: Chest palpation & inspection: normal inspection of the chest Resp: Other: Diminished breath sounds Effort & Inspection: normal respiratory effort Cardio: Rate: regular rate Rhythm: regular rhythm Peripheral pulses: Peripheral pulses 2+ throughout GI: Inspection: Yes normal to inspection Palpation (GI): Soft to palpation and nontender Auscultation: normal bowel sounds Back/Spine/Pelvis: Other: +TTP to left lumbar soft tissue with no midline tenderness over the spine. Normal straight leg raise Thoracic/Lumbar Spine: thoracic and lumbar spine normal to inspection Skin: General skin exam: no rashes or lesions noted Neuro: General: patient oriented x3, no focal motor deficits and normal sensation to monofilament Cranial nerves: Yes Equal, round and reactive pupils present Cognition (Neuro): normal cognition Speech: No Abnormal speech present Gait exam (Neuro): Normal gait present Motor exam (neuro): 5/5 motor strength present throughout Sensory Exam: Normal double simultaneous stimulation for sensation Deep tendon reflexes (DTR's): Right patellar reflex intensity grade: 2+ and Left patellar reflex intensity grade: 2+ Extrem: Other: There is 1 to 2+ pitting edema of the lower extremities bilateral General: Yes normal to inspection Course Course Course Narrative: No delta change in troponin to suggest ACS. Symptoms likely secondary to CHF. Patient ambulated short distance with pulse oximeter 86% and tachypnea. Plan for admission. Medications Administered Discontinued Medications Generic Name Dose Route Start Last Admin Trade Name Freq PRN Reason Stop Dose Admin Furosemide 40 mg 01/03/23 11:41 01/03/23 11:54 Furosemide 40 Mg/4 Ml Vial IVPUSH 01/03/23 11:42 40 mg STAT STA Administration Protocol Medical Decision Making Medical Decision Making [facility] Narrative: this is a 62-year-old male who comes from a sober living home with a history of congestive heart failure who is been off of his Lasix for more than 1 month who presents to the ER with complaints of orthopnea, dyspnea on exertion, productive cough with white sputum, chest tightness and bilateral leg swelling for the last 1 week. On exam patient has stable vital signs. He has diminished breath sounds. He has bilateral lower extremity pitting edema. Will need labs, EKG, chest x-ray Also left lumbar soft tissue tenderness with no midline tenderness/step offs or deformities. Normal neuro. Likely MS Differential Diagnosis Differential Diagnoses: The differential diagnosis associated with the presentation includes CHF exacerbation ACS Low concern for PE as patient is med compliant Eliquis Pneumonia Admission/Observation Consideration of admission/observation: Escalation of care including admission/observation considered CHF exacerbation with hypoxia necesitating admission Consult Healthcare Provider Management of the patient was discussed with: Hospitalist Spoke to hospitalist who accepted admission. Lab Data MDM Lab Attestation statement: I reviewed the patient's lab results. 01/03/23 10:29 01/03/23 10:29 Labs: Lab Results 01/03/23 01/03/23 01/03/23 Range/Units 10:29 10:29 10:29 WBC 8.1 (4.8-10.8) X10*3/uL RBC 4.14 L (4.60-5.80) X10*6/uL Hgb 11.4 L (14.0-18.0) g/dl Hct 35.1 L (42.0-52.0) % MCV 84.8 (80.0-98.0) fL MCH 27.5 (27.0-33.0) pg MCHC 32.5 (31.0-36.0) g/dl RDW 14.3 (11.0-16.0) % Plt Count 226 (160-400) X10*3/uL MPV 8.7 L (9.4-12.4) fL Immature Gran % (Auto) 0.7 H (0.0-0.4) % Neut % (Auto) 70.3 (45-73) % Lymph % (Auto) 19.1 L (20-40) % Meagher % (Auto) 7.3 (2-11) % Eos % (Auto) 2.4 (0-4) % Baso % (Auto) 0.2 (0-2) % Lymph # (Auto) 1.5 (1.2-4.9) X10*3/uL Meagher # (Auto) 0.6 (0.1-1.2) X10*3/uL Eos # (Auto) 0.2 (0.0-0.4) X10*3/uL Baso # (Auto) 0.0 (0.0-0.2) X10*3/uL Abs Immat Gran (auto) 0.06 H (0.00-0.03) X10*3/uL Absolute Neuts (auto) 5.7 (2.0-8.3) x10*3/uL Absolute Nucleated RBC 0.000 (0.0-0.012) X10*3/uL Nucleated RBC % (auto) 0.0 (0.0-0.2) /100WBC Sodium 136 (135-145) mmol/L Potassium 4.4 (3.3-5.1) mmol/L Chloride 104 (96-108) mmol/L Carbon Dioxide 20 L (22-29) mmol/L Anion Gap 16 (12-20) BUN 20 H (9-16) mg/dL Creatinine 0.84 (0.5-1.4) mg/dL Estim Creat Clear Calc 84.3 Estimated GFR > 60 Random Glucose 226 H (60-115) mg/dL Calcium 9.7 (8.4-10.2) mg/dL Total Bilirubin 0.9 (0.0-1.0) mg/dL Direct Bilirubin 0.4 (0.0-0.5) mg/dL AST 30 (5-37) U/L ALT 38 (0-40) U/L Alkaline Phosphatase 101 (39-117) U/L Troponin I High Sens 112.8 H* D (<3.5-35.0) ng/L B-Natriuretic Peptide (<100) pg/mL Total Protein 6.5 (6.5-8.0) g/dL Albumin 3.9 (3.5-5.0) g/dL 01/03/23 01/03/23 Range/Units 10:29 13:30 WBC (4.8-10.8) X10*3/uL RBC (4.60-5.80) X10*6/uL Hgb (14.0-18.0) g/dl Hct (42.0-52.0) % MCV (80.0-98.0) fL MCH (27.0-33.0) pg MCHC (31.0-36.0) g/dl RDW (11.0-16.0) % Plt Count (160-400) X10*3/uL MPV (9.4-12.4) fL Immature Gran % (Auto) (0.0-0.4) % Neut % (Auto) (45-73) % Lymph % (Auto) (20-40) % Meagher % (Auto) (2-11) % Eos % (Auto) (0-4) % Baso % (Auto) (0-2) % Lymph # (Auto) (1.2-4.9) X10*3/uL Meagher # (Auto) (0.1-1.2) X10*3/uL Eos # (Auto) (0.0-0.4) X10*3/uL Baso # (Auto) (0.0-0.2) X10*3/uL Abs Immat Gran (auto) (0.00-0.03) X10*3/uL Absolute Neuts (auto) (2.0-8.3) x10*3/uL Absolute Nucleated RBC (0.0-0.012) X10*3/uL Nucleated RBC % (auto) (0.0-0.2) /100WBC Sodium (135-145) mmol/L Potassium (3.3-5.1) mmol/L Chloride (96-108) mmol/L Carbon Dioxide (22-29) mmol/L Anion Gap (12-20) BUN (9-16) mg/dL Creatinine (0.5-1.4) mg/dL Estim Creat Clear Calc Estimated GFR Random Glucose (60-115) mg/dL Calcium (8.4-10.2) mg/dL Total Bilirubin (0.0-1.0) mg/dL Direct Bilirubin (0.0-0.5) mg/dL AST (5-37) U/L ALT (0-40) U/L Alkaline Phosphatase (39-117) U/L Troponin I High Sens 132.5 H* (<3.5-35.0) ng/L B-Natriuretic Peptide 800 H (<100) pg/mL Total Protein (6.5-8.0) g/dL Albumin (3.5-5.0) g/dL Independent Interpretation I performed an independent interpretation of an: EKG and Plain X-Ray Interpretation: I in pulling be the EKG which shows normal sinus rhythm with a rate 80, normal SC, normal QRS, normal QT I Independently reviewed the chest x-ray and agree with the radiology report Radiology Impression Discussion of test interpretation with radiology: I have reviewed the radiologist's reading. Radiologist Impression: [address] [id number] XRay Report Signed Patient: Isaias Greco MR#: [id number] : 1960 Acct:[id number] Age/Sex: 62 / M ADM Date: 01/03/23 Loc: .ED Attending Dr: Ordering Physician: Generic ED Physician Date of Service: 01/03/23 Procedure(s): XR chest 1V Accession Number(s): [id number] cc: Generic ED Physician~ EXAMINATION: XR CHEST CLINICAL INFORMATION: Chest radiograph dated 11/29/2022. COMPARISON: 11/29/2022 chest radiograph. TECHNIQUE: Frontal view of the chest was obtained. FINDINGS: Small bilateral pleural effusions, left greater than right are seen. The heart and mediastinal structures are unremarkable. XR/XR chest 1V IMPRESSION: Small bilateral pleural effusions, left greater than right. The left pleural effusion appears mildly increased in the right pleural effusion is decreased. Interval resolution of bilateral patchy infiltrates. Discharge Plan Discharge Clinical Impression: Congestive heart failure Patient Disposition: Admitted As Inpatient
[2023-01-03] MEDS: Furosemide 40 MG/4 ML VIAL IVPUSH ×2 (11:54→19:23)
[2023-01-03 12:02] LABS: Alanine Aminotransferase 38 U/L (0-40); Albumin Level 3.9 g/dL (3.5-5.0); Alkaline Phosphatase 101 U/L (39-117); Aspartate Amino Transferase 30 U/L (5-37); Bilirubin Direct 0.4 mg/dL (0.0-0.5); Bilirubin Total 0.9 mg/dL (0.0-1.0); Total Protein 6.5 g/dL (6.5-8.0)
[2023-01-03 12:09] LABS: B Type Natriuretic Peptide 800 pg/mL (<100)
[2023-01-03 12:38] VITALS: BP 146/80; PULSE 86; RESP 18; TEMP 37.4; O2SAT 98
[2023-01-03 14:11] LABS: Troponin-I High Sensitivity 132.5 ng/L (<3.5-35.0)
--- NOTE | 2023-01-03 14:25 | MHC.EDTECH ---
Ambulated patient with O2 sat on under order of BUSINESS TEST ANALYST. O2 sat went down to 87%. BUSINESS TEST ANALYST aware.
--- NOTE | 2023-01-03 14:35 | PM.IMHP ---
History of Present Illness Date of Service: 01/03/23 Attending physician on admission: Lex Braun Chief Complaint: SOB Pt is a 62-year-old male with a PMH significant for?HFrEF of 40%, paroxysmal AFib on Eliquis, insulin-dependent diabetes type 2 with neuropathy, HTN, HLD, and mood disorder who presents to the ED with?increasing shortness of breath and lower leg edema the past week. Patient was recently admitted to the hospital 1 month prior on 11/30/2022 through 12/07/2022 and treated for acute CHF exacerbation. Patient states that upon discharge he was not prescribed furosemide and has not been taking any ?water pill? since discharge. Has also not followed up with cardiology since discharge. Patient also endorses orthopnea, PND, and dyspnea with exertion, saying that he even gets fatigued eating. The patient also complains of lower back pain radiates down his legs for the past few weeks, especially noticeable when he either bends over or lays on his back. Patient denies falling or trauma to the area. Patient also complains of chills, headache, myalgias, cough occasionally productive of whitish sputum for the past 2 weeks works, has felt better the past 4 days. Patient feels ?chest tightness? with breathing especially with exertion, but denies chest pain/pressure. No nausea, vomiting, abdominal pain. In the ED patient was afebrile but slightly hypertensive at 146/80, satting at 98% on RA. Labs were significant for stable H&H of 11.4/35.1, initial troponin 112.8 with repeat flat at 132.5, and BNP elevated at 800. Electrolytes WNL. Renal function baseline. Hepatic function WNL. CXR showed small bilateral pleural effusions with left greater than right. EKG demonstrated normal sinus rhythm with unspecified T-wave abnormality but no evidence of ST elevations or depressions. Pt was treated with furosemide 40 mg IV. Pt will be admitted to the hospital for treatment and further evaluation of acute CHF exacerbation. Review of Systems Review of Systems: Shortness of breath Dyspnea on exertion Lower leg edema Cough occasionally productive whitish sputum Myalgias Chills Headache Yes all other systems are reviewed and are negative [facility] Medical History Atrial fibrillation with RVR Congestive heart failure Insulin dependent type 2 diabetes mellitus Mood disorder Peripheral neuropathy Social History Household Members: None Housing: Homeless Do you presently have visiting nurse or other home services: No Alcohol intake: never Patient Tobacco Use Status: Current someday Tobacco user Tobacco use type: Cigarette Cigarette Packs Per Day: 1 Cigarettes Per Day: 20.0 Smoked in Last 30 Days: No Second Hand Smoke Exposure: No Use of substances other than those prescribed or required for medical reasons: No Substance Use Type: Crack/Cocaine Advance Directives: Yes Advance Directives on File: Yes Advance Directives Date on File: 11/30/22 service: No Meds Allergies Allergy/AdvReac Type Severity Reaction Status Date / Time No Known Allergies Allergy Unverified 01/02/23 06:00 [No Known Allergies*] Active Medications: Current Medications Pharmacy Consult (Consult Rx Perform Med Rec) 1 each MISCELLANE ONCE PRN PRN Reason: Consult order Home Medications Medication Instructions Recorded Confirmed Last Taken Type acetaminophen 500 mg tablet 500 mg PO TID PRN PAIN 11/30/22 01/03/23 Unknown History albuterol sulfate 90 mcg/actuation 2 puff inhalation Q4H PRN 11/30/22 01/03/23 Unknown History aerosol inhaler (Ventolin HFA) Shortness Of Breath Or Wheezing apixaban 5 mg tablet (Eliquis) 5 mg PO BID 11/30/22 01/03/23 01/03/23 History aspirin 81 mg tablet,delayed 81 mg PO DAILY 11/30/22 01/03/23 01/03/23 History release atorvastatin 40 mg tablet 40 mg PO DAILY 11/30/22 01/03/23 01/03/23 History baclofen 5 mg tablet 5 mg PO TID PRN Muscle Spasm 11/30/22 01/03/23 Unknown History duloxetine 30 mg capsule,delayed 30 mg PO DAILY 11/30/22 01/03/23 01/03/23 History release furosemide 40 mg tablet 40 mg PO DAILY 11/30/22 01/03/23 01/03/23 History gabapentin 100 mg capsule 200 mg PO TID 11/30/22 01/03/23 01/03/23 History gabapentin 600 mg tablet 600 mg PO TID 11/30/22 01/03/23 01/03/23 History insulin aspart U-100 100 unit/mL See Protocol subcut QIDACHS 11/30/22 01/03/23 01/03/23 History subcutaneous solution (Novolog U-100 Insulin aspart) insulin glargine 100 unit/mL (3 52 unit subcut DAILY 11/30/22 01/03/23 01/03/23 History mL) subcutaneous pen (Lantus Solostar U-100 Insulin) lisinopril 5 mg tablet 5 mg PO DAILY 11/30/22 01/03/23 01/03/23 History metformin 1,000 mg tablet 1,000 mg PO BIDWM 11/30/22 01/03/23 01/03/23 History lancets 30 gauge (1st Tier Unilet 12/10/22 01/01/23 Unknown History ComforTouch Lancet) pen needle, diabetic 31 gauge x #1,200 ea 12/10/22 01/01/23 Unknown History 10/23 (Ultracare Pen Needle) benzonatate 100 mg capsule 100 mg PO TID PRN Cough 01/03/23 01/03/23 01/03/23 History trazodone 50 mg tablet 150 mg PO BEDTIME 01/03/23 01/03/23 01/03/23 History Physical Exam Vital Signs and Narrative: Vital Signs: Last Vital Signs Temp 99.3 F 01/03/23 12:38 Pulse 86 01/03/23 12:38 Resp 18 01/03/23 12:38 BP 146/80 H 01/03/23 12:38 Pulse Ox 98 01/03/23 12:38 O2 Del Method Room Air 01/03/23 12:38 BMI result Body Mass Index 25.8 Constitutional: Alert, in no acute distress. Mental Status: Oriented to person, place and time. Eyes: Pupils are equal, round, and reactive to light. Ear, Nose, and Throat: Oropharynx clear, mucous membranes moist. Ears and nose without deformities. Trachea midline. Respiratory: Clear to auscultation bilaterally. No wheezing, rales, or rhonchi. Cardiovascular: S1, S2 regular. No murmurs, rubs, or gallops. Gastrointestinal: Abdomen soft, non-tender, non-distended. Normal bowel sounds. Neurologic: Cranial nerves II-XII are grossly intact bilaterally. No focal neurological deficits. Moves all extremities spontaneously. Skin: No rashes or lesions noted. Musculoskeletal: No cyanosis or clubbing. Extremities: Bilateral 1+pitting lower leg edema. Psychiatric: Normal mood and affect. Results Labs 01/03/23 10:29 01/03/23 10:29 Labs: Laboratory Results - last 24 hr 01/03/23 01/03/23 01/03/23 10:29 10:29 10:29 MCV 84.8 MCH 27.5 MCHC 32.5 RDW 14.3 Plt Count 226 MPV 8.7 L Immature Gran % (Auto) 0.7 H Neut % (Auto) 70.3 Lymph % (Auto) 19.1 L Hartley % (Auto) 7.3 Eos % (Auto) 2.4 Baso % (Auto) 0.2 Lymph # (Auto) 1.5 Hartley # (Auto) 0.6 Eos # (Auto) 0.2 Baso # (Auto) 0.0 Abs Immat Gran (auto) 0.06 H Absolute Neuts (auto) 5.7 Absolute Nucleated RBC 0.000 Nucleated RBC % (auto) 0.0 Anion Gap 16 Estim Creat Clear Calc 84.3 Estimated GFR > 60 Random Glucose 226 H Calcium 9.7 Total Bilirubin 0.9 Direct Bilirubin 0.4 AST 30 ALT 38 Alkaline Phosphatase 101 B-Natriuretic Peptide 800 H Total Protein 6.5 Albumin 3.9 Imaging Radiologist's Impressions: Impressions Chest X-Ray 01/03/23 10:38 IMPRESSION: Small bilateral pleural effusions, left greater than right. The left pleural effusion appears mildly increased in the right pleural effusion is decreased. Interval resolution of bilateral patchy infiltrates. Assessment and Plan (1) Congestive heart failure: Status: Acute Plan Pt is a 62-year-old male with a PMH significant for?HFrEF of 40%, paroxysmal AFib on Eliquis, insulin-dependent diabetes type 2 with neuropathy, HTN, HLD, and mood disorder who presents to the ED with?increasing shortness of breath and lower leg edema the past week. Pt will be admitted to the hospital for treatment and further evaluation of acute CHF exacerbation. Acute HFrEF exacerbation Patient with increasing SOB, orthopnea, bilateral pitting edema, evidence on CXR, elevated BNP Secondary to medication noncompliance, not taking furosemide for the past month Furosemide 40 mg IV b.i.d. Follow lytes, mg, I/O Daily weights, low-salt diet Last echocardiogram 11/30/2022, showed EF of 40% Cardiology consult Monitor on telemetry Elevated troponin Initial troponin 112.8 with repeat flat at 132.[address] elevations or depressions, patient asymptomatic Likely type 2 the setting of increased demand Monitor on telemetry Myalgias, chills Pt has been complaining of flu-like symptoms for 2 weeks, better for past 4 days Will check flu/COVID/RSV panel Back pain Acetaminophen for pain Paroxysmal AFib Patient currently in normal sinus rhythm Continue metoprolol, Eliquis Insulin dependent diabetes type 2 Hold metformin Sliding-scale insulin Lantus Diabetic neuropathy Continue gabapentin HTN Continue home meds HLD Continue statin Mood disorder Continue home meds Full Code Attending:?Dr. Braun DVT Prophylaxis: On Eliquis Pt will require a hospitalization of at least two nights for treatment with IV Lasix of?acute HFrEF exacerbation. Time Spent With Patient Time: Total time managing care of this patient today ____ minutes. Quality Stroke Does the patient have a stroke diagnosis?: No VTE Prior VTE?: No VTE Risk Level:: Medical - moderate - high VTE Device Contraindication: Treatment Not Indicated VTE Drug Contraindication: N/A - Med Ordered
--- NOTE | 2023-01-03 15:10 | PHA.MEDREC ---
Addendum entered by Yennifer Menjivar RPh 01/03/23 15:20: After review of previous discharge summary, patient was suppose to stop labetolol 200 mg BID. Contacted [facility] [phone] to confirm. Waiting for a call back Original Note: Pharmacy Consult ? Medication Reconciliation Pharmacy has completed the medication reconciliation. Patient confirmed medications. Yennifer Menjivar, PharmD
[2023-01-03 15:26] VITALS: BP 148/82; PULSE 90; RESP 16; TEMP 36.9; O2SAT 95
[2023-01-03 16:49] LABS: Influenza A PCR NEGATIVE (Negative); Influenza B PCR NEGATIVE (Negative); Resp Syncy Virus RNA Qual PCR NEGATIVE (Negative); SARS COV2 PCR INHOUSE NEGATIVE (Negative)
[2023-01-03 17:51] LABS: Glucose, Whole Blood 183 mg/dL (60-115)
[2023-01-03 19:24] VITALS: BP 145/94; PULSE 87; RESP 20; TEMP 36.9; O2SAT 99
[2023-01-03 20:51] VITALS: BP 160/70; PULSE 91; RESP 15; TEMP 36.6; O2SAT 95
[2023-01-03 21:03] VITALS: BMI 23.8
[2023-01-03] MEDS: Gabapentin 600 MG TABLET PO (21:18)
[2023-01-03] MEDS: Baclofen 10 MG TABLET 5 MG PO (21:18)
[2023-01-03] MEDS: traZODone HCL 50 MG TABLET 150 MG PO (21:18)
[2023-01-03] MEDS: Gabapentin 100 MG CAPSULE 200 MG PO (21:18)
[2023-01-03] MEDS: 0.9 % Sodium Chloride Flush 3 ML SYRINGE IVFLUSH (21:19)
[2023-01-03] MEDS: Metoprolol Tartrate 25 MG TABLET 75 MG PO (21:19)
[2023-01-03] MEDS: Acetaminophen 325 MG TABLET 650 MG PO (21:19)
[2023-01-03] MEDS: Apixaban 5 MG TABLET PO (21:19)
[2023-01-03] MEDS: Insulin Lispro 100 UNIT/ML 3 ML VIAL SUBCUT (21:20)
[2023-01-03 21:55] LABS: Glucose, Whole Blood 221 mg/dL (60-115)
[2023-01-04] VITALS (7 sets, daily range): BP systolic 95–151; BP diastolic 51–80; PULSE 64–81; RESP 14–20; TEMP 36.5–37.1; O2SAT 92–99
--- NOTE | 2023-01-04 | ECG_ITS ---
Test Reason : AFLUTTER Blood Pressure : / mmHG Vent. Rate : 143 BPM Atrial Rate : 300 BPM P-R Int : 000 ms QRS Dur : 098 ms QT Int : 324 ms P-R-T Axes : 000 084 170 degrees QTc Int : 500 ms Atrial flutter with variable A-V block Nonspecific T wave abnormality Abnormal ECG When compared with ECG of 03-JAN-2023 10:16, Atrial flutter has replaced Sinus rhythm Vent. rate has increased BY 63 BPM Nonspecific T wave abnormality now evident in Inferior leads T wave inversion more evident in Anterior leads Referred By: Emiliana Quinones Electronically Signed By:FRANSISCA PÉREZ MD
[2023-01-04 07:05] LABS: Glucose, Whole Blood 258 mg/dL (60-115)
[2023-01-04 07:53] LABS: Hematocrit 36.5 % (42.0-52.0); Hemoglobin 11.8 g/dl (14.0-18.0); Mean Corpuscular HGB Conc 32.3 g/dl (31.0-36.0); Mean Corpuscular Hemoglobin 27.1 pg (27.0-33.0); Mean Corpuscular Volume 83.9 fL (80.0-98.0); Mean Platelet Volume 9.3 fL (9.4-12.4); Platelet Count 292 X10*3/uL (160-400); Red Blood Count 4.35 X10*6/uL (4.60-5.80); Red Cell Distribution Width 14.1 % (11.0-16.0); White Blood Count 8.3 X10*3/uL (4.8-10.8)
[2023-01-04 08:05] LABS: Anion Gap 16 (12-20); Blood Urea Nitrogen 21 mg/dL (9-16); Calcium 9.7 mg/dL (8.4-10.2); Carbon Dioxide 25 mmol/L (22-29); Chloride 99 mmol/L (96-108); Creatinine Clr Calc Pharmacy 84.3; Estimated Glomerular Filt Rate > 60; Glucose Random 239 mg/dL (60-115); Magnesium 1.6 mg/dL (1.6-2.6); Potassium 4.1 mmol/L (3.3-5.1); Sodium 136 mmol/L (135-145)
[2023-01-04] MEDS: Metoprolol Tartrate 25 MG TABLET 75 MG PO ×2 (08:22→20:11)
[2023-01-04] MEDS: Aspirin Enteric Coated 81 MG TABLET.DR PO (08:22)
[2023-01-04] MEDS: DULoxetine HCl 30 MG CAPSULE.DR PO (08:22)
[2023-01-04] MEDS: Atorvastatin Calcium 40 MG TABLET PO (08:22)
[2023-01-04] MEDS: Furosemide 40 MG/4 ML VIAL IVPUSH ×2 (08:22→18:56)
[2023-01-04] MEDS: lisinopriL 5 MG TABLET PO (08:22)
[2023-01-04] MEDS: Acetaminophen 325 MG TABLET 650 MG PO ×2 (08:22→18:55)
[2023-01-04] MEDS: Gabapentin 600 MG TABLET PO ×3 (08:22→20:11)
[2023-01-04] MEDS: Apixaban 5 MG TABLET PO ×2 (08:22→20:12)
[2023-01-04] MEDS: Gabapentin 100 MG CAPSULE 200 MG PO ×3 (08:22→20:11)
[2023-01-04] MEDS: Insulin Glargine,Hum.rec.anlog 100 UNIT/ML 10 ML VIAL 39 UNIT SUBCUT (08:23)
[2023-01-04] MEDS: Insulin Lispro 100 UNIT/ML 3 ML VIAL SUBCUT ×4 (08:23→21:06)
[2023-01-04] MEDS: 0.9 % Sodium Chloride Flush 3 ML SYRINGE IVFLUSH ×2 (08:23→18:56)
--- NOTE | 2023-01-04 08:30 | MHC.CM.PN ---
CM met with Patient at bedside and addressed IMM with him, original was given to Patient and a copy has been placed on the chart. Patient is staying at the [facility] r/t ETOH Recovery and returning there once medically stable is the goal. CM has initiated and will follow for dc planning. Patient uses a cane, has received Covid vax x4 and his PCP is Dr. Gera Braun.
--- NOTE | 2023-01-04 09:36 | PM.CNCAR ---
History of Present Illness History of Present Illness Date of Service: 01/04/23 Requesting physician: Emiliana Quinones Consult reason: congestive heart failure Chief complaint: CHF exacerbation Narrative: I was consulted to see Isaias in cardiology consultation today for decompensated congestive heart failure. I reviewed the last discharge summary and it seems like patient was discharged on Lasix therapy. However he said he is not getting Lasix at home which is unclear. Will need to review his pharmacy records. Patient however said he was taking all other medications when asked about Entresto he said he was taking Entresto but he has never been on Entresto. He is on lisinopril therapy. He came to the hospital as he had progressively increasing shortness of breath and leg edema and abdominal distension. He was having trouble lying down and therefore came to the emergency room. In the Emergency was noted to be in decompensated congestive heart failure with admission BNP of 800. Patient has been diuresed and he says he feels very well today. Blood pressure is elevated. He has not had any recurrent irregular heartbeat or palpitations. Overnight monitoring has shown no arrhythmias. Denies lightheadedness, syncope. Question the compliance issues. Last time he was admitted he had LVEF of 40%. No follow-up ischemic workup Holter as been done. No cardiology follow-up. Review of Systems Constitutional: Constitutional: Reports no additional constitutional complaints Eyes: Eyes: Reports no additional eye complaints Cardiovascular: Cardiovascular: Denies chest pain, Reports leg edema, Denies lightheadedness, Denies Loss of Consciousness, Denies palpitations, Reports dyspnea on exertion and Reports orthopnea Respiratory: Respiratory: Reports no additional respiratory complaints and Reports dyspnea on exertion Genitourinary: Genitourinary: Reports no additional male genitourinary complaints Neurologic: Reports system reviewed and no additional complaints, except as documented Psychiatric: Psychiatric: Reports no additional psychiatric complaints Endocrine: Endocrine: Denies palpitations PMFSH Past Medical History Medical History Atrial fibrillation with RVR Congestive heart failure Insulin dependent type 2 diabetes mellitus Mood disorder Peripheral neuropathy Social History Social History Household Members: Other Household Members Other:: [facility] [address] Housing: Other Housing Other:: [facility] [address] Do you presently have visiting nurse or other home services: No Alcohol intake: never Patient Tobacco Use Status: Former Tobacco user Tobacco use type: Cigarette Cigarette Packs Per Day: 1 Cigarettes Per Day: 20.0 Smoked in Last 30 Days: No Patient Interested in Nicotine Replacement: No Second Hand Smoke Exposure: No Use of substances other than those prescribed or required for medical reasons: No Substance Use Type: Crack/Cocaine Currently Displaying Signs/Symptoms of Drug Intoxication Withdrawal: No Any prior treatment program specific to substance use: No Have you been hit, kicked, punched, or otherwise hurt by someone within the past year? If so, by whom?: No Do you feel safe in your current relationship?: No Current Relationship Is there a partner from a previous relationship who is making you feel unsafe now?: No Are you made to feel afraid or neglected: No Advance Directives: Yes Advance Directives on File: Yes Advance Directives Date on File: 11/30/22 Do you have thoughts of harming others: None Do you have a plan to hurt others: No Plan Recently lost weight without trying: No Eating poorly because of decreased appetite: No Nutrition Risks: No Nutritional Risk Poor oral hygiene: No service: No Meds Allergies Allergy/AdvReac Type Severity Reaction Status Date / Time No Known Allergies Allergy Unverified 01/02/23 06:00 [No Known Allergies*] Active Medications: Current Medications Acetaminophen (Acetaminophen 325 Mg Tablet) 650 mg PO Q6H PRN PRN Reason: Pain, Mild (Pain Scale 1-3) Last Admin: 01/04/23 08:22 Dose: 650 mg Albuterol Sulfate (Albuterol Sulfate 90 Mcg 8 Gm Inhaler) 2 puff INHALE Q4H PRN PRN Reason: Shortness Of Breath Or Wheezing Apixaban (Apixaban 5 Mg Tablet) 5 mg PO BID [facility] Last Admin: 01/04/23 08:22 Dose: 5 mg Aspirin (Aspirin Enteric Coated 81 Mg Tablet.) 81 mg PO DAILY [facility] Last Admin: 01/04/23 08:22 Dose: 81 mg Atorvastatin Calcium (Atorvastatin Calcium 40 Mg Tablet) 40 mg PO DAILY [facility] Last Admin: 01/04/23 08:22 Dose: 40 mg Baclofen (Baclofen 10 Mg Tablet) 5 mg PO TID PRN PRN Reason: Muscle Spasm Last Admin: 01/03/23 21:18 Dose: 5 mg Benzonatate (Benzonatate 100 Mg Capsule) 100 mg PO TID PRN PRN Reason: Cough Dextrose (Dextrose 50 % 25 Gm/50 Ml Syringe) 25 gm IVPUSH Q15M PRN; Protocol PRN Reason: per Hypoglycemia Standing Ord. Docusate Sodium (Docusate Sodium 100 Mg Capsule) 100 mg PO DAILY PRN PRN Reason: Constipation Duloxetine HCl (Duloxetine Hcl 30 Mg Capsule.Dr) 30 mg PO DAILY [facility] Last Admin: 01/04/23 08:22 Dose: 30 mg Furosemide (Furosemide 40 Mg/4 Ml Vial) 40 mg IVPUSH BID@0900,1800 [facility]; Protocol Last Admin: 01/04/23 08:22 Dose: 40 mg Gabapentin (Gabapentin 100 Mg Capsule) 200 mg PO TID [facility] Last Admin: 01/04/23 08:22 Dose: 200 mg Gabapentin (Gabapentin 600 Mg Tablet) 600 mg PO TID [facility] Last Admin: 01/04/23 08:22 Dose: 600 mg Glucose (Glucose Gel 15 Gm Gel..Gram.) 15 gm PO Q15M PRN; Protocol PRN Reason: per Hypoglycemia Standing Ord. Insulin Glargine (Insulin Glargine,Hum.Rec.Anlog 100 Unit/Ml 10 Ml Vial) 39 unit SUBCUT DAILY [facility] Last Admin: 01/04/23 08:23 Dose: 39 unit Insulin Human Lispro (Insulin Lispro 100 Unit/Ml 3 Ml Vial) 0 unit SUBCUT QIDACHS [facility]; Protocol Last Admin: 01/04/23 08:23 Dose: 6 unit Metoprolol Tartrate (Metoprolol Tartrate 25 Mg Tablet) 75 mg PO BID [facility]; Protocol Last Admin: 01/04/23 08:22 Dose: 75 mg Ondansetron HCl (Ondansetron Hcl 4 Mg/2 Ml Vial) 4 mg IVPUSH Q8H PRN PRN Reason: Nausea and Vomiting Pharmacy Consult (Consult Rx Perform Med Rec) 1 each MISCELLANE ONCE PRN PRN Reason: Consult order Sodium Chloride (0.9 % Sodium Chloride Flush 3 Ml Syringe) 3 ml IVFLUSH QSHIFT [facility] Last Admin: 01/04/23 08:23 Dose: 3 ml Trazodone HCl (Trazodone Hcl 50 Mg Tablet) 150 mg PO BEDTIME [facility] Last Admin: 01/03/23 21:18 Dose: 150 mg Home Medications Medication Instructions Recorded Confirmed Last Taken Type acetaminophen 500 mg tablet 500 mg PO TID PRN PAIN 11/30/22 01/03/23 Unknown History albuterol sulfate 90 mcg/actuation 2 puff inhalation Q4H PRN 11/30/22 01/03/23 Unknown History aerosol inhaler (Ventolin HFA) Shortness Of Breath Or Wheezing apixaban 5 mg tablet (Eliquis) 5 mg PO BID 11/30/22 01/03/23 01/03/23 History aspirin 81 mg tablet,delayed 81 mg PO DAILY 11/30/22 01/03/23 01/03/23 History release atorvastatin 40 mg tablet 40 mg PO DAILY 11/30/22 01/03/23 01/03/23 History baclofen 5 mg tablet 5 mg PO TID PRN Muscle Spasm 11/30/22 01/03/23 Unknown History duloxetine 30 mg capsule,delayed 30 mg PO DAILY 11/30/22 01/03/23 01/03/23 History release furosemide 40 mg tablet 40 mg PO DAILY 11/30/22 01/03/23 01/03/23 History gabapentin 100 mg capsule 200 mg PO TID 11/30/22 01/03/23 01/03/23 History gabapentin 600 mg tablet 600 mg PO TID 11/30/22 01/03/23 01/03/23 History insulin aspart U-100 100 unit/mL See Protocol subcut QIDACHS 11/30/22 01/03/23 01/03/23 History subcutaneous solution (Novolog U-100 Insulin aspart) insulin glargine 100 unit/mL (3 52 unit subcut DAILY 11/30/22 01/03/23 01/03/23 History mL) subcutaneous pen (Lantus Solostar U-100 Insulin) lisinopril 5 mg tablet 5 mg PO DAILY 11/30/22 01/03/23 01/03/23 History metformin 1,000 mg tablet 1,000 mg PO BIDWM 11/30/22 01/03/23 01/03/23 History lancets 30 gauge (1st Tier Unilet 12/10/22 01/01/23 Unknown History ComforTouch Lancet) pen needle, diabetic 31 gauge x #1,200 ea 12/10/22 01/01/23 Unknown History 5/16 (Ultracare Pen Needle) benzonatate 100 mg capsule 100 mg PO TID PRN Cough 01/03/23 01/03/23 01/03/23 History trazodone 50 mg tablet 150 mg PO BEDTIME 01/03/23 01/03/23 01/03/23 History Physical Exam Vital Signs: Vital Signs: Last Vital Signs Temp 97.7 F 01/04/23 07:04 Pulse 65 01/04/23 07:04 Resp 20 01/04/23 07:04 BP 137/80 01/04/23 07:04 Pulse Ox 98 01/04/23 07:04 O2 Del Method Room Air 01/04/23 07:04 BMI result Body Mass Index 23.8 Const: General: cooperative, comfortable, no acute distress, alert and awake Nutritional Appearance: average body habitus Orientation/consciousness: patient oriented x3 Limitations: no limitations HEENT: Head: Yes normocephalic and Yes atraumatic Neck: Neck: Yes trachea midline, Yes supple and Yes no JVD Resp: Effort & Inspection: normal respiratory effort Auscultation: rales bilateral Cardio: Jugular venous distension: no JVD Rate: regular rate Rhythm: regular rhythm Heart sounds: S1 normal heart sound present, S2 normal heart sound present, no click, no gallops, no murmurs and no rubs GI: Auscultation: normal bowel sounds Skin: General skin exam: no rashes or lesions noted Neuro: General: patient oriented x3 and no focal motor deficits Extrem: General: No clubbing, No cyanosis and Yes edema Objective Labs and Meds 01/04/23 07:01 01/04/23 07:01 Lab results: Laboratory Results - last 24 hr 01/03/23 01/03/23 01/03/23 10:29 10:29 10:29 WBC 8.1 RBC 4.14 L Hgb 11.4 L Hct 35.1 L MCV 84.8 MCH 27.5 MCHC 32.5 RDW 14.3 Plt Count 226 MPV 8.7 L Immature Gran % (Auto) 0.7 H Neut % (Auto) 70.3 Lymph % (Auto) 19.1 L Mitchell % (Auto) 7.3 Eos % (Auto) 2.4 Baso % (Auto) 0.2 Lymph # (Auto) 1.5 Mitchell # (Auto) 0.6 Eos # (Auto) 0.2 Baso # (Auto) 0.0 Abs Immat Gran (auto) 0.06 H Absolute Neuts (auto) 5.7 Absolute Nucleated RBC 0.000 Nucleated RBC % (auto) 0.0 Sodium 136 Potassium 4.4 Chloride 104 Carbon Dioxide 20 L Anion Gap 16 BUN 20 H Creatinine 0.84 Estim Creat Clear Calc 84.3 Estimated GFR > 60 POC Glucose Random Glucose 226 H Calcium 9.7 Magnesium Total Bilirubin 0.9 Direct Bilirubin 0.4 AST 30 ALT 38 Alkaline Phosphatase 101 Troponin I High Sens 112.8 H* D B-Natriuretic Peptide Total Protein 6.5 Albumin 3.9 Influenza Type A (PCR) Influenza Type B (PCR) RSV RNA Qual (PCR) SARS-CoV-2 RNA (RT-PCR) 01/03/23 01/03/23 01/03/23 10:29 13:30 15:41 WBC RBC Hgb Hct MCV MCH MCHC RDW Plt Count MPV Immature Gran % (Auto) Neut % (Auto) Lymph % (Auto) Mitchell % (Auto) Eos % (Auto) Baso % (Auto) Lymph # (Auto) Mitchell # (Auto) Eos # (Auto) Baso # (Auto) Abs Immat Gran (auto) Absolute Neuts (auto) Absolute Nucleated RBC Nucleated RBC % (auto) Sodium Potassium Chloride Carbon Dioxide Anion Gap BUN Creatinine Estim Creat Clear Calc Estimated GFR POC Glucose Random Glucose Calcium Magnesium Total Bilirubin Direct Bilirubin AST ALT Alkaline Phosphatase Troponin I High Sens 132.5 H* B-Natriuretic Peptide 800 H Total Protein Albumin Influenza Type A (PCR) NEGATIVE Influenza Type B (PCR) NEGATIVE RSV RNA Qual (PCR) NEGATIVE SARS-CoV-2 RNA (RT-PCR) NEGATIVE 01/03/23 01/03/23 01/04/23 17:47 20:47 06:58 WBC RBC Hgb Hct MCV MCH MCHC RDW Plt Count MPV Immature Gran % (Auto) Neut % (Auto) Lymph % (Auto) Mitchell % (Auto) Eos % (Auto) Baso % (Auto) Lymph # (Auto) Mitchell # (Auto) Eos # (Auto) Baso # (Auto) Abs Immat Gran (auto) Absolute Neuts (auto) Absolute Nucleated RBC Nucleated RBC % (auto) Sodium Potassium Chloride Carbon Dioxide Anion Gap BUN Creatinine Estim Creat Clear Calc Estimated GFR POC Glucose 183 H 221 H 258 H Random Glucose Calcium Magnesium Total Bilirubin Direct Bilirubin AST ALT Alkaline Phosphatase Troponin I High Sens B-Natriuretic Peptide Total Protein Albumin Influenza Type A (PCR) Influenza Type B (PCR) RSV RNA Qual (PCR) SARS-CoV-2 RNA (RT-PCR) 01/04/23 01/04/23 07:01 07:01 WBC 8.3 RBC 4.35 L Hgb 11.8 L Hct 36.5 L MCV 83.9 MCH 27.1 MCHC 32.3 RDW 14.1 Plt Count 292 D MPV 9.3 L Immature Gran % (Auto) Neut % (Auto) Lymph % (Auto) Mitchell % (Auto) Eos % (Auto) Baso % (Auto) Lymph # (Auto) Mitchell # (Auto) Eos # (Auto) Baso # (Auto) Abs Immat Gran (auto) Absolute Neuts (auto) Absolute Nucleated RBC 0.000 Nucleated RBC % (auto) 0.0 Sodium 136 Potassium 4.1 Chloride 99 Carbon Dioxide 25 Anion Gap 16 BUN 21 H Creatinine 0.84 Estim Creat Clear Calc 84.3 Estimated GFR > 60 POC Glucose Random Glucose 239 H Calcium 9.7 Magnesium 1.6 Total Bilirubin Direct Bilirubin AST ALT Alkaline Phosphatase Troponin I High Sens B-Natriuretic Peptide Total Protein Albumin Influenza Type A (PCR) Influenza Type B (PCR) RSV RNA Qual (PCR) SARS-CoV-2 RNA (RT-PCR) EKG on admission shows normal sinus rhythm with possible left atrial enlargement nonspecific T-wave changes Imaging Radiologist's impression: Impressions Chest X-Ray 01/03/23 10:38 IMPRESSION: Small bilateral pleural effusions, left greater than right. The left pleural effusion appears mildly increased in the right pleural effusion is decreased. Interval resolution of bilateral patchy infiltrates. Assessment and Plan (1) Heart failure, systolic, with acute decompensation: Status: Acute Recurrent admission because of heart failure question due to noncompliance question due to social issues. Patient has not had much follow-up workup. At this point time I think he continues to require diuresis for 1 more day. Strict intake and output chart needs to be pursued. Follow-up BMP and BNP tomorrow. Switch lisinopril to Diovan 40 mg b.i.d. with plan to transition him to Entresto therapy. Continue metoprolol for neurohormonal modulation. Compliance of medications an issue. This was discussed with him. He said he has a better living situation will be compliant with medication. Risk of recurrent hospitalization that was discussed. He will require ischemic workup as an outpatient. Troponin elevation most likely secondary to decompensated congestive heart underlying coronary artery disease cannot be entirely ruled out although does not require IV anticoagulation as already on oral anticoagulation therapy. (2) Paroxysmal atrial fibrillation: Status: Acute Paroxysmal atrial fibrillation without any obvious clinical recurrence at this point in time. Continue metoprolol therapy. Continue full oral anticoagulation with Eliquis. Avoidance of stimulants was discussed. There is no need for additional aspirin therapy. Will continue to follow with him. Time Spent With Patient Time: Total time managing care of this patient today ____ minutes. Procedures Date of Service Date of Service: 01/04/23
--- NOTE | 2023-01-04 10:50 | PC.NURSE ---
Patient hr 13
--- NOTE | 2023-01-04 10:51 | PC.NURSE ---
Pt's HR 130s-140s a fib on tele. Patient ambulating in room, and then transitioned to resting in bed. Patient asymptomatic. PA notified. EKG done- a flutter. New order for 2gm IV mag to be administered.
[2023-01-04 10:59] LABS: Glucose, Whole Blood 188 mg/dL (60-115)
[2023-01-04] MEDS: Magnesium Sulfate/H2O 2 GM/50 ML PIGGYBACK IV (11:21)
--- NOTE | 2023-01-04 13:18 | MHC.CM.PN ---
STEPHAN received a call from [facility] Public Relations Officer/Valerie @ [phone], who indicates that Patient may not be able to return to their program depending on how medically involved his care/needs will be at time of dc. Patient will also need new VNA if he is ultimately approved by [facility] to return. If approved to return, Valerie indicated that it would need to be Saturday or Saturday (not Saturday/tomorrow). Per Valerie's request, STEPHAN awaits the fax # for [facility] to send her the H&P for her to review prior to dc within the next day or so. CM will follow.
--- NOTE | 2023-01-04 14:38 | HO.PM.IMPN ---
Subjective Subjective Date of Service: 01/04/23 Interval History: Seen and examined this morning Follow-up for CHF Reports improvement in breathing. Denies chest pain Review of Systems Review of Systems: Yes all other systems are reviewed and are negative Constitutional Constitutional: Denies chills and Denies fever(s) Cardiovascular Cardiovascular: Denies chest pain, Denies palpitations and Denies dyspnea Respiratory Respiratory: Denies cough and Denies dyspnea Endocrine Endocrine: Denies palpitations Physical Exam Vital Signs: Vital Signs: Last Vital Signs Temp 97.7 F 01/04/23 10:57 Pulse 64 01/04/23 10:57 Resp 20 01/04/23 10:57 BP 112/68 01/04/23 10:57 Pulse Ox 98 01/04/23 10:57 O2 Del Method Room Air 01/04/23 10:57 BMI result Body Mass Index 23.8 Const: General: cooperative, comfortable, no acute distress, alert and awake Nutritional Appearance: average body habitus Orientation/consciousness: patient oriented x3 Resp: Other: fine basilar rales Effort & Inspection: normal respiratory effort, no respiratory distress and no use of accessory muscles Cardio: Rate: regular rate Heart sounds: S1 normal heart sound present and S2 normal heart sound present GI: Inspection: No distended Palpation (GI): Soft to palpation and nontender Neuro: General: patient oriented x3 and CN's II-XI intact bilaterally Extrem: Other: trace leg edema Objective Data Active Medications Acetaminophen (Acetaminophen 325 Mg Tablet) 650 mg PO Q6H PRN PRN Reason: Pain, Mild (Pain Scale 1-3) Last Admin: 01/04/23 08:22 Dose: 650 mg Documented By: JACOB Albuterol Sulfate (Albuterol Sulfate 90 Mcg 8 Gm Inhaler) 2 puff INHALE Q4H PRN PRN Reason: Shortness Of Breath Or Wheezing Apixaban (Apixaban 5 Mg Tablet) 5 mg PO BID [facility] Last Admin: 01/04/23 08:22 Dose: 5 mg Documented By: JACOB Atorvastatin Calcium (Atorvastatin Calcium 40 Mg Tablet) 40 mg PO DAILY [facility] Last Admin: 01/04/23 08:22 Dose: 40 mg Documented By: JACOB Baclofen (Baclofen 10 Mg Tablet) 5 mg PO TID PRN PRN Reason: Muscle Spasm Last Admin: 01/03/23 21:18 Dose: 5 mg Documented By: MARIKA Benzonatate (Benzonatate 100 Mg Capsule) 100 mg PO TID PRN PRN Reason: Cough Dextrose (Dextrose 50 % 25 Gm/50 Ml Syringe) 25 gm IVPUSH Q15M PRN; Protocol PRN Reason: per Hypoglycemia Standing Ord. Docusate Sodium (Docusate Sodium 100 Mg Capsule) 100 mg PO DAILY PRN PRN Reason: Constipation Duloxetine HCl (Duloxetine Hcl 30 Mg Capsule.Dr) 30 mg PO DAILY [facility] Last Admin: 01/04/23 08:22 Dose: 30 mg Documented By: JACOB Furosemide (Furosemide 40 Mg/4 Ml Vial) 40 mg IVPUSH BID@0900,1800 [facility]; Protocol Last Admin: 01/04/23 08:22 Dose: 40 mg Documented By: JACOB Gabapentin (Gabapentin 100 Mg Capsule) 200 mg PO TID [facility] Last Admin: 01/04/23 14:03 Dose: 200 mg Documented By: JACOB Gabapentin (Gabapentin 600 Mg Tablet) 600 mg PO TID [facility] Last Admin: 01/04/23 14:03 Dose: 600 mg Documented By: JACOB Glucose (Glucose Gel 15 Gm Gel..Gram.) 15 gm PO Q15M PRN; Protocol PRN Reason: per Hypoglycemia Standing Ord. Insulin Glargine (Insulin Glargine,Hum.Rec.Anlog 100 Unit/Ml 10 Ml Vial) 39 unit SUBCUT DAILY [facility] Last Admin: 01/04/23 08:23 Dose: 39 unit Documented By: JACOB Insulin Human Lispro (Insulin Lispro 100 Unit/Ml 3 Ml Vial) 0 unit SUBCUT QIDACHS [facility]; Protocol Last Admin: 01/04/23 11:21 Dose: 2 unit Documented By: JACOB Metoprolol Tartrate (Metoprolol Tartrate 25 Mg Tablet) 75 mg PO BID [facility]; Protocol Last Admin: 01/04/23 08:22 Dose: 75 mg Documented By: JACOB Ondansetron HCl (Ondansetron Hcl 4 Mg/2 Ml Vial) 4 mg IVPUSH Q8H PRN PRN Reason: Nausea and Vomiting Pharmacy Consult (Consult Rx Perform Med Rec) 1 each MISCELLANE ONCE PRN PRN Reason: Consult order Sodium Chloride (0.9 % Sodium Chloride Flush 3 Ml Syringe) 3 ml IVFLUSH QSHIFT [facility] Last Admin: 01/04/23 08:23 Dose: 3 ml Documented By: JACOB Trazodone HCl (Trazodone Hcl 50 Mg Tablet) 150 mg PO BEDTIME [facility] Last Admin: 01/03/23 21:18 Dose: 150 mg Documented By: MARIKA Valsartan (Valsartan 40 Mg Tablet) 40 mg PO BID [facility]; Protocol Labs 01/04/23 07:01 01/04/23 07:01 Labs: Laboratory Results - last 24 hr 01/03/23 01/03/23 01/03/23 15:41 17:47 20:47 MCV MCH MCHC RDW Plt Count MPV Absolute Nucleated RBC Nucleated RBC % (auto) Anion Gap Estim Creat Clear Calc Estimated GFR POC Glucose 183 H 221 H Random Glucose Calcium Magnesium Influenza Type A (PCR) NEGATIVE Influenza Type B (PCR) NEGATIVE RSV RNA Qual (PCR) NEGATIVE SARS-CoV-2 RNA (RT-PCR) NEGATIVE 01/04/23 01/04/23 01/04/23 06:58 07:01 07:01 MCV 83.9 MCH 27.1 MCHC 32.3 RDW 14.1 Plt Count 292 D MPV 9.3 L Absolute Nucleated RBC 0.000 Nucleated RBC % (auto) 0.0 Anion Gap 16 Estim Creat Clear Calc 84.3 Estimated GFR > 60 POC Glucose 258 H Random Glucose 239 H Calcium 9.7 Magnesium 1.6 Influenza Type A (PCR) Influenza Type B (PCR) RSV RNA Qual (PCR) SARS-CoV-2 RNA (RT-PCR) 01/04/23 10:50 MCV MCH MCHC RDW Plt Count MPV Absolute Nucleated RBC Nucleated RBC % (auto) Anion Gap Estim Creat Clear Calc Estimated GFR POC Glucose 188 H Random Glucose Calcium Magnesium Influenza Type A (PCR) Influenza Type B (PCR) RSV RNA Qual (PCR) SARS-CoV-2 RNA (RT-PCR) Assessment and Plan (1) Paroxysmal atrial fibrillation: Status: Acute (2) Heart failure, systolic, with acute decompensation: Status: Acute Plan Pt is a 62-year-old male with a PMH significant for?HFrEF of 40%, paroxysmal AFib on Eliquis, insulin-dependent diabetes type 2 with neuropathy, HTN, HLD, and mood disorder who presents to the ED with?increasing shortness of breath and lower leg edema the past week. Pt will be admitted to the hospital for treatment and further evaluation of acute CHF exacerbation. Acute on chronic combined systolic and diastolic heart failure exacerbation Secondary to medication noncompliance, not taking furosemide for the past month Continue Furosemide 40 mg IV b.i.d. Follow lytes, mg, I/O Daily weights, low-salt diet Lisinopril changed to valsartan with plan to transition to Entresto was outpatient Cardiology following Elevated troponin Initial troponin 112.8 with repeat flat at 132.[address] elevations or depressions, patient asymptomatic Likely type 2 the setting of increased demand. Underlying coronary artery disease can not be ruled out. Will need outpatient ischemic workup Myalgias, chills Pt has been complaining of flu-like symptoms for 2 weeks, better for past 4 days flu/COVID/RSV panel negative resolved Paroxysmal AFib had episode of rapid afib this am, but converted before meds were given Continue metoprolol, Eliquis Insulin dependent diabetes type 2 Hold metformin Sliding-scale insulin Lantus Diabetic neuropathy Continue gabapentin HTN Lisinopril changed to valsartan HLD Continue statin Mood disorder Continue home meds Full Code Attending:?Dr. Braun DVT Prophylaxis: Kalinaabbiemicheal Requires ongoing inpatient hospitalization for IV Lasix for acute CHF exacerbation Time Spent With Patient Time: Total time managing care of this patient today ____ minutes. Quality Stroke Does the patient have a stroke diagnosis?: No VTE Prior VTE?: No VTE Risk Level:: Medical - moderate - high VTE Device Contraindication: Treatment Not Indicated VTE Drug Contraindication: N/A - Med Ordered
--- NOTE | 2023-01-04 15:49 | MHC.CM.PN ---
Requested information has been faxed to [employer] @ [facility] (Patricia Montero @ [phone].
[2023-01-04 16:48] LABS: Glucose, Whole Blood 266 mg/dL (60-115)
[2023-01-04] MEDS: Docusate Sodium 100 MG CAPSULE PO (18:56)
[2023-01-04] MEDS: traZODone HCL 50 MG TABLET 150 MG PO (20:12)
[2023-01-04] MEDS: Valsartan 40 MG TABLET PO (20:12)
[2023-01-04 20:36] LABS: Glucose, Whole Blood 294 mg/dL (60-115)
[2023-01-05] MEDS: 0.9 % Sodium Chloride Flush 3 ML SYRINGE IVFLUSH ×3 (00:41→15:45)
[2023-01-05 03:18] VITALS: BP 101/56; PULSE 70; RESP 18; TEMP 37; O2SAT 90
[2023-01-05 07:09] LABS: Glucose, Whole Blood 284 mg/dL (60-115)
[2023-01-05 07:16] VITALS: BP 129/69; PULSE 76; RESP 20; TEMP 36.3; O2SAT 99
[2023-01-05 07:18] LABS: Anion Gap 14 (12-20); Blood Urea Nitrogen 22 mg/dL (9-16); Calcium 9.4 mg/dL (8.4-10.2); Carbon Dioxide 27 mmol/L (22-29); Chloride 98 mmol/L (96-108); Creatinine Clr Calc Pharmacy 79.6; Estimated Glomerular Filt Rate > 60; Glucose Random 318 mg/dL (60-115); Potassium 3.8 mmol/L (3.3-5.1); Sodium 135 mmol/L (135-145)
[2023-01-05 07:22] LABS: B Type Natriuretic Peptide 611 pg/mL (<100)
[2023-01-05] MEDS: Furosemide 40 MG/4 ML VIAL IVPUSH (08:09)
[2023-01-05] MEDS: Gabapentin 600 MG TABLET PO ×3 (08:09→20:39)
[2023-01-05] MEDS: Gabapentin 100 MG CAPSULE 200 MG PO ×3 (08:09→20:39)
[2023-01-05] MEDS: DULoxetine HCl 30 MG CAPSULE.DR PO (08:09)
[2023-01-05] MEDS: Insulin Glargine,Hum.rec.anlog 100 UNIT/ML 10 ML VIAL 39 UNIT SUBCUT (08:10)
[2023-01-05] MEDS: Valsartan 40 MG TABLET PO ×2 (08:10→20:39)
[2023-01-05] MEDS: Atorvastatin Calcium 40 MG TABLET PO (08:10)
[2023-01-05] MEDS: Insulin Lispro 100 UNIT/ML 3 ML VIAL SUBCUT ×4 (08:10→20:49)
[2023-01-05] MEDS: Apixaban 5 MG TABLET PO ×2 (08:10→20:39)
[2023-01-05] MEDS: Metoprolol Tartrate 25 MG TABLET 75 MG PO ×2 (08:10→20:39)
[2023-01-05] MEDS: Acetaminophen 325 MG TABLET 650 MG PO ×3 (08:21→20:43)
[2023-01-05 11:02] VITALS: BP 108/65; PULSE 67; RESP 20; TEMP 37.3; O2SAT 100
[2023-01-05 11:03] LABS: Glucose, Whole Blood 195 mg/dL (60-115)
--- NOTE | 2023-01-05 13:52 | PM.DS ---
DS: Providers Provider Date of Service: 01/05/23 Date of admission: 01/03/23 15:42 Date of discharge: 01/05/23 Primary care physician: Gera Braun MD Consults: 01/03/23 15:42 Consult to Cardiology Routine Consulting Provider: [facility] [place] Cardiovascular Services Reason for consultation: HFrEF exacerbation, 2nd hospitalization in past month Attending physician on discharge: Greta Reeder Discharging clinician: Emiliana Quinones DS: Diagnosis Discharge Diagnosis (1) Paroxysmal atrial fibrillation: Status: Acute (2) Heart failure, systolic, with acute decompensation: Status: Acute DS: Summary Hospital Course Hospital Course: From H&P on day of admission Pt is a 62-year-old male with a PMH significant for?HFrEF of 40%, paroxysmal AFib on Eliquis, insulin-dependent diabetes type 2 with neuropathy, HTN, HLD, and mood disorder who presents to the ED with?increasing shortness of breath and lower leg edema the past week.? Patient was recently admitted to the hospital 1 month prior on 11/30/2022 through 12/07/2022 and treated for acute CHF exacerbation.? Patient states that upon discharge he was not prescribed furosemide and has not been taking any ?water pill? since discharge.? Has also not followed up with cardiology since discharge.? Patient also endorses orthopnea, PND, and dyspnea with exertion, saying that he even gets fatigued eating.? The patient also complains of lower back pain radiates down his legs for the past few weeks, especially noticeable when he either bends over or lays on his back.? Patient denies falling or trauma to the area.? Patient also complains of chills, headache, myalgias, cough occasionally productive of whitish sputum for the past 2 weeks works, has felt better the past 4 days.? Patient feels ?chest tightness? with breathing especially with exertion, but denies chest pain/pressure.? No nausea, vomiting, abdominal pain. In the ED patient was afebrile but slightly hypertensive at 146/80, satting at 98% on RA. Labs were significant for stable H&H of 11.4/35.1, initial troponin 112.8 with repeat flat at 132.5, and BNP elevated at 800.? Electrolytes WNL.? Renal function baseline.? Hepatic function WNL. CXR showed small bilateral pleural effusions with left greater than right. EKG demonstrated normal sinus rhythm with unspecified T-wave abnormality but no evidence of ST elevations or depressions. Pt was treated with furosemide 40 mg IV. Pt will be admitted to the hospital for treatment and further evaluation of acute CHF exacerbation Acute on chronic combined systolic and diastolic heart failure exacerbation. Secondary to medication noncompliance, not taking furosemide for the past month. Initially treated with IV lasix with good effect and improvement in respiratory symptoms. He was seen in consultation by Cardiology, lisinopril was recommended to be changed to valsartan with plan to transition to Entresto as outpatient. will be transitioned back to oral Lasix upon discharge. will need outpatient cardiology follow up Elevated troponin Initial troponin 112.8 with repeat flat at 132.5. Likely type 2 the setting of increased demand.? Underlying coronary artery disease can not be ruled out.? Will need outpatient ischemic workup. Paroxysmal AFib had episode of rapid afib, but converted before meds were given. Continue metoprolol, Eliquis. Aspirin was discontinued. Time Spent with Patient Time attestation: Total time managing care of this patient today ____ minutes. Discharge coordination time: Greater than 30 minutes Quality: Safe Use of Opioids Does Pt have an Active Cancer Diagnosis on the Problem List?: No Quality: Stroke Does the patient have a stroke diagnosis?: No Physical Exam Vital Signs: Vital Signs: Last Vital Signs Temp 99.2 F 01/05/23 11:02 Pulse 67 01/05/23 11:02 Resp 20 01/05/23 11:02 BP 108/65 01/05/23 11:02 Pulse Ox 100 01/05/23 11:02 O2 Del Method Room Air 01/05/23 11:02 BMI result Body Mass Index 23.8 DS: Data Data Completed and Pending Labs on day of discharge: Laboratory Results - last 24 hr 01/04/23 01/04/23 01/05/23 16:40 20:25 06:38 Sodium Potassium Chloride Carbon Dioxide Anion Gap BUN Creatinine Estim Creat Clear Calc Estimated GFR POC Glucose 266 H 294 H Random Glucose Calcium B-Natriuretic Peptide 611 H 01/05/23 01/05/23 01/05/23 06:38 06:58 10:54 Sodium 135 Potassium 3.8 Chloride 98 Carbon Dioxide 27 Anion Gap 14 BUN 22 H Creatinine 0.89 Estim Creat Clear Calc 79.6 Estimated GFR > 60 POC Glucose 284 H 195 H Random Glucose 318 H Calcium 9.4 B-Natriuretic Peptide Discharge Plan Discharge Anticipated Discharge Date/Time: 01/05/23 13:44 Patient Disposition: Home, Self-Care Discharge Diagnosis: Acute on chronic chf paroxysmal atrial fibrillation Referrals: Gera Braun MD [Primary Care Provider] - 1 Week Pilo Hernandez MD [Physician] - 1 Week Discharge Medications: New valsartan 40 mg Tablet 40 mg PO BID 30 Days Qty: 60 0RF Protocol: Hold for SBP< HOLD for SBP < : 90 furosemide [Lasix] 40 mg tablet 40 mg PO DAILY 45 Days Qty: 45 0RF Rx Instructions: take 40 mg daily. if weight gain greater then 3 lbs in one day, take an additional 40 mg tablet Continued trazodone 50 mg tablet 150 mg PO BEDTIME benzonatate 100 mg capsule 100 mg PO TID PRN (Reason: Cough) baclofen 5 mg tablet 5 mg PO TID PRN (Reason: Muscle Spasm) atorvastatin 40 mg tablet 40 mg PO DAILY metformin 1,000 mg tablet 1,000 mg PO BIDWM gabapentin 100 mg capsule 200 mg PO TID albuterol sulfate [Ventolin HFA] 90 mcg/actuation HFA aerosol inhaler 2 puff inhalation Q4H PRN (Reason: Shortness Of Breath Or Wheezing) duloxetine 30 mg capsule,delayed release(DR/EC) 30 mg PO DAILY Eliquis 5 mg tablet 5 mg PO BID insulin aspart U-100 [Novolog U-100 Insulin aspart] 100 unit/mL solution See [facility] Protocol: Insulin Correction Scale Less than or equal to 110 ---- Give (units): 0 111 to 150 Give (units): 0 151 to 200 Give (units): 2 201 to 250 Give (units): 4 251 to 300 Give (units): 6 301 to 350 Give (units): 8 Greater than 350 Give (units): 10 Call MD if Blood Glucose > : 350 insulin glargine [Lantus Solostar U-100 Insulin] 100 unit/mL (3 mL) insulin pen 52 unit subcut DAILY gabapentin 600 mg tablet 600 mg PO TID acetaminophen 500 mg tablet 500 mg PO TID PRN (Reason: PAIN) metoprolol tartrate 25 mg Tablet 75 mg PO BID Qty: 60 0RF Protocol: Hold for SBP/HR < HOLD for SBP < : 90 HOLD for HR < : 60 azithromycin 250 mg tablet See Rx Instructions PO .COMPLEX Qty: 6 0RF Rx Instructions: take 500 mg today (day 1), then 250 mg for 4 days (days 2-5) PO Discontinued furosemide 40 mg tablet 40 mg PO DAILY aspirin 81 mg tablet,delayed release (DR/EC) 81 mg PO DAILY lisinopril 5 mg tablet 5 mg PO DAILY No Action (DME) lancets [OneTouch Delica Plus Lancet] 33 gauge misc See Rx Instructions .Route Qty: 100 0RF Rx Instructions: test blood sugar 3 times a day (DME) blood-glucose meter [OneTouch Verio Flex Start] Kit See Rx Instructions .Route Qty: 1 0RF Rx Instructions: As directed (DME) OneTouch Verio test strips Strip See Rx Instructions .Route Qty: 100 0RF Rx Instructions: Test blood sugar 3 times per day (DME) lancets [1st Tier Unilet ComforTouch] 30 gauge misc See Rx Instructions .Route Rx Instructions: As directed (DME) pen needle, diabetic [Ultracare Pen Needle] 31 gauge x 5/16 needle See Rx Instructions .ROUTE .MEDSUPPLY Qty: 1200 Rx Instructions: As directed Discharge Orders: Discharge Order (Routine); Ordered 01/05/23 Ordered By: Emiliana Quinones Diet: low salt/diabetic Activity on Discharge: As tolerated Stand Alone Forms: Patient Portal Discharge page Care Plan Goals: see below Health Concerns: acute on chronic CHF atrial fibrillation Plan of Treatment: stop taking lisinopril, start taking losartan stop taking aspirin take lasix 40 mg daily monitor your weight daily, if you can more then 3 pounds in one day take an additional 40 mg tablet. if you have to take an additional tablet two days in a row call your PCP or cardiology office follow low salt diet, diabetic diet take all other medications as prescribed Assessment: see discharge summary
--- NOTE | 2023-01-05 14:16 | PM.PNCARD ---
Subjective Subjective Date of Service: 01/05/23 Principal diagnosis: Paroxysmal atrial flutter, systolic heart failure Interval history: Patient developed paroxysmal atrial flutter which converted back to sinus rhythm with just rate control. Did not require any additional therapy. He had no symptoms although he says that in the past he has had rapid heart rate symptoms. He says breathing is much improved. Taking all his medications. Review of Systems Constitutional: Reports no additional constitutional complaints Eyes: Reports no additional eye complaints Cardiovascular: Reports no additional cardiovascular complaints Respiratory: Reports no additional respiratory complaints Genitourinary: Reports no additional male genitourinary complaints Skin/Breast: Reports system reviewed and no additional complaints, except as docu Psychiatric: Reports no additional psychiatric complaints Physical Exam Vital Signs: Last Vital Signs Temp 99.2 F 01/05/23 11:02 Pulse 67 01/05/23 11:02 Resp 20 01/05/23 11:02 BP 108/65 01/05/23 11:02 Pulse Ox 100 01/05/23 11:02 O2 Del Method Room Air 01/05/23 11:02 BMI result Body Mass Index 23.8 Const General: cooperative, comfortable, no acute distress, alert and awake Nutritional Appearance: average body habitus Orientation/consciousness: patient oriented x3 Limitations: no limitations HEENT Head: Yes normocephalic and Yes atraumatic Neck Neck: Yes trachea midline, Yes supple and Yes no JVD Resp Effort & Inspection: normal respiratory effort Auscultation: rales bilateral Cardio Jugular venous distension: no JVD Rate: regular rate Rhythm: regular rhythm Heart sounds: S1 normal heart sound present, S2 normal heart sound present, no click, no gallops, no murmurs and no rubs GI Auscultation: normal bowel sounds Skin General skin exam: no rashes or lesions noted Neuro General: patient oriented x3 and no focal motor deficits Extrem General: No clubbing, No cyanosis and Yes edema Objective Labs and Meds 01/04/23 07:01 01/05/23 06:38 Lab results: Laboratory Results - last 24 hr 01/04/23 01/04/23 01/05/23 16:40 20:25 06:38 Sodium Potassium Chloride Carbon Dioxide Anion Gap BUN Creatinine Estim Creat Clear Calc Estimated GFR POC Glucose 266 H 294 H Random Glucose Calcium B-Natriuretic Peptide 611 H 01/05/23 01/05/23 01/05/23 06:38 06:58 10:54 Sodium 135 Potassium 3.8 Chloride 98 Carbon Dioxide 27 Anion Gap 14 BUN 22 H Creatinine 0.89 Estim Creat Clear Calc 79.6 Estimated GFR > 60 POC Glucose 284 H 195 H Random Glucose 318 H Calcium 9.4 B-Natriuretic Peptide Progress Note: A&P Assessment and plan (1) Heart failure, systolic, with acute decompensation: Status: Acute Assessment and Plan: Patient with systolic heart failure clinically doing very well. Has been switched to valsartan therapy. Tolerating this well. Continue metoprolol therapy. Continue both for neurohormonal modulation. Discharged on Lasix 40 mg daily. Increase Lasix as need be. Advised daily weight monitoring avoidance of salt loading. Ischemic workup will be pursued as outpatient. Continue rhythm control approach. Importance of medical therapy was discussed any understands. (2) Paroxysmal atrial fibrillation: Status: Acute Assessment and Plan: Paroxysmal atrial fibrillation which is currently controlled and in sinus rhythm after as rate control. Continue metoprolol therapy. Continue full oral anticoagulation with Eliquis. Importance of medical therapy was discussed avoidance of stimulants was discussed. Follow up in the clinic in 2 weeks time after workup. Thank you for allowing me to partake in his care Time Spent With Patient Time: Total time managing care of this patient today ____ minutes. Progress Note: Quality Stroke Does the patient have a stroke diagnosis?: No Procedures Date of Service Date of Service: 01/05/23
--- NOTE | 2023-01-05 14:45 | P.PNIM_ITS ---
Subjective Subjective Date of Service: 01/05/23 Interval History: seen and examined this morning follow up for chf feeling well, no sob no leg edema, chest pain or palpitations Review of Systems Review of Systems: Yes all other systems are reviewed and are negative Constitutional Constitutional: Denies chills and Denies fever(s) ENT Ears, Nose, Mouth, and Throat: Denies dizziness Cardiovascular Cardiovascular: Denies chest pain, Denies palpitations and Denies dyspnea Respiratory Respiratory: Denies cough and Denies dyspnea Gastrointestinal Gastrointestinal: Denies abdominal pain Neurologic Neurologic: Denies dizziness Endocrine Endocrine: Denies palpitations Physical Exam Vital Signs: Vital Signs: Last Vital Signs Temp 99.2 F 01/05/23 11:02 Pulse 67 01/05/23 11:02 Resp 20 01/05/23 11:02 BP 108/65 01/05/23 11:02 Pulse Ox 100 01/05/23 11:02 O2 Del Method Room Air 01/05/23 11:02 BMI result Body Mass Index 23.8 Const: General: cooperative, comfortable, no acute distress, alert and awake Nutritional Appearance: average body habitus Orientation/consciousness: patient oriented x3 Resp: Effort & Inspection: normal respiratory effort, no respiratory distress and no use of accessory muscles Auscultation: clear to auscultation bilaterally Cardio: Rate: regular rate Heart sounds: S1 normal heart sound present and S2 normal heart sound present GI: Inspection: No distended Palpation (GI): Soft to palpation and nontender Neuro: General: patient oriented x3 and CN's II-XI intact bilaterally Extrem: General: Yes no pedal edema Objective Data Active Medications Acetaminophen (Acetaminophen 325 Mg Tablet) 650 mg PO Q6H PRN PRN Reason: Pain, Mild (Pain Scale 1-3) Last Admin: 01/05/23 08:21 Dose: 650 mg Documented By: TOM Albuterol Sulfate (Albuterol Sulfate 90 Mcg 8 Gm Inhaler) 2 puff INHALE Q4H PRN PRN Reason: Shortness Of Breath Or Wheezing Apixaban (Apixaban 5 Mg Tablet) 5 mg PO BID [facility] Last Admin: 01/05/23 08:10 Dose: 5 mg Documented By: TOM Atorvastatin Calcium (Atorvastatin Calcium 40 Mg Tablet) 40 mg PO DAILY [facility] Last Admin: 01/05/23 08:10 Dose: 40 mg Documented By: TOM Baclofen (Baclofen 10 Mg Tablet) 5 mg PO TID PRN PRN Reason: Muscle Spasm Last Admin: 01/03/23 21:18 Dose: 5 mg Documented By: MARIKA Benzonatate (Benzonatate 100 Mg Capsule) 100 mg PO TID PRN PRN Reason: Cough Dextrose (Dextrose 50 % 25 Gm/50 Ml Syringe) 25 gm IVPUSH Q15M PRN; Protocol PRN Reason: per Hypoglycemia Standing Ord. Docusate Sodium (Docusate Sodium 100 Mg Capsule) 100 mg PO DAILY PRN PRN Reason: Constipation Last Admin: 01/04/23 18:56 Dose: 100 mg Documented By: ELEAZAR Duloxetine HCl (Duloxetine Hcl 30 Mg Capsule.Dr) 30 mg PO DAILY [facility] Last Admin: 01/05/23 08:09 Dose: 30 mg Documented By: TOM Furosemide (Furosemide 40 Mg/4 Ml Vial) 40 mg IVPUSH BID@0900,1800 [facility]; Protocol Last Admin: 01/05/23 08:09 Dose: 40 mg Documented By: TOM Gabapentin (Gabapentin 100 Mg Capsule) 200 mg PO TID [facility] Last Admin: 01/05/23 08:09 Dose: 200 mg Documented By: TOM Gabapentin (Gabapentin 600 Mg Tablet) 600 mg PO TID [facility] Last Admin: 01/05/23 08:09 Dose: 600 mg Documented By: TOM Glucose (Glucose Gel 15 Gm Gel..Gram.) 15 gm PO Q15M PRN; Protocol PRN Reason: per Hypoglycemia Standing Ord. Insulin Glargine (Insulin Glargine,Hum.Rec.Anlog 100 Unit/Ml 10 Ml Vial) 39 unit SUBCUT DAILY [facility] Last Admin: 01/05/23 08:10 Dose: 39 unit Documented By: TOM Insulin Human Lispro (Insulin Lispro 100 Unit/Ml 3 Ml Vial) 0 unit SUBCUT QIDACHS [facility]; Protocol Last Admin: 01/05/23 12:18 Dose: 2 unit Documented By: TOM Metoprolol Tartrate (Metoprolol Tartrate 25 Mg Tablet) 75 mg PO BID [facility]; Protocol Last Admin: 01/05/23 08:10 Dose: 75 mg Documented By: HO.DOBROB Ondansetron HCl (Ondansetron Hcl 4 Mg/2 Ml Vial) 4 mg IVPUSH Q8H PRN PRN Reason: Nausea and Vomiting Pharmacy Consult (Consult Rx Perform Med Rec) 1 each MISCELLANE ONCE PRN PRN Reason: Consult order Sodium Chloride (0.9 % Sodium Chloride Flush 3 Ml Syringe) 3 ml IVFLUSH QSHIFT [facility] Last Admin: 01/05/23 08:11 Dose: 3 ml Documented By: TOM Trazodone HCl (Trazodone Hcl 50 Mg Tablet) 150 mg PO BEDTIME [facility] Last Admin: 01/04/23 20:12 Dose: 150 mg Documented By: DAFNE Valsartan (Valsartan 40 Mg Tablet) 40 mg PO BID [facility]; Protocol Last Admin: 01/05/23 08:10 Dose: 40 mg Documented By: TOM Labs 01/04/23 07:01 01/05/23 06:38 Labs: Laboratory Results - last 24 hr 01/04/23 01/04/23 01/05/23 16:40 20:25 06:38 Anion Gap Estim Creat Clear Calc Estimated GFR POC Glucose 266 H 294 H Random Glucose Calcium B-Natriuretic Peptide 611 H 01/05/23 01/05/23 01/05/23 06:38 06:58 10:54 Anion Gap 14 Estim Creat Clear Calc 79.6 Estimated GFR > 60 POC Glucose 284 H 195 H Random Glucose 318 H Calcium 9.4 B-Natriuretic Peptide Assessment and Plan (1) Paroxysmal atrial fibrillation: Status: Acute (2) Heart failure, systolic, with acute decompensation: Status: Acute Plan Pt is a 62-year-old male with a PMH significant for?HFrEF of 40%, paroxysmal AFib on Eliquis, insulin-dependent diabetes type 2 with neuropathy, HTN, HLD, and mood disorder who presents to the ED with?increasing shortness of breath and lower leg edema the past week. Pt will be admitted to the hospital for treatment and further evaluation of acute CHF exacerbation. Acute on chronic combined systolic and diastolic heart failure exacerbation Secondary to medication noncompliance, not taking furosemide for the past month will transition to p.o. Lasix, 40 mg daily Lisinopril changed to valsartan with plan to transition to Entresto as outpatient Cardiology following Elevated troponin Initial troponin 112.8 with repeat flat at 132.[address] elevations or depressions, patient asymptomatic Likely type 2 the setting of increased demand. Underlying coronary artery disease can not be ruled out. Will need outpatient ischemic workup Myalgias, chills Pt has been complaining of flu-like symptoms for 2 weeks, better for past 4 days flu/COVID/RSV panel negative resolved Paroxysmal AFib had episode of rapid afib 01/04, but converted before meds were given Continue metoprolol, Eliquis Insulin dependent diabetes type 2 Hold metformin Sliding-scale insulin Lantus Diabetic neuropathy Continue gabapentin HTN Lisinopril changed to valsartan HLD Continue statin Mood disorder Continue home meds Full Code Attending:?Dr. Reeder DVT Prophylaxis: Vern[place] dispo: return to [facility] - they are unable to accept him back until Saturday Requires ongoing inpatient hospitalization for safe disposition Time Spent With Patient Time: Total time managing care of this patient today ____ minutes. Quality Stroke Does the patient have a stroke diagnosis?: No VTE Prior VTE?: No VTE Risk Level:: Medical - moderate - high VTE Device Contraindication: Treatment Not Indicated VTE Drug Contraindication: N/A - Med Ordered
--- NOTE | 2023-01-05 14:48 | MHC.CM.PN ---
Received a call from taylor Padilla/[employer] programmer: [phone]. She states Pt cannot return this W/E D/T having no nursing staff today 01/05/23 and tomorrow 01/06/23. She is requesting revisiting Pt's return to home/the program on Saturday am 01/07/23. This CM alerted medical. CM to follow.
[2023-01-05 15:12] VITALS: BP 134/77; PULSE 79; RESP 20; TEMP 36.4; O2SAT 99
[2023-01-05 16:56] LABS: Glucose, Whole Blood 237 mg/dL (60-115)
[2023-01-05 20:00] VITALS: BP 126/75; PULSE 85; RESP 20; TEMP 36.2; O2SAT 97
[2023-01-05 20:40] LABS: Glucose, Whole Blood 242 mg/dL (60-115)
[2023-01-05] MEDS: Baclofen 10 MG TABLET 5 MG PO (20:43)
[2023-01-05] MEDS: traZODone HCL 50 MG TABLET 150 MG PO (22:00)
[2023-01-05 23:09] VITALS: BP 105/59; PULSE 70; RESP 18; TEMP 36.8; O2SAT 95
--- NOTE | 2023-01-06 | ECG_ITS ---
Test Reason : tachycardia Blood Pressure : / mmHG Vent. Rate : 133 BPM Atrial Rate : 000 BPM P-R Int : 000 ms QRS Dur : 084 ms QT Int : 332 ms P-R-T Axes : 000 071 221 degrees QTc Int : 494 ms Atrial flutter with rapid ventricular response vs atrial fibrillation Nonspecific T wave abnormality Abnormal ECG When compared with ECG of 04-JAN-2023 10:18, No significant changes seen Referred By: Nida Nagy Electronically Signed By:ABHISHEK HERNANDEZ
[2023-01-06] MEDS: 0.9 % Sodium Chloride Flush 3 ML SYRINGE IVFLUSH ×3 (01:52→15:51)
[2023-01-06 03:18] VITALS: BP 98/54; PULSE 68; RESP 18; TEMP 36.8; O2SAT 95
[2023-01-06 06:59] LABS: Glucose, Whole Blood 233 mg/dL (60-115)
[2023-01-06 07:15] VITALS: BP 136/83; PULSE 75; RESP 20; TEMP 36.7; O2SAT 97
[2023-01-06] MEDS: Insulin Lispro 100 UNIT/ML 3 ML VIAL SUBCUT ×2 (08:11→12:10)
[2023-01-06] MEDS: Insulin Glargine,Hum.rec.anlog 100 UNIT/ML 10 ML VIAL 39 UNIT SUBCUT (08:11)
[2023-01-06] MEDS: Gabapentin 100 MG CAPSULE 200 MG PO ×3 (08:12→20:39)
[2023-01-06] MEDS: DULoxetine HCl 30 MG CAPSULE.DR PO (08:12)
[2023-01-06] MEDS: Gabapentin 600 MG TABLET PO ×3 (08:12→20:40)
[2023-01-06] MEDS: Valsartan 40 MG TABLET PO ×2 (08:12→20:40)
[2023-01-06] MEDS: Metoprolol Tartrate 25 MG TABLET 75 MG PO ×2 (08:12→20:40)
[2023-01-06] MEDS: Atorvastatin Calcium 40 MG TABLET PO (08:12)
[2023-01-06] MEDS: Furosemide 40 MG TABLET PO (08:12)
[2023-01-06] MEDS: Apixaban 5 MG TABLET PO ×2 (08:12→20:40)
[2023-01-06] MEDS: Acetaminophen 325 MG TABLET 650 MG PO ×2 (08:17→20:39)
--- NOTE | 2023-01-06 08:38 | P.PNIM_ITS ---
Subjective Subjective Date of Service: 01/06/23 Interval History: seen and examined this morning follow up for chf feeling well, no sob no leg edema, chest pain or palpitations Wants nicotine patch Constitutional Constitutional: Reports no additional constitutional complaints, Denies body ache(s), Denies chills, Denies fever(s), Denies headache(s) and Denies weakness Eyes Eyes: Reports no additional eye complaints and Denies change in vision ENT Ears, Nose, Mouth, and Throat: Reports system reviewed and no additional complai nts, except as documented, Denies dizziness, Denies headache(s), Denies nasal congestion, Denies nasal discharge and Denies neck pain Cardiovascular Cardiovascular: Reports no additional cardiovascular complaints, Denies chest pain, Reports leg edema, Denies lightheadedness, Denies Loss of Consciousness, Denies palpitations and Denies dyspnea Respiratory Respiratory: Reports no additional respiratory complaints, Denies cough and Denies dyspnea Gastrointestinal Gastrointestinal: Reports no additional gastrointestinal complaints, Denies abdominal pain, Denies diarrhea, Denies nausea and Denies vomiting Genitourinary Genitourinary: Reports no additional male genitourinary complaints and Denies urinary incontinence Musculoskeletal Musculoskeletal: Reports no additional musculoskeletal complaints, Denies back pain, Denies arthralgias, Denies joint swelling, Denies neck pain, Denies numbness and Denies tingling Integumentary/Breasts Skin/Breast: Reports no additional skin complaints and Denies rash Neurologic Neurologic: Reports system reviewed and no additional complaints, except as documented, Denies Abnormal speech present, Denies dizziness, Denies headache(s), Denies numbness, Denies tingling and Denies weakness Psychiatric Psychiatric: Reports no additional psychiatric complaints Endocrine Endocrine: Denies palpitations Physical Exam Vital Signs: Vital Signs: Last Vital Signs Temp 98.0 F 01/06/23 07:15 Pulse 75 01/06/23 07:15 Resp 20 01/06/23 07:15 BP 136/83 01/06/23 07:15 Pulse Ox 97 01/06/23 07:15 O2 Del Method Room Air 01/06/23 07:15 BMI result Body Mass Index 23.8 Const: General: cooperative, healthy appearing, comfortable, no acute distress, alert and awake Nutritional Appearance: average body habitus Orientation/consciousness: patient oriented x3 Limitations: no limitations HEENT: Head: Yes normal to inspection, Yes normocephalic and Yes atraumatic Ears: hearing grossly normal bilaterally General nose exam: Normal external nose present Face and sinus: Yes normal facial exam Mouth: Normal oral and palatal mucosa present Throat: Yes posterior oropharynx normal Eyes: General: appearance normal, both eyes and all related structures Pupils: Equal, round and reactive pupils present Neck: Neck: Yes normal visual inspection, Yes trachea midline, Yes supple and Yes no JVD Chest: Chest palpation & inspection: normal inspection of the chest Resp: Other: fine basilar rales Effort & Inspection: normal respiratory effort, no respiratory distress and no use of accessory muscles Auscultation: clear to auscultation bilaterally and rales bilateral Cardio: Jugular venous distension: no JVD Rate: regular rate Rhythm: regular rhythm Heart sounds: S1 normal heart sound present, S2 normal heart sound present, no click, no gallops, no murmurs and no rubs Peripheral pulses: Peripheral pulses 2+ throughout GI: Inspection: Yes normal to inspection and No distended Palpation (GI): Soft to palpation and nontender Auscultation: normal bowel sounds Back/Spine/Pelvis: Other: +TTP to left lumbar soft tissue with no midline tenderness over the spine. Normal straight leg raise Thoracic/Lumbar Spine: thoracic and lumbar spine normal to inspection Skin: General skin exam: no rashes or lesions noted Neuro: General: patient oriented x3, no focal motor deficits, CN's II-XI intact bilaterally and normal sensation to monofilament Cranial nerves: Yes Equal, round and reactive pupils present Cognition (Neuro): normal cognition Speech: No Abnormal speech present Gait exam (Neuro): Normal gait present Motor exam (neuro): 5/5 motor strength present throughout Sensory Exam: Normal double simultaneous stimulation for sensation Deep tendon reflexes (DTR's): Right patellar reflex intensity grade: 2+ and Left patellar reflex i ntensity grade: 2+ Extrem: Other: trace leg edema General: Yes normal to inspection, Yes no pedal edema, No clubbing, No cyanosis and Yes edema Objective Data Active Medications Acetaminophen (Acetaminophen 325 Mg Tablet) 650 mg PO Q6H PRN PRN Reason: Pain, Mild (Pain Scale 1-3) Last Admin: 01/06/23 08:17 Dose: 650 mg Documented By: TOM Albuterol Sulfate (Albuterol Sulfate 90 Mcg 8 Gm Inhaler) 2 puff INHALE Q4H PRN PRN Reason: Shortness Of Breath Or Wheezing Apixaban (Apixaban 5 Mg Tablet) 5 mg PO BID [facility] Last Admin: 01/06/23 08:12 Dose: 5 mg Documented By: TOM Atorvastatin Calcium (Atorvastatin Calcium 40 Mg Tablet) 40 mg PO DAILY [facility] Last Admin: 01/06/23 08:12 Dose: 40 mg Documented By: TOM Baclofen (Baclofen 10 Mg Tablet) 5 mg PO TID PRN PRN Reason: Muscle Spasm Last Admin: 01/05/23 20:43 Dose: 5 mg Documented By: CLAUDE Benzonatate (Benzonatate 100 Mg Capsule) 100 mg PO TID PRN PRN Reason: Cough Dextrose (Dextrose 50 % 25 Gm/50 Ml Syringe) 25 gm IVPUSH Q15M PRN; Protocol PRN Reason: per Hypoglycemia Standing Ord. Docusate Sodium (Docusate Sodium 100 Mg Capsule) 100 mg PO DAILY PRN PRN Reason: Constipation Last Admin: 01/04/23 18:56 Dose: 100 mg Documented By: ELEAZAR Duloxetine HCl (Duloxetine Hcl 30 Mg Capsule.Dr) 30 mg PO DAILY [facility] Last Admin: 01/06/23 08:12 Dose: 30 mg Documented By: TOM Furosemide (Furosemide 40 Mg Tablet) 40 mg PO DAILY [facility]; Protocol Last Admin: 01/06/23 08:12 Dose: 40 mg Documented By: TOM Gabapentin (Gabapentin 100 Mg Capsule) 200 mg PO TID [facility] Last Admin: 01/06/23 08:12 Dose: 200 mg Documented By: TOM Gabapentin (Gabapentin 600 Mg Tablet) 600 mg PO TID [facility] Last Admin: 01/06/23 08:12 Dose: 600 mg Documented By: TOM Glucose (Glucose Gel 15 Gm Gel..Gram.) 15 gm PO Q15M PRN; Protocol PRN Reason: per Hypoglycemia Standing Ord. Insulin Glargine (Insulin Glargine,Hum.Rec.Anlog 100 Unit/Ml 10 Ml Vial) 39 unit SUBCUT DAILY [facility] Last Admin: 01/06/23 08:11 Dose: 39 unit Documented By: TOM Insulin Human Lispro (Insulin Lispro 100 Unit/Ml 3 Ml Vial) 0 unit SUBCUT QIDACHS [facility]; Protocol Last Admin: 01/06/23 08:11 Dose: 4 unit Documented By: TOM Metoprolol Tartrate (Metoprolol Tartrate 25 Mg Tablet) 75 mg PO BID [facility]; Protocol Last Admin: 01/06/23 08:12 Dose: 75 mg Documented By: TOM Ondansetron HCl (Ondansetron Hcl 4 Mg/2 Ml Vial) 4 mg IVPUSH Q8H PRN PRN Reason: Nausea and Vomiting Pharmacy Consult (Consult Rx Perform Med Rec) 1 each MISCELLANE ONCE PRN PRN Reason: Consult order Sodium Chloride (0.9 % Sodium Chloride Flush 3 Ml Syringe) 3 ml IVFLUSH QSHIFT [facility] Last Admin: 01/06/23 08:11 Dose: 3 ml Documented By: TOM Trazodone HCl (Trazodone Hcl 50 Mg Tablet) 150 mg PO BEDTIME [facility] Last Admin: 01/05/23 22:00 Dose: 150 mg Documented By: CLAUDE Valsartan (Valsartan 40 Mg Tablet) 40 mg PO BID [facility]; Protocol Last Admin: 01/06/23 08:12 Dose: 40 mg Documented By: TOM Labs 01/04/23 07:01 01/05/23 06:38 Labs: Laboratory Results - last 24 hr 01/05/23 01/05/23 01/05/23 10:54 16:45 20:31 POC Glucose 195 H 237 H 242 H 01/06/23 06:52 POC Glucose 233 H Assessment and Plan (1) Heart failure, systolic, with acute decompensation: Status: Acute Plan Pt is a 62-year-old male with a PMH significant for?HFrEF of 40%, paroxysmal AFib on Eliquis, insulin-dependent diabetes type 2 with neuropathy, HTN, HLD, and mood disorder who presents to the ED with?increasing shortness of breath and lower leg edema the past week. Pt will be admitted to the hospital for treatment and further evaluation of acute CHF exacerbation. Acute on chronic combined systolic and diastolic heart failure exacerbation Secondary to medication noncompliance, not taking furosemide for the past month will transition to p.o. Lasix, 40 mg daily Lisinopril changed to valsartan with plan to transition to Entresto as outpatient Cardiology evaluated during hospital course Elevated troponin Initial troponin 112.8 with repeat flat at 132.[address] elevations or depressions, patient asymptomatic Likely type 2 the setting of increased demand. Underlying coronary artery disease can not be ruled out. Will need outpatient ischemic workup Paroxysmal AFib had episode of rapid afib 01/04, but converted before meds were given Continue metoprolol, Eliquis Insulin dependent diabetes type 2 Hold metformin Basal plus insulin regimen Diabetic neuropathy Continue gabapentin HTN Lisinopril changed to valsartan HLD Continue statin Mood disorder Continue home meds Tobacco use disorder Counseled regarding cessation. Nicotine patch ordered Full Code Attending:?Dr. Reeder dispo: return to [facility] - they are unable to accept him back until Saturday Requires ongoing inpatient hospitalization for safe disposition Time Spent With Patient Time: Total time managing care of this patient today ____ minutes. Quality Stroke Does the patient have a stroke diagnosis?: No VTE Prior VTE?: No VTE Risk Level:: Medical - moderate - high VTE Device Contraindication: Treatment Not Indicated VTE Drug Contraindication: N/A - Med Ordered
[2023-01-06] MEDS: Nicotine 7 MG PATCH.TD24 TRANSDERMA (10:11)
[2023-01-06 11:01] LABS: Glucose, Whole Blood 164 mg/dL (60-115)
[2023-01-06 11:03] VITALS: BP 134/81; PULSE 68; RESP 20; TEMP 36.2; O2SAT 100
[2023-01-06] MEDS: Docusate Sodium 100 MG CAPSULE PO (12:35)
[2023-01-06] MEDS: dilTIAZem HCL 50 MG/10 ML VIAL 10 MG IVPUSH (12:56)
--- NOTE | 2023-01-06 14:30 | PC.NURSE ---
at 1230 patient's rhythm changed from Sinus to A-fib with RVR, changes reported to provider. EKG ordered and completed, diltiazem 10mg IV push stat ordered and administered, patient converted to Sinus rhythm, rate controlled
[2023-01-06 15:23] VITALS: BP 144/85; PULSE 73; RESP 20; TEMP 36.5; O2SAT 100
[2023-01-06] MEDS: polyethylene glycoL 3350 17 GM POWD.PACK PO (15:51)
[2023-01-06 16:42] LABS: Glucose, Whole Blood 122 mg/dL (60-115)
[2023-01-06 20:00] VITALS: BP 165/97; PULSE 83; RESP 16; TEMP 36.8; O2SAT 98
[2023-01-06 20:28] LABS: Glucose, Whole Blood 112 mg/dL (60-115)
[2023-01-06] MEDS: traZODone HCL 50 MG TABLET 150 MG PO (20:47)
[2023-01-07] VITALS: BP 113/59; PULSE 63; RESP 20; TEMP 35.7; O2SAT 94
[2023-01-07] MEDS: 0.9 % Sodium Chloride Flush 3 ML SYRINGE IVFLUSH ×2 (00:25→07:58)
[2023-01-07 03:11] VITALS: BP 139/66; PULSE 74; RESP 16; TEMP 36.1
[2023-01-07 07:32] LABS: Glucose, Whole Blood 220 mg/dL (60-115)
[2023-01-07 07:36] VITALS: BP 135/79; PULSE 70; RESP 18; TEMP 36.4; O2SAT 98
[2023-01-07] MEDS: Nicotine 7 MG PATCH.TD24 TRANSDERMA (07:54)
[2023-01-07] MEDS: Metoprolol Tartrate 25 MG TABLET 75 MG PO (07:55)
[2023-01-07] MEDS: Furosemide 40 MG TABLET PO (07:55)
[2023-01-07] MEDS: DULoxetine HCl 30 MG CAPSULE.DR PO (07:55)
[2023-01-07] MEDS: Apixaban 5 MG TABLET PO (07:56)
[2023-01-07] MEDS: Acetaminophen 325 MG TABLET 650 MG PO (07:56)
[2023-01-07] MEDS: Gabapentin 100 MG CAPSULE 200 MG PO (07:57)
[2023-01-07] MEDS: Gabapentin 600 MG TABLET PO (07:57)
[2023-01-07] MEDS: Atorvastatin Calcium 40 MG TABLET PO (07:57)
[2023-01-07] MEDS: Valsartan 40 MG TABLET PO (07:57)
[2023-01-07] MEDS: Insulin Lispro 100 UNIT/ML 3 ML VIAL SUBCUT (08:00)
[2023-01-07] MEDS: Insulin Glargine,Hum.rec.anlog 100 UNIT/ML 10 ML VIAL 39 UNIT SUBCUT (08:01)
[2023-01-07 11:15] LABS: Glucose, Whole Blood 87 mg/dL (60-115)
--- NOTE | 2023-01-07 11:15 | P.DS_ITS ---
DS: Providers Provider Date of Service: 01/07/23 Date of admission: 01/03/23 15:42 Primary care physician: Gera Braun MD Consults: 01/03/23 15:42 Consult to Cardiology Routine Consulting Provider: [facility] Cardiovascular Services Reason for consultation: HFrEF exacerbation, 2nd hospitalization in past month Attending physician on discharge: Lex Braun DS: Diagnosis Discharge Diagnosis (1) Heart failure, systolic, with acute decompensation: Status: Acute DS: Summary Hospital Course Hospital Course: From H&P on day of admission Pt is a 62-year-old male with a PMH significant for?HFrEF of 40%, paroxysmal AFib on Eliquis, insulin-dependent diabetes type 2 with neuropathy, HTN, HLD, and mood disorder who presents to the ED with?increasing shortness of breath and lower leg edema the past week.? Patient was recently admitted to the hospital 1 month prior on 11/30/2022 through 12/07/2022 and treated for acute CHF exacerbation.? Patient states that upon discharge he was not prescribed furosemide and has not been taking any ?water pill? since discharge.? Has also not followed up with cardiology since discharge.? Patient also endorses orthopnea, PND, and dyspnea with exertion, saying that he even gets fatigued eating.? The patient also complains of lower back pain radiates down his legs for the past few weeks, especially noticeable when he either bends over or lays on his back.? Patient denies falling or trauma to the area.? Patient also complains of chills, headache, myalgias, cough occasionally productive of whitish sputum for the past 2 weeks works, has felt better the past 4 days.? Patient feels ?chest tightness? with breathing especially with exertion, but denies chest pain/pressure.? No nausea, vomiting, abdominal pain. In the ED patient was afebrile but slightly hypertensive at 146/80, satting at 98% on RA. Labs were significant for stable H&H of 11.4/35.1, initial troponin 112.8 with repeat flat at 132.5, and BNP elevated at 800.? Electrolytes WNL.? Renal function baseline.? Hepatic function WNL. CXR showed small bilateral pleural effusions with left greater than right. EKG demonstrated normal sinus rhythm with unspecified T-wave abnormality but no evidence of ST elevations or depressions. Pt was treated with furosemide 40 mg IV. Pt will be admitted to the hospital for treatment and further evaluation of acute CHF exacerbation Acute on chronic combined systolic and diastolic heart failure exacerbation. Secondary to medication noncompliance, not taking furosemide for the past month. Initially treated with IV lasix with good effect and improvement in respiratory symptoms and lower leg edema. He was seen in consultation by Cardiology, lisinopril was recommended to be changed to valsartan with plan to transition to Entresto as outpatient. Will be transitioned back to oral Lasix upon discharge. Will need outpatient cardiology follow up for planned transition to Entresto and additional ischemic workup. Patient initially cleared for discharge on Saturday but was unable to be accepted back at alf until Saturday. Elevated troponin Initial troponin 112.8 with repeat flat at 132.5. Likely type 2 the setting of increased demand.? Underlying coronary artery disease can not be ruled out.? Will need outpatient ischemic workup. Paroxysmal AFib Had episode of rapid afib, but converted before meds were given. Continue metoprolol, Eliquis. Aspirin was discontinued. Status at Discharge Overall status at discharge: patient is back to baseline Time Spent with Patient Time attestation: Total time managing care of this patient today ____ minutes. Discharge coordination time: Greater than 30 minutes Quality: Safe Use of Opioids Does Pt have an Active Cancer Diagnosis on the Problem List?: No Quality: Stroke Does the patient have a stroke diagnosis?: No Physical Exam Vital Signs: Vital Signs: Last Vital Signs Temp 97.6 F 01/07/23 07:36 Pulse 70 01/07/23 07:36 Resp 18 01/07/23 07:36 BP 135/79 01/07/23 07:36 Pulse Ox 98 01/07/23 07:36 O2 Del Method Room Air 01/07/23 07:36 BMI result Body Mass Index 23.8 General: AOx3, no acute distress Resp: CTA bilaterally CVS: S1, S2, RRR GI: +BS, NT, no distention Skin: No rash Neuro: Cranial nerves II-XII grossly intact bilaterally. Motor grossly intact bilaterally Extremities: No edema Psych: Appropriate affect DS: Data Data Completed and Pending Labs on day of discharge: Laboratory Results - last 24 hr 01/06/23 01/06/23 01/07/23 16:37 20:18 07:28 POC Glucose 122 H 112 220 H 01/07/23 11:03 POC Glucose 87 Discharge Plan Discharge Anticipated Discharge Date/Time: 01/05/23 13:44 Patient Disposition: Home, Self-Care Discharge Diagnosis: Acute on chronic chf paroxysmal atrial fibrillation Referrals: Gera Braun MD [Primary Care Provider] - 1 Week Pilo Heranndez MD [Physician] - 1 Week Discharge Medications: New valsartan 40 mg Tablet 40 mg PO BID 30 Days Qty: 60 0RF Protocol: Hold for SBP< HOLD for SBP < : 90 furosemide [Lasix] 40 mg tablet 40 mg PO DAILY 45 Days Qty: 45 0RF Rx Instructions: take 40 mg daily. if weight gain greater then 3 lbs in one day, take an additional 40 mg tablet Continued trazodone 50 mg tablet 150 mg PO BEDTIME benzonatate 100 mg capsule 100 mg PO TID PRN (Reason: Cough) baclofen 5 mg tablet 5 mg PO TID PRN (Reason: Muscle Spasm) atorvastatin 40 mg tablet 40 mg PO DAILY metformin 1,000 mg tablet 1,000 mg PO BIDWM gabapentin 100 mg capsule 200 mg PO TID albuterol sulfate [Ventolin HFA] 90 mcg/actuation HFA aerosol inhaler 2 puff inhalation Q4H PRN (Reason: Shortness Of Breath Or Wheezing) duloxetine 30 mg capsule,delayed release(DR/EC) 30 mg PO DAILY Eliquis 5 mg tablet 5 mg PO BID insulin aspart U-100 [Novolog U-100 Insulin aspart] 100 unit/mL solution See Protocol subcut QIDACHS Protocol: Insulin Correction Scale Less than or equal to 110 ---- Give (units): 0 111 to 150 Give (units): 0 151 to 200 Give (units): 2 201 to 250 Give (units): 4 251 to 300 Give (units): 6 301 to 350 Give (units): 8 Greater than 350 Give (units): 10 Call MD if Blood Glucose > : 350 insulin glargine [Lantus Solostar U-100 Insulin] 100 unit/mL (3 mL) insulin pen 52 unit subcut DAILY gabapentin 600 mg tablet 600 mg PO TID acetaminophen 500 mg tablet 500 mg PO TID PRN (Reason: PAIN) metoprolol tartrate 25 mg Tablet 75 mg PO BID Qty: 60 0RF Protocol: Hold for SBP/HR < HOLD for SBP < : 90 HOLD for HR < : 60 azithromycin 250 mg tablet See Rx Instructions PO .COMPLEX Qty: 6 0RF Rx Instructions: take 500 mg today (day 1), then 250 mg for 4 days (days 2-5) PO Discontinued furosemide 40 mg tablet 40 mg PO DAILY aspirin 81 mg tablet,delayed release (DR/EC) 81 mg PO DAILY lisinopril 5 mg tablet 5 mg PO DAILY No Action (DME) lancets [OneTouch Delica Plus Lancet] 33 gauge misc See Rx Instructions .Route Qty: 100 0RF Rx Instructions: test blood sugar 3 times a day (DME) blood-glucose meter [OneTouch Verio Flex Start] Kit See Rx Instructions .Route Qty: 1 0RF Rx Instructions: As directed (DME) OneTouch Verio test strips Strip See Rx Instructions .Route Qty: 100 0RF Rx Instructions: Test blood sugar 3 times per day (DME) lancets [1st Tier Unilet ComforTouch] 30 gauge misc See Rx Instructions .Route Rx Instructions: As directed (DME) pen needle, diabetic [Ultracare Pen Needle] 31 gauge x 5/16 needle See Rx Instructions .ROUTE .MEDSUPPLY Qty: 1200 Rx Instructions: As directed Discharge Orders: Discharge Order (Routine); Ordered 01/07/23 Ordered By: Ramona Healy Diet: low salt/diabetic Activity on Discharge: As tolerated Stand Alone Forms: Patient Portal Discharge page Care Plan Goals: see below Health Concerns: acute on chronic CHF atrial fibrillation Plan of Treatment: stop taking lisinopril, start taking losartan stop taking aspirin take lasix 40 mg daily monitor your weight daily, if you can more then 3 pounds in one day take an additional 40 mg tablet. if you have to take an additional tablet two days in a row call your PCP or cardiology office follow low salt diet, diabetic diet take all other medications as prescribed follow up with cardiology in two weeks Assessment: see discharge summary
[2023-01-07 11:32] VITALS: BP 135/79; PULSE 68; RESP 20; TEMP 36.4; O2SAT 100
[2023-01-07 12:14] LABS: Glucose, Whole Blood 101 mg/dL (60-115)
--- NOTE | 2023-01-07 12:32 | MHC.CM.PN ---
Patient has been medically cleared for dc to [facility] today at 1:30 PM; [facility] staff will transport Patient.CM met with Patient at bedside and addressed IMM with him, providing Patient with the original and placing a copy on the chart.
--- NOTE | 2023-01-07 12:39 | P.F2F_ITS ---
Service Date Service Date: 01/07/23 Encounter Date of encounter: 01/07/23 Reasons for Services Signs and symptoms assessed: Medication noncompliance with Lasix Reason for residential: medication management and teach disease management Homebound: Leaving the home is medically contraindicated at this time without the asist of a device and/or another person due th the listed conditions above and below. Reason homebound: unable to drive Certification: Based on the above findings, I certify that this patient is confined to the home and needs intermittent residential care, physical therapy and/or speech therapy, or continues to need occupational therapy. The patient is under my care, and I have initiated the establishment of the plan of care. The patient will be followed by a physician who will periodically review the plan of care. Time Spent With Patient Time: Total time managing care of this patient today ____ minutes.
== END 2023-01-07 14:09 | disposition home health service (06) | DRG 291 ==
LOC: HO.ED 14:20 → HO.EDOVER 15:55 → HO.IMC 19:29
PROVIDERS: Family Medicine; Nurse Practitioner Family; Physician Assistant Medical; Student in an Organized Health Care Education/Training Program; Admitting Provider Student in an Organized Health Care Education/Training Program; Emergency Provider Emergency Medicine Emergency Medical Services; PCP Internal Medicine; Visit Provider Student in an Organized Health Care Education/Training Program
DX: I11.0 Hypertensive heart disease with heart failure (principal); I50.23 Acute on chronic systolic (congestive) heart failure; E11.42 Type 2 diabetes mellitus with diabetic polyneuropathy; Z20.822 Contact with and (suspected) exposure to COVID-19; E78.2 Mixed hyperlipidemia; J44.9 Chronic obstructive pulmonary disease, unspecified; F10.10 Alcohol abuse, uncomplicated; I48.0 Paroxysmal atrial fibrillation; T50.1X6A Underdosing of loop [high-ceiling] diuretics, initial encounter; F39 Unspecified mood [affective] disorder; I25.10 Atherosclerotic heart disease of native coronary artery without angina pectoris; Z91.199 Patient's noncompliance with other medical treatment and regimen due to unspecified reason; Z87.891 Personal history of nicotine dependence; Z79.4 Long term (current) use of insulin; Z79.01 Long term (current) use of anticoagulants; Z79.84 Long term (current) use of oral hypoglycemic drugs; Z79.899 Other long term (current) drug therapy
CPT/HCPCS: 0241U; 36415; 71045; 80048; 80076; 82947; 83735; 83880; 84484; 85025; 85027; 93005; 99285; J1940; J3475

== ENCOUNTER → 2023-01-03 10:03 | Outpatient (BNV) | payer OTHER, SELFPAY | PROVIDERS: Admitting Provider Student in an Organized Health Care Education/Training Program; Emergency Provider Emergency Medicine Emergency Medical Services; PCP Internal Medicine; Visit Provider Internal Medicine Cardiovascular Disease | DX: R07.9 Chest pain, unspecified (principal); R06.02 Shortness of breath | CPT/HCPCS: 93010 ==

== ENCOUNTER 2023-01-03 15:42 | Outpatient (BNV) | payer OTHER, SELFPAY | END 2023-01-06 12:36 | PROVIDERS: Admitting Provider Student in an Organized Health Care Education/Training Program; Emergency Provider Emergency Medicine Emergency Medical Services; PCP Internal Medicine; Visit Provider Internal Medicine | DX: I48.92 Unspecified atrial flutter (principal); R94.31 Abnormal electrocardiogram [ECG] [EKG] | CPT/HCPCS: 93010 ==

== ENCOUNTER 2023-01-03 15:42 | Outpatient (BNV) | payer OTHER, SELFPAY | END 2023-01-04 10:18 | PROVIDERS: Admitting Provider Student in an Organized Health Care Education/Training Program; Emergency Provider Emergency Medicine Emergency Medical Services; PCP Internal Medicine; Visit Provider Internal Medicine Cardiovascular Disease | DX: I48.92 Unspecified atrial flutter (principal) | CPT/HCPCS: 93010 ==

== ENCOUNTER → 2023-01-03 15:42 | Outpatient (BNV) | payer OTHER, SELFPAY | PROVIDERS: Admitting Provider Student in an Organized Health Care Education/Training Program; Emergency Provider Emergency Medicine Emergency Medical Services; PCP Internal Medicine; Visit Provider Internal Medicine Cardiovascular Disease | DX: I50.23 Acute on chronic systolic (congestive) heart failure (principal); I48.0 Paroxysmal atrial fibrillation | CPT/HCPCS: 99222; 99231 ==

== ENCOUNTER → 2023-01-03 15:42 | Outpatient (BNV) | payer OTHER, SELFPAY | PROVIDERS: Admitting Provider Student in an Organized Health Care Education/Training Program; Emergency Provider Emergency Medicine Emergency Medical Services; PCP Internal Medicine; Visit Provider Physician Assistant Medical | DX: I50.23 Acute on chronic systolic (congestive) heart failure (principal) | CPT/HCPCS: 99223; 99232; 99233; 99239; G0180 ==

== ENCOUNTER → 2023-01-29 08:07 | Outpatient (REF) | payer OTHER, SELFPAY ==
--- NOTE | ~2023-01-29 | NM_ITS ---
Myocardial perfusion study Indication: Paroxysmal atrial fibrillation to evaluate for myocardial ischemia Technique: The patient was brought in for a Lexiscan perfusion study on 01/29/2023. Patient performed low-level exercise and was injected 0.4 mg of Lexiscan intravenously. Within a minute of injection, 25 mCi of sestamibi was given intravenously. Images were obtained using the SPECT gamma camera interlaced with the gating device. Images were obtained in supine position. Resting perfusion study was performed on 01/30/2023. Patient was administered 25 mCi of sestamibi intravenously at rest. Images were then obtained in supine position. Images obtained with and without CT attenuation. Total DLP 99 mGy-cm. Images were processed with the software and compared side to side in short axis, horizontal long axis and vertical long axis views. Findings: The stress perfusion study showed non attenuated images show nonspecific thinning and minimally reduced uptake in the basal lateral wall of the LV myocardium. Remainder of the LV myocardium is normally perfused. Attenuation corrected images show overall normal uptake of radiotracer in all segments of LV myocardium.. The gated study shows reduced LV systolic function with calculated LVEF of 36%. LV cavity is mildly dilated size. The gated study shows normal systolic wall thickening and contraction of segments. Resting study shows no significant change in perfusion pattern compared to stress perfusion study. Gating at rest reveals normal systolic wall motion with ejection fraction at 41%. The findings are consistent with no clear reversible defect suggestive of ischemia. NM/NM cardiolite stress test Impression: 1. Myocardial perfusion imaging study shows likely normal myocardial perfusion 2. Gated LVEF is 36% 3. Transient ischemic dilatation not present EKG is nondiagnostic for ischemia
--- NOTE | 2023-01-29 08:18 | CA_ITS ---
Acquisition Time: 2023-01-29 08:30:32 Total Exercise Time: 00:00:56 Test Indications: CARDIOMYOPATHY Medications: SEE H Protocol: DANAY Max HR: 104 BPM 65% of Pred: 160 BPM Max BP: 156/086 mmHG Max Work Load: 2.6 METS Exercise stress test exercise 56 sec of Danay protocol achieving 63% MPHR with request to stop due to back and leg pains, without anginal symptoms, without arrhytmias, without EKG changes. PT assisted to sitting position. Test changed to pharmacological stress test with Lexiscan. Pharmacological stress test with Lexiscan injection while sitting and moving his arm, without anginal symptoms, without arrhythmias, with normotensive response to injection, with nondiagostic EKGs. Nuclear images pending. Test reviewed with Dr. Garcia. Referred By: Pilo Hernandez Overread By: Mary Bneoit
--- NOTE | 2023-01-29 08:19 | HM_ITS ---
* Total monitoring time 2 days. * Underlying rhythm is sinus. * Atrial fibrillation is noted about 7% of the time. Longest episode about 1 hour and 46 minutes. Fastest rate 191/Min. * No significant pauses or AV blocks. * Rare supraventricular/ventricular ectopy. * No patient markers or events in diary. * Study positive for atrial fibrillation with markedly high rates. MTDD
== END ==
LOC: HO.CARD 08:07
PROVIDERS: Visit Provider Internal Medicine Cardiovascular Disease
DX: I50.23 Acute on chronic systolic (congestive) heart failure (principal); I48.0 Paroxysmal atrial fibrillation
CPT/HCPCS: 78452; 93017; 93225; A9500; J0280; J2785

== ENCOUNTER → 2023-01-29 08:18 | Outpatient (BNV) | payer OTHER, SELFPAY | PROVIDERS: Visit Provider Nurse Practitioner | DX: I48.0 Paroxysmal atrial fibrillation (principal) | CPT/HCPCS: 78452; 93016; 93018; 93227 ==